=== PATIENT | male | born 1955 | race Caucasian/White ===

== ENCOUNTER 2024-09-25 12:09 | Inpatient (IN) | payer MEDICARE, OTHER, SELFPAY ==
[2024-09-25 10:06] VITALS: BP 116/60
--- NOTE | 2024-09-25 10:49 | ED.GENMED ---
History of Present Illness
General
Chief Complaint: Abnormal Lab Value
Source: patient
Exam Limitations: none
Time Seen by Provider: 09/25/24 10:19
Nursing documentation reviewed up to this point in time: agreed with
History of Present Illness
History of Present Illness:
Patient recently diagnosed with possible recurrent lymphoma, presents to ED secondary to 3-week history of night sweats, low-grade fever, fatigue, and decreased appetite, along with abdominal distention. Patient had blood work performed this
morning, as ordered by his oncologist, which revealed abnormal kidney function. With clinical concern for potential tumor lysis syndrome, patient was referred to ED for an evaluation. Denies nausea, vomiting, or diarrhea. Denies coughing. Denies
rash. Denies headache. Denies dizziness.
Past History
Past History
ED Past Medical History: Other (She has a history of Armstrong's esophagus )
ED Past Surgical History: Cholecystectomy and Other (Has had some metal removed from his )
Review of Systems
Review of Systems
Allergies reviewed?: Yes
All Other Systems: ROS reviewed and negative except as documented in HPI and ROS
Constitutional: Reports fever, fatigue and night sweats
EENT: Reports no symptoms
Respiratory: Reports no symptoms; Denies cough
Cardiac: Reports no symptoms
ABD/GI: Reports other (Abdominal distention); Denies abdominal pain, vomiting or diarrhea
: Reports no symptoms
Musculoskeletal: Reports no symptoms
Skin: Reports no symptoms
Neurological: Reports no symptoms
Phy Exam
Physical Exam
Physical Exam:
Physical Exam
General: mild distress, not acutely ill. afebrile. fatigued appearing
Head: nc/at. eomi
Neck: supple. no meningeal signs.
Heart: s1/s2 regular rate and rhythm, no murmur.
Lungs: no acute respiratory distress. clear bilaterally
Abdomen: normal bowel sounds. not tender. mild distention noted
Neuro: alert and oriented x 3. no focal neurological deficits
Skin: no rash
Psychiatric: well kept. interactive and cooperative
Extremities: no edema. no calf tenderness.
Course
Orders/Labs/Results
Orders:
Orders
09/25/24 10:20
Urinalysis Reflex To Culture Urgent
Date Specimen was Collected: 09/25/24
Time Specimen was Collected: 12:49
09/25/24 10:25
Complete Blood Count/With Diff Urgent
Comprehensive Metabolic Panel Urgent
Magnesium Urgent
Phosphorus Urgent
09/25/24 11:19
CT Abd/pel Without Iv Or Oral Urgent
Comment:
Reason For Exam: abdominal distension, ELIGIO
09/25/24 11:20
UA Reflex to Culture [Urinalysis Reflex To Culture] Stat
Date Specimen was Collected: 09/25/24
Time Specimen was Collected: 12:49
09/25/24 11:21
ONCOLOGY CONSULT Routine
Consulting Provider: Gigi Garcia
Was physician already notified: Yes
Reason for consult: recurrent lymphoma
Urine Creatinine Urgent
Date Specimen was Collected: 09/25/24
Time Specimen was Collected: 12:49
Urine Osmolality Random [Osmolality, Random Urine] Urgent
Date Specimen was Collected: 09/25/24
Time Specimen was Collected: 12:49
Urine Sodium Urgent
Date Specimen was Collected: 09/25/24
Time Specimen was Collected: 12:49
CR Chest - 2 Views Urgent
Comment:
Reason For Exam: fevers
09/25/24 11:22
NEPHROLOGY CONSULT Routine
Consulting Provider: Ruy Taveras V.
Was physician already notified: Yes
Reason for consult: ELIGIO
09/25/24 11:25
Add On- LAB Urgent
Tests Added?: Phosphorus
09/25/24 11:26
Add On- LAB Urgent
Tests Added?: DIrect bili, LDH, haptoglobin, retics, MARITZA polygel
09/25/24 11:32
Add On- LAB Urgent
Tests Added?: Uric acid
09/25/24 11:44
Pedraza Catheter [Catheter- Indwelling] As Directed
Reason for insertion: Acute Kidney Injury
Discontinue Date/Time: 09/28/24 0600
Intake/ Output As Directed
Frequency: Per unit guidelines
Comment: strict intake and output monitoring
Weight As Directed
Frequency: Daily
09/25/24 11:49
Add On- LAB Stat
Tests Added?: CPK
0.9% Sodium Chloride 1000 ml [Nss] 1,000 ml IV BOLUS
09/25/24 11:51
COVID-19 Antigen Stat
Source: Nasal Swab
Blood Culture Q30M
MELODY Source: Blood/Venous
Specimen Description:
Blood Culture Q30M
MELODY Source: Blood/Venous
Specimen Description:
Influenza A+B Rapid Molecular Stat
MELODY Source: Nasal Swab
Specimen Description:
I&O [Intake/ Output] As Directed
Frequency: Per unit guidelines
09/25/24 11:52
Admit/Transfer Patient As Directed
Co-Sign Provider:
Level of Care: Inpatient admission
Assign to:: Medical/Surgical
Physician / Group: Hospitalist
Diagnosis: ELIGIO
Reason for Hospitalization: ELIGIO
Expected length of stay greater than two midnights?: Yes
ELOS- Estimated Length of Stay in days: 5
I certify the patient meets the requirements for IP care: Yes
PRN Pain Medication Management As Directed
May give lesser potent ordered pain med per pt: Yes
preference::
Protocol:: Medication orders for pain may be administered in a
manner that supports deferring to patient preference
when the pt is:
- Requesting an ordered lesser potent pain medication.
Least to most potent pain medications are defined
as: acetaminophen < NSAID < tramadol < opioids
(morphine, oxycodone, hydromorphone).
- Requesting a lesser dose of the same medication IF
ORDERED.
- Requesting a less intrusive route of administration
if both routes are prescribed by the provider (PO <
IV).
09/25/24 11:54
Add On- LAB Urgent
Tests Added?: uric acid
Code Status As Directed
Resuscitation Status: Full Code
09/25/24 12:00
0.9% Sodium Chloride 500 ml [Nss] 500 ml IV 100 mls/hr
09/25/24 12:04
PT/INR [Prothrombin Time] Stat
PTT Stat
Abnormal Lab Results
09/25/24
10:25
WBC 4.4 L 10^3/uL
(4.8-10.8)
RBC 3.44 L 10^6/uL
(4.70-6.10)
Hgb 8.9 L g/dL
(13.0-18.0)
Hct 27.0 L %
(39.0-52.0)
MCV 78.5 L fL
(80.0-94.0)
MCH 25.9 L pg
(27.0-31.0)
RDW 15.0 H %
(11.5-14.5)
Plt Count 101 L 10^3/uL
(130-400)
Absolute Lymphs (auto) 0.3 L 10^3/uL
(1.2-3.4)
Immature Gran % 0.9 H %
(0-0.5)
Neutrophils % 82.6 H %
(42.2-75.2)
Lymphocytes % 7.8 L %
(20.5-51.1)
BUN 70 H mg/dl
(9-20)
Creatinine 3.0 H mg/dL
(0.7-1.3)
Glucose 165 H mg/dl
(70-99)
Total Bilirubin 7.0 H mg/dl
(0.2-1.3)
AST 90 H U/L
(17-59)
Alkaline Phosphatase 353 H U/L
(38-126)
Total Protein 5.0 L g/dl
(6.3-8.2)
Albumin 2.6 L g/dl
(3.5-5.0)
09/25/24 10:25
09/25/24 10:25
Vital Signs
Initial and Last Documented VS:
Initial Vital Signs
Temp Pulse Resp BP Pulse Ox
97.5 F 114 18 116/60 97
09/25/24 10:06 09/25/24 10:06 09/25/24 10:06 09/25/24 10:06 09/25/24 10:06
Last Documented Vital Signs
Temp Pulse Resp BP Pulse Ox
97.5 F 114 18 116/60 95
09/25/24 10:06 09/25/24 10:06 09/25/24 10:06 09/25/24 10:06 09/25/24 11:15
MDM/Problems Addressed
MDM/Problems Addressed:
Blood work reviewed and noted, significant for acute renal failure along with pancytopenia. Patient will be admitted for further evaluation and treatment.
Nephrology () and heme/onc () notified via [facility]
*Critical Care Note
Total Time (30-74mins, 75-104mins- exclusive of procedures): Not Applicable
ED Attending Note
-
Portions of this chart may have been created with voice recognition software.� Occasional wrong word or��sound alike� substitutions may have occurred due to the inherent limitations of voice recognition software.
Discharge Plan
Departure
Patient Disposition: Admit
Date of Disposition: 09/25/24
Time of Disposition: 11:15
Admit to: Med/Surg
Presentation/result/management discussed w/ accepting MD/DO: Hospitalist
Discharge Problem:
Acute renal failure (ARF), Dehydration, Pancytopenia
Interventions
Interventions:
*Risk Screen - Suicide Last Done: 09/25/24 10:06
*General Assessment Last Done: 09/25/24 10:06
*Neglect/Abuse Screening Last Done: 09/25/24 11:07
*ED COVID-19 Vaccine History Last Done: 09/25/24 10:06
[2024-09-25 10:58] LABS: ALT (SGPT) 35 U/L (0-50); AST (SGOT) 90 U/L (17-59); Albumin 2.6 g/dl (3.5-5.0); Alkaline Phosphatase 353 U/L (38-126); Blood Urea Nitrogen 70 mg/dl (9-20); Carbon Dioxide 22 mmol/L (22-30); Chloride 102 mmol/L (98-107); Glucose 165 mg/dl (70-99); Magnesium 1.9 mg/dl (1.6-2.3); Potassium 4.1 mmol/L (3.5-5.1); Sodium 137 mmol/L (135-145)
[2024-09-25 11:04] LABS: Hemoglobin 8.9 g/dL (13.0-18.0); Mean Corpuscular Hgb 25.9 pg (27.0-31.0); Mean Corpuscular Volume 78.5 fL (80.0-94.0); Mean Platelet Volume 9.4 fL (7.4-10.4); Platelet Count 101 10^3/uL (130-400); Red Blood Cell Count 3.44 10^6/uL (4.70-6.10); White Blood Cell Count 4.4 10^3/uL (4.8-10.8)
[2024-09-25 11:09] LABS: % Basophils 0.2 % (0-2); % Eosinophils 0.5 % (0-6); % Immature Granulocytes 0.9 % (0-0.5); % Lymphocytes 7.8 % (20.5-51.1); % Neutrophils 82.6 % (42.2-75.2); Absolute Lymphocytes 0.3 10^3/uL (1.2-3.4); Absolute Monocytes 0.4 10^3/uL (0.1-0.6); Absolute Neutrophils 3.6 10^3/uL (1.4-6.5); Nucleated Red Blood Cells % 0 % (-)
[2024-09-25] MEDS: NSS 500 IV ×2 (11:23→19:50)
--- NOTE | 2024-09-25 11:37 | W.CON.NEPH ---
Consultation
-
Date/Time Consultation Requested: 09/25/2024 11:00
Date/Time Consultation Performed: 09/25/2024 11:30 AM
Requesting Provider: Dr. Cisneros
Performing Provider: Dr. Taveras
Reason for Consultation: Acute kidney injury
Medical History
-
Chief Complaint: Acute kidney injury
History of Present Illness:
The patient is a 69-year-old male with a past medical history of lymphoma. There has been strong suspicion for recurrence of his lymphoma. The patient has a history of Armstrong's esophagitis and is maintained on Protonix and Pepcid. he presented to
the emergency room with 3-week history of B symptoms including night sweats fevers fatigue decreased appetite and also noted abdominal distention. His oncologist had ordered routine lab work which noted acute renal failure with a creatinine
elevation to 3. There was significant concern for possible tumor lysis syndrome and he was sent to the emergency room for further evaluation. Of note the patient had been taking Naprosyn 400 mg twice daily the week prior to this admission for his
fever.
Past Medical History
Lymphoma
Armstrong's esophagitis
Social History
Tobacco: Non-Smoker
Alcohol: None
Family History
No chronic kidney disease
Allergies / Home Medications
Allergy/AdvReac Type Severity Reaction Status Date / Time
No Known Allergies Allergy Verified 09/25/24 10:10
�Medication �Instructions �Recorded �Confirmed �Type
metformin 1,000 mg tablet 1,000 mg PO BID 08/20/18 10/12/22 History
pantoprazole 40 mg tablet,delayed 40 mg PO BID 08/26/18 10/12/22 History
release
allopurinol 300 mg tablet 1 tab PO DAILY 10/01/20 10/12/22 History
famotidine 40 mg tablet 40 mg PO BID 10/12/22 10/12/22 History
Review of Systems
-
History Source: Patient
All other systems: Negative unless noted
Constitutional: Fever, Fatigue and Night Sweats
Abdomen/GI: Anorexia and Other (Abdominal distended)
: Other (Some noted decreased urine output)
Physical Exam
Vital Signs
Vital Signs
Temp Pulse Resp BP Pulse Ox
97.5 F 114 18 116/60 95
09/25/24 10:06 09/25/24 10:06 09/25/24 10:06 09/25/24 10:06 09/25/24 11:15
Lab Results
09/25/24 10:25
09/25/24 10:25
WBC 4.4 10^3/uL (4.8-10.8) L 09/25/24 10:25
RBC 3.44 10^6/uL (4.70-6.10) L 09/25/24 10:25
Hgb 8.9 g/dL (13.0-18.0) L 09/25/24 10:25
Hct 27.0 % (39.0-52.0) L 09/25/24 10:25
Plt Count 101 10^3/uL (130-400) L 09/25/24 10:25
Sodium 137 mmol/L (135-145) 09/25/24 10:25
Potassium 4.1 mmol/L (3.5-5.1) 09/25/24 10:25
Chloride 102 mmol/L (98-107) 09/25/24 10:25
Carbon Dioxide 22 mmol/L (22-30) 09/25/24 10:25
BUN 70 mg/dl (9-20) H 09/25/24 10:25
Creatinine 3.0 mg/dL (0.7-1.3) H 09/25/24 10:25
eGFR 21.80 09/25/24 10:25
Glucose 165 mg/dl (70-99) H 09/25/24 10:25
Calcium 9.0 mg/dl (8.4-10.2) 09/25/24 10:25
Albumin 2.6 g/dl (3.5-5.0) L 09/25/24 10:25
Physical Exam
General: AOx3, Nontoxic , NAD
HEENT: PERRL, EOMI, Anicteric, Conjunctivae Clear, Ear/Nose Intact, Hearing Normal, Oropharynx Clear/Moist, Dentition Intact, Facial Symmetry, Neck Supple, Neck: Trachea Midline, No JVD and No Thyromegaly, no Bruits
Respiratory: Clear to auscultation bilaterally with normal lung exersion
Cardiac: S1/S2 and Regular Rate/Rhythm
Breast: Deferred by me
Abdomen: Soft, Nontender, distended, Normal Bowel Sounds and No Hepatosplenomegaly
Rectal: Deferred by Provider
Genito-urinary: No Costovertebral Tenderness
Extremities: No Clubbing, No Cyanosis and No Edema
Skin: No Rash or open lesions
Neuro: Nonfocal/Grossly Intact, CN II-XII (Intact) and Strength (Musculoskeletal exam 5 out of 5 both upper and lower extremities)
Hematologic/Lymphatic: No Cervical Lymphadenopathy, No Submandibular Lymphadenopathy and No Supraclavicular Lymphadenopathy
Psych: Mood/afflect pleasant, Insight/judgement good and Appropriate
Vascular: plus 2 pedal and radial pulses
Data Reviewed
-
CT Scan: Report Reviewed by me (CT of abdomen and pelvis to be reviewed)
Labs: Labs Reviewed by me (BMP CBC)
Old Records: Reviewed (Reviewed previous records in electronic medical record from February 2023 creatinine 0.9)
Assessment/Plan
-
Impression:
Acute renal failure (3.0)
History of prior lymphoma with suspicion for recurrence given B symptoms
Pancytopenia
Armstrong's esophagus
Hypoalbuminemia
Long-term Diabetes
Plan:
ELIGIO:
-Strong suspicion for tumor lysis syndrome
-Obtain serum uric acid level, if elevated will likely need Rasburicase
-Would check CT of abdomen and pelvis to evaluate for abdominal distention and possible obstruction
-Will administer IV fluids NSS 200cc/hr
-With hold metformin in setting of acute renal failure
-Check urine sodium urine creatinine urinalysis and urine protein to creatinine ratio
-Must be hypervigilant with phosphate, calcium, and potassium in setting of tumor lysis syndrome
[2024-09-25 11:46] LABS: Phosphorus 3.6 mg/dl (2.5-4.5)
--- NOTE | 2024-09-25 11:58 | HPS.HSE ---
Family Physician
-
Family Physician: Saqib Ware
Chief Complaint
-
malaise
History of Present Illness
69yo M with PMHx of cholecystectomy, large B-cell lymphoma in remission for 5 years, GERD, DM, Hx of prostate CA s/p resection sent by oncologist due to abnormal bloodwork. Patient started to feel generally unwell about two months ago, had some
cough, fevers, nightsweats that gradually became more pronounced and were similar to his previous symptoms during active phase of lymphoma. He also developed worsening of the abdominal distension two weeks before admission with dark urine and
intermittent vomiting with bile. Most recent vomiting episode was at night before admission. He is passing gas and had BM in the morning of the admission day.
Labs showed ELIGIO, elevated bilirubin, alk.phos and pancytopenia
Medical History
Past Medical History
Past Medical History: Reports Other
Additional Past Medical History:
see HPI
Past Surgical History: Reports Other
Additional Past Surgical History:
See HPI
Social History
Tobacco: Other (occasional cigars)
Alcohol: Occasional
Family History
Family History: Not pertinent
Allergies / Home Medications
Allergies reflects when Allergies were last updated in [facility].
Home Medications with original date entered in [facility]
Allergy/Medication List:
Allergies
Allergy/AdvReac Type Severity Reaction Status Date / Time
No Known Allergies Allergy Verified 09/25/24 10:10
Home Medications
metformin 1,000 mg tablet 1,000 mg PO BID 08/20/18
pantoprazole 40 mg tablet,delayed release 40 mg PO DAILY 08/26/18
glipizide 5 mg tablet 5 mg PO BID 09/25/24
pantoprazole 40 mg tablet,delayed release 40 mg PO QPM PRN acid reflux/heartburn 09/25/24
Review of Systems
-
A 12 point ROS was completed and negative except as noted: Yes
Constitutional: Reports See HPI
Physical Exam
Vital Signs
Vital Signs
Temp Pulse Resp BP Pulse Ox
97.5 F 114 18 116/60 95
09/25/24 10:06 09/25/24 10:06 09/25/24 10:06 09/25/24 10:06 09/25/24 11:15
Physical Exam
General: Comfortable, Conversant and Appears in Distress
HEENT: NormoCephalic, Anicteric and Moist mucous membranes
Respiratory: Clear; No Wheezes or Crackles
Cardiac: S1/S2, Regular Rhythm and Tachycardia
GI: Non Tender and Distended
Genito-urinary: No costovertebral tender
Musculoskeletal: No Clubbing, No Cyanosis and No Edema
Skin: Warm; No Rash or Jaundice
Neuro: Awake, Alert, Oriented and AO x 3
Psych: Calm
Laboratory Results
-
09/25/24 10:25
09/25/24 10:25
Laboratory Results
Total Bilirubin 7.0 mg/dl (0.2-1.3) H 09/25/24 10:25
AST 90 U/L (17-59) H 09/25/24 10:25
ALT 35 U/L (0-50) 09/25/24 10:25
Alkaline Phosphatase 353 U/L (38-126) H 09/25/24 10:25
Data Reviewed
-
Lab Data: Labs Reviewed by me
Impression/Plan
-
A/P:
#ELIGIO concern for TLS due to large B-cell lymphoma recurrence
Ca, Potassium WNL
check Phosphorus, Uric acid
Oncology for advise on rasburicase
IVF
Nephrology
Check UA, UOsm, [place], UCr
Pedraza and follow I&O
follow Cr
#Fevers
most likely CA induced
Chest XR, blood Cx, UA
check COVID-19 and Influenza PCR
empyric Abx
#Abdominal distension
hepatosplenomegally?
CT abd
#Bilirubinemia
#Elevated AST
check direct bili, LDH, haptoglobin, Croombs, CPK
CT abd
follow LFT
#Elevated alk.phos
since s/p cholecystectomy - most likely 2/2 lymphoma
#Pancytopenia
follow CBC and transfuse as needed
#DM type 1 with unspecified complications
Insulin SS, DM diet, Accuchecks
hold oral hypoglycemics
#GERD
cont PPI
DVT ppx SCDs
Full code
I have spent at least 78min reviewing chart, test results, communication with consultants, family and providing direct patient care
[2024-09-25 12:22] LABS: COVID-19 Antigen Negative (Negative)
[2024-09-25] MEDS: NSS 1000 IV (13:23)
[2024-09-25 13:32] LABS: Reticulocyte Count 0.4 % (0.4-2.8)
--- NOTE | 2024-09-25 13:34 | CM ---
Attempted to see patient but was getting procedure. Dgtr outside room reviewed status prior to admit. Patient and live in 2 level home, no steps to enter. they have first floor full bathroom. Bedroom up 13 steps. He does not use any DME. In
2019 used [facility]. No history of SNF.
PCP Jayden Richardson
[facility]: [facility].
PLAN: home
[2024-09-25 13:40] LABS: Urine Albumin 2+ (Neg - Trace); Urine Bilirubin 2+ (Negative); Urine Character Cloudy (Clear); Urine Color Amber; Urine Glucose 1+ (Negative); Urine Ketone 1+ (Negative); Urine Leukocyte 2+ (Negative); Urine Nitrite Positive (Negative); Urine Occult Blood 1+ (Negative); Urine Specific Gravity 1.025 (<1.030); Urine Urobilinogen 4+ (Neg - 1+)
[2024-09-25 13:47] LABS: Urine Urothelial Cell 0-2 /LPF (FEW)
[2024-09-25 13:49] LABS: Urine Bacteria Moderate (Negative); Urine White Cell 26-30 /HPF (0-5)
[2024-09-25 13:52] LABS: INR 1.15; PT 15.2 Sec (11.4-14.6)
[2024-09-25 13:53] LABS: APTT 37.5 Sec (23.4-35.0)
[2024-09-25 13:54] LABS: Osmolality Urine 322 mOsm/kg (300-900)
--- NOTE | 2024-09-25 13:54 | W.PN.UPDATE ---
Update Note
Progress Note Update
#Elevated direct Bili
MRCP
NPO
GI consult
Follow LFT
[facility]
[2024-09-25 14:04] LABS: Urine Sodium 36 mmol/L (30-90)
[2024-09-25 14:05] LABS: Protein/creatinine Ratio 0.1; Urine Protein 33 mg/dl
[2024-09-25 14:43] LABS: Creatine Phosphokinase < 20 U/L (55-170); Uric Acid 9.2 mg/dl (3.5-8.5)
--- NOTE | 2024-09-25 14:54 | CON.GS ---
Consultation
-
Reason for Consultation: Umbilical hernia
Medical History
-
Chief Complaint: Abdominal distention, malaise
History of Present Illness:
Patient is a 69-year-old male being admitted by the hospitalist service after referral from his oncologist due to concern for diffuse large B-cell lymphoma relapse.
CT abdomen/pelvis imaging was performed due to abdominal distention and radiologist reading for possible incarcerated/strangulated hernia prompting hospitalist request for general surgery consult.
Patient seen and examined in the emergency department. His and daughter at bedside. He denies any localizing pain in the region of his known umbilical hernia that has been present since the 1980s. Patient's states that he has been
living with his hernia because he was previously told it was inoperable. Patient denies any acute changes in his hernia with regards to size and visual appearance. He does complain of a generalized abdominal distention and tightness but again no
localizing symptoms.
In further discussions patient was recently seen in outpatient surgical evaluation with Dr. Olivares and has been scheduled for excisional biopsy right axillary lymph node on 09/30/2024.
Past Medical History
Past Medical History: Other (GERD, DM2, history of prostate cancer, history of diffuse large B-cell lymphoma)
Past Surgical History: Other (Knee arthroscopy, exploratory laparotomy/cholecystectomy due to traumatic injury from lawnmower, radical perineal prostatectomy, excision lipoma)
Social History
Tobacco: Former Smoker
Personal:
Living: With Family
Family History
Family History: Reviewed & Not Pertinent
Allergies / Home Medications
Allergy/AdvReac Type Severity Reaction Status Date / Time
No Known Allergies Allergy Verified 09/25/24 10:10
�Medication �Instructions �Recorded �Confirmed �Type
metformin 1,000 mg tablet 1,000 mg PO BID 08/20/18 09/25/24 History
pantoprazole 40 mg tablet,delayed 40 mg PO DAILY 08/26/18 09/25/24 History
release
glipizide 5 mg tablet 5 mg PO BID 09/25/24 09/25/24 History
pantoprazole 40 mg tablet,delayed 40 mg PO QPM PRN acid 09/25/24 09/25/24 History
release reflux/heartburn
Review of Systems
-
A 10 point review of systems was completed, and was negative except as per HPI.
Physical Exam
Vital Signs
Temp Pulse Resp BP Pulse Ox
97.5 F 114 18 116/60 96
09/25/24 10:06 09/25/24 10:06 09/25/24 10:06 09/25/24 10:06 09/25/24 12:17
09/24/24 09/25/24 09/26/24
06:59 06:59 06:59
Actual Weight 96.2 kg
Lab Results
09/25/24 10:25
09/25/24 10:25
WBC 4.4 10^3/uL (4.8-10.8) L 09/25/24 10:25
Hgb 8.9 g/dL (13.0-18.0) L 09/25/24 10:25
Hct 27.0 % (39.0-52.0) L 09/25/24 10:25
Plt Count 101 10^3/uL (130-400) L 09/25/24 10:25
Abs Immat Gran (auto) 0.0 10^3/uL (0-0.05) 09/25/24 10:25
Neutrophils % 82.6 % (42.2-75.2) H 09/25/24 10:25
Physical Exam
General: Well Developed, Well Nourished, No Apparent Distress and Comfortable
HEENT: Normocephalic and Moist Mucous Membranes
Respiratory: Non Labored Respirations
Cardiac: Regular Rhythm
GI: Soft, Non Tender, Distended and Other (Soft, nontender umbilical hernia. Did not attempt to reduce. No erythema, no skin thickening)
Neuro: AO x 3
Psych: Calm
Data Reviewed
-
CT Scan: Image Personally Visualized and interpreted, Report Reviewed by me, Discussed with Physician, Discussed with Patient and Discussed with Family
Assessment / Plan
-
Assessment: 69-year-old male admitted with ELIGIO, suspected diffuse large B-cell lymphoma relapse.
Longstanding umbilical hernia, partially reducible - no subjective or objective signs of strangulation
Plan: With regards to his umbilical hernia there are no clinical signs of strangulation. It is partially reducible and fat-containing. Did not attempt to fully reduce. No acute umbilical hernia intervention is needed or anticipated.
Dr. Olivares will also follow-up with patient regarding potential timing of excisional lymph node biopsy which is currently scheduled for 09/30/2024.
--- NOTE | 2024-09-25 15:34 | CON.GI ---
Addendum entered and electronically signed by Stormy Narayan DO 09/25/24 16:48:
The patient was seen and examined by me independently in collaboration with the nurse practitioner.
Past medical history/social history/medications/allergies/family history reviewed.
Lab data and imaging data reviewed.
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 Elizabeth), Prostate Ca s/p radical
prostatectomy, hx cholecystectomy who presents with B symptoms concerning for recurrence of DLBL. PET CT scan showed b/l axillary LN, mediastinal LN and b/l hilar LN with increased FDG uptake suggestive for relapse. He was seen by oncology
yesterday, Hgb 9.3, Plt 108, BUN 60/Cr. 2.47, Tbili 5.1, Alk phos 298, AST 78, ALT 34, LDH 590, overall clinical picture concerning for tumor lysis syndrome. Repeat labs upon arrival: WBC 4.4, Hgb 8.9, MCV 78.5, Plt 101, PT 15.2, INR 1.15, Na 137, K
4.1, Cl 102, CO2 22, BUN 70, Cr. 3.0, uric acid 9.2, Tbili 7, Dbili 6, AST 90, Alk phos 353, CK <20, Total protein 5, Albumin 2.6.
Physical exam significant for scleral icterus, +hepatosplenomegaly, jaundice; umbilical hernia
#Elevated Liver Enzymes
#Hepatosplenomegaly
#Lymphadenopathy
#Pancytopenia
#ELIGIO
Direct hyperbiliurbinemia with Tbili 7/bili 6, Elevated alk phos 353 and AST 90. Given overall clinical picture, could represent infiltrative disease
-significant lymphadenopathy on recent PET-CT, IR biopsy pending
-recommend hepatitis serologies, ferritin, SPEP, IgG4 subclasses
-MRI/MRCP
-direct bili not consistent with hemolysis
Original Note:
Consultation
-
Date/Time Consultation Requested: 09/25/24 1355
Date/Time Consultation Performed: 09/25/24 1500
Requesting Provider: Dr. Umanzor
Performing Provider: Dr. Narayan/ADRIANNA Horn
Reason for Consultation: elevated LFTs
Medical History
Chief Complaint / HPI
Chief Complaint: fever, fatigue, weakness, decreased appetite, abd distention
History of Present Illness:
69-year-old male with past medical history of large B-cell lymphoma diagnosed 2020 treated with R-CHOP, Armstrong's esophagus diagnosed in 1979 with progression to high-grade dysplasia treated with 4 rounds of RFA with last endoscopy in March 2024
that was negative for high-grade dysplasia, GERD and prostate cancer who presents to the emergency room with 3-week history of abdominal bloating and distention, fevers since 09/12/2024, night sweats, weakness, fatigue, nausea and vomiting, with the
inability to take in any significant oral intake. Patient had initiated outpatient workup with chest x-ray [facility]. PET scan with oncology showing bilateral axillary lymph nodes, mediastinal lymph nodes concerning for relapse and
B-cell lymphoma. Saw outpatient surgery for evaluation for lymph node biopsy. Patient had outpatient labs showing acute kidney injury, elevated LFTs as well as a pancytopenia. Patient was sent to the emergency room for further evaluation. We are
asked to evaluate for elevated LFTs. The patient has a long GI history dating back to 1979 when he was diagnosed with Armstrong's esophagus. He was followed by Dr. Ramos for this taking pantoprazole 40 mg twice daily. He had routine surveillance
for this. The patient has been followed by Dr. Krista Elizabeth for the past 4 years. This developed into high-grade dysplasia and had treatment with RFA x 4. Last 1 being in September 2023. Repeat endoscopy in March 2024 without any further
high-grade dysplasia found. He continues to follow with Dr. Ramos for his routine colonoscopy. He does have a history of polyps. His mother has a history of colon cancer. His last colonoscopy was in December 2020. He has colonoscopies every 5
years. He will be due in 10/2025. The patient quit smoking age 33. He drinks approximately 4 ounces of bourbon on the weekends and maybe 6-8 beers. He denies any prior history of liver disease. He denies any tattoos, piercings, IV drug use or
cocaine straws. He does not eat any raw shellfish. He does have a cabin in [facility] [place], [place] and he does [place]. He does not eat mushrooms from the forest. He did trephinate a bobcat in June however on he shared amongst 5 friends and no one became
ill. He denies any recent sick contacts. When the patient developed onset of fevers he was taking Tylenol 1300 mg at a time. This is usually once a day. He was also using Aleve 220 mg (2 tablets) twice a day. He did this for approximately 1
week only. He stopped taking this around 09/19/2024. The patient does have some mild tenderness in the right upper quadrant upon palpation only. CT imaging does show hepatosplenomegaly. Daily medications include metformin, pantoprazole,
allopurinol and famotidine. Otherwise the patient denies any melena, hematochezia, dysphagia or odynophagia. The patient did notice that his urine became an orange color approximately 3 weeks ago. His stool is still dark brown. He denies any
pruritus or itching. His sclera are slightly icteric.
Past Medical History
Past Medical History: Other (Large B-cell lymphoma(2019 treated with R-CHOP) Armstrong's esophagus with history of high-grade dysplasia status post RFA x 4, prostate cancer status post prostatectomy, diabetes)
Past Surgical History: Cholecystectomy and Other (Knee arthroscopy, ex lap for shrapnel from lawnmower injury, radical perineal prostatectomy (10/2018), neck lipoma excision, radiofrequency ablation for Armstrong's esophagus)
Social History
Tobacco: Former Smoker (Quit at age 33 however has occasional cigar)
Alcohol: Occasional (Drinks on the weekends, 4 ounces of bourbon or 6-8 beers)
Drug: None
Personal:
Living: With Family
Family History
Family History: Other (Mother with history of colon cancer, no other GI malignancies or inflammatory bowel disease)
Allergies / Home Medications
Allergy/AdvReac Type Severity Reaction Status Date / Time
No Known Allergies Allergy Verified 09/25/24 10:10
�Medication �Instructions �Recorded
metformin 1,000 mg tablet 1,000 mg PO BID 08/20/18
pantoprazole 40 mg tablet,delayed 40 mg PO DAILY 08/26/18
release
glipizide 5 mg tablet 5 mg PO BID 09/25/24
pantoprazole 40 mg tablet,delayed 40 mg PO QPM PRN acid 09/25/24
release reflux/heartburn
Review of Systems
-
All other systems: A 12 pt ROS was Negative except as stated above in HPI
Vital Signs
Temp Pulse Resp BP Pulse Ox
97.5 F 114 18 116/60 96
09/25/24 10:06 09/25/24 10:06 09/25/24 10:06 09/25/24 10:06 09/25/24 12:17
Physical Exam
Exam
General: No Apparent Distress
HEENT: Other (Sclera slightly icteric)
Respiratory: Clear
Cardiac: Regular Rhythm
GI: Soft, Normal Bowel Sounds, Tender (Mild right upper quadrant tenderness) and Distended (Mildly distended.)
Skin: Warm and Dry
Neuro: AO x 3
Psych: Calm
Results
WBC 4.4 10^3/uL (4.8-10.8) L 09/25/24 10:25
Hgb 8.9 g/dL (13.0-18.0) L 09/25/24 10:25
Hct 27.0 % (39.0-52.0) L 09/25/24 10:25
MCV 78.5 fL (80.0-94.0) L 09/25/24 10:25
Plt Count 101 10^3/uL (130-400) L 09/25/24 10:25
Absolute Neuts (auto) 3.6 10^3/uL (1.4-6.5) 09/25/24 10:25
PT 15.2 Sec (11.4-14.6) H 09/25/24 13:25
INR 1.15 09/25/24 13:25
APTT 37.5 Sec (23.4-35.0) H 09/25/24 13:25
Sodium 137 mmol/L (135-145) 09/25/24 10:25
Potassium 4.1 mmol/L (3.5-5.1) 09/25/24 10:25
Chloride 102 mmol/L (98-107) 09/25/24 10:25
Carbon Dioxide 22 mmol/L (22-30) 09/25/24 10:25
BUN 70 mg/dl (9-20) H 09/25/24 10:25
Creatinine 3.0 mg/dL (0.7-1.3) H 09/25/24 10:25
Calcium 9.0 mg/dl (8.4-10.2) 09/25/24 10:25
Total Bilirubin 7.0 mg/dl (0.2-1.3) H 09/25/24 10:25
AST 90 U/L (17-59) H 09/25/24 10:25
ALT 35 U/L (0-50) 09/25/24 10:25
Alkaline Phosphatase 353 U/L (38-126) H 09/25/24 10:25
Diagnostic Image Results:
PET/CT 09/22/2024:
Hypermetabolic lymphadenopathy in the chest with multiple enlarged, FDG avid bilateral axillary, mediastinal, and bilateral hilar lymph nodes.Left AXILLARY lymph nodes with an SUV max of up to 7.3. Right AXILLARY lymph nodes with an SUV max of up to
6.7. Mediastinal lymph nodes with an SUV max of up to 9.0. Left hilar lymph nodes with an SUV max of 4.6. Right hilar lymph nodes with an SUV max of 3.5.Subsegmental atelectasis in the bilateral lung bases. Small hiatal hernia.
ABDOMEN and PELVIS:
The spleen is enlarged and hypermetabolic. The spleen measures 19 cm in size with an SUV max of 8.3.
FDG avid lymph nodes in the upper abdomen and retroperitoneum. Periportal lymph nodes with an SUV max of 6.1. Retroperitoneal lymph nodes with an SUV max of 4.9.
Physiologic uptake in the GI and tracts.
Hepatic steatosis. Surgically absent gallbladder. Moderate fat-containing umbilical hernia. Colonic diverticulosis. Collapsed urinary bladder. Surgically absent prostate gland. Surgical clips in the left inguinal region
CT abdomen pelvis without IV or oral contrast 09/25/2024:
IMPRESSION: No acute pathology of the abdomen or pelvis identified.
Hepatosplenomegaly. Stable
Fat-containing umbilical hernias. One contains associated fluid/thickening. Incarceration/strangulation cannot be excluded. Stable.
Moderate fecal material throughout the colon. Stable.
Left adrenal mass. Stable from 2021 suggesting it is benign.
CXR 09/25/24:
IMPRESSION:
Mild left lower lobe atelectasis versus scarring. Stable
Prior GI Procedures:
EGD: Per patient 03/2024 Dr. Krista Elizabeth
EGD with RFA 09/2023 Dr. Krista Elizabeth
Colonoscopy: Dr. Ramos Per patient 11/2020. Due for repeat 11/2025
History of Armstrong's with multiple endoscopic procedures with Dr. Ramos since 1979
Assessment / Plan
-
69-year-old male with past medical history of large B-cell lymphoma diagnosed 2019 treated with R-CHOP, Armstrong's esophagus diagnosed in 1979 with progression to high-grade dysplasia treated with 4 rounds of RFA with last endoscopy in March 2024
that was negative for high-grade dysplasia, GERD and prostate cancer who presents to the emergency room with 3-week history of abdominal bloating and distention, fevers since 09/12/2024, night sweats, weakness, fatigue, nausea and vomiting, with the
inability to take in any significant oral intake. Patient had initiated outpatient workup with chest x-ray [facility]. PET scan with oncology showing bilateral axillary lymph nodes, mediastinal lymph nodes concerning for relapse and
B-cell lymphoma. Saw outpatient surgery for evaluation for lymph node biopsy. Patient had outpatient labs showing acute kidney injury, elevated LFTs as well as a pancytopenia. Patient was sent to the emergency room for further evaluation. We are
asked to evaluate for elevated LFTs.
Impression:
Elevated LFTs and obstructive pattern: total bilirubin 7.0, direct bilirubin 6.0, AST at 90, ALT 35, alk phos 353
Suspected recurrence of diffuse large B-cell lymphoma
ELIGIO
pancytopenia
Constipation
Armstrong's esophagus
Plan:
-Check MRI without contrast with MRCP
-Await LDH and haptoglobin
-Check viral hepatitis studies, SPEP, ferritin, celiac, EBV panel
-Trend LFT, CBC, PT, INR
-Continue Pantoprazole 40 mg BID
-Will need bowel regimen, not much stool in rectum. Marked hepatosplenomegaly on CT imaging. Start Miralax as able.
-As per IM, Renal, Heme/Onc for other plans.
-Further recommendations to be forthcoming.
-
-
Thank you for consultation and allowing me to participate in the patient's care. Please call the global consumer sector vice president GI physician during the after hours with any questions or concerns.
[2024-09-25 15:35] VITALS: BP 109/53; BP_SYST 105
--- NOTE | 2024-09-25 16:20 | W.PN.UPDATE ---
Update Note
Progress Note Update
Attempted to see patient. He is in IR. Would maintain NPO after midnight to preserve option of surgery tomorrow. Tentatively for right axillary LN excisional bx and port-a-cath placement. Will see in the am.
[2024-09-25 16:44] VITALS: BP 128/57
[2024-09-25 16:54] VITALS: BP 126/57
[2024-09-25 17:33] VITALS: BP 146/74; BMI 32.7
--- NOTE | 2024-09-25 17:42 | PTCARENOTE ---
Pt walked from stretcher to bed x1 assist. Independent at baseline. Aaox3, morrow in tact draining blood tinged urine. VSS, admission complete by this RN. Pt does not complain of pain at the moment. Abdomen is distended. Oriented to room, call costa
within reach.
--- NOTE | 2024-09-25 17:47 | PHA.VAN.IN ---
Assessment
- Assessment
Renal Function: Appears elevated from baseline (03/13/23 BASELINE SCR: 0.9)
Concomitant Antimicrobials: ZOSYN
- Previous Dosing Experience
Previous Regimen: NONE
Plan
- Plan
Initial / Loading Dose: 1500MG
Maintenance Regimen: DOSING BY RANDOM LEVEL
Monitoring: RANDOM VANCOMYCIN LEVEL 09/26/24 AM
Pharmacokinetics Vancomycin I
- -
Patient Age: 69
Patient Sex: Male
Vancomycin Day #: 1
Indication: Other
Requesting Provider: BRIANDA
Height / Weight:
Height 5 ft 7 in
Actual Weight 94.71 kg
Pertinent Past Medical History: LARGE B CELL LYMPHOMA; PROSTATE CA; DM
- Vital Signs / Lab Results
Temp Pulse Resp BP Pulse Ox
97.7 F 114 20 146/74 95
09/25/24 17:33 09/25/24 17:33 09/25/24 17:33 09/25/24 17:33 09/25/24 17:33
Lab Results - Hematology
09/25/24
10:25
WBC 4.4 L
Lab Results - Chemistry
09/25/24
10:25
BUN 70 H
Creatinine 3.0 H
Albumin 2.6 L
Lab Results - Urine
09/25/24 09/25/24
13:09 13:10
Urine Nitrite (Reflex) Positive A Cancelled
Leukocyte Esterase Rfl 2+ A Cancelled
Urine WBC (Reflex) 26-30 A
Ur Squamous Epith Cells 11-15
Urine Bacteria (Reflex) Moderate A
Microbiology Results
09/25/24 11:51 Influenza Types A & B (DEONDRE) - Final
Nasal Swab Negative for Influenza A & B, NAAT
Negative results must be combined with clinical observations
and patient history.
Nucleic Acid Amplification test (NAAT)performed on the
[employer] platform.
[2024-09-25 17:48] VITALS: BMI 32.7
[2024-09-25] MEDS: ZOSYN IV (18:10)
[2024-09-25 18:36] LABS: Blood Urea Nitrogen 72 mg/dl (9-20); Calcium 8.7 mg/dl (8.4-10.2); Carbon Dioxide 22 mmol/L (22-30); Chloride 105 mmol/L (98-107); Estimated Creatinine Clearance 23 ml/min; Glucose 96 mg/dl (70-99); Potassium 4.4 mmol/L (3.5-5.1); Sodium 137 mmol/L (135-145); eGFR 19.44
[2024-09-25 19:16] LABS: Glucose - Point of Care 87 mg/dl (70-99)
[2024-09-25 19:24] LABS: Hepatitis B Surface Antigen Negative (Negative)
[2024-09-25 19:42] LABS: Hepatitis A Antibody, Total Negative (Negative); Hepatitis B Core Ab, Total Negative (Negative); Hepatitis B Surface Antibody Negative; Hepatitis C Antibody Negative (Negative)
[2024-09-25] MEDS: NSS 15 ML IV ×2 (19:49→20:30)
[2024-09-25] MEDS: ELITEK 50 MG IV (19:50)
[2024-09-25 20:24] LABS: Glucose - Point of Care 115 mg/dl (70-99)
[2024-09-25] MEDS: ZOSYN 50 IV (20:31)
[2024-09-25] MEDS: VANCOCIN 530 MG IV (21:51)
[2024-09-25 23:13] VITALS: BP 115/60
[2024-09-26] VITALS (7 sets, daily range): BP systolic 79–129; BP diastolic 56–77; BMI 33.1
[2024-09-26 01:26] LABS: Uric Acid - Rasburicase 7.4 mg/dl (3.5-8.5)
[2024-09-26] MEDS: ZOSYN 50 IV ×3 (02:05→20:34)
[2024-09-26] MEDS: NSS IV ×2 (02:07→19:49)
[2024-09-26] MEDS: NSS 500 IV (02:07)
[2024-09-26] MEDS: MORPHINE SULFATE 1 MG IV (02:28)
[2024-09-26] MEDS: NSS 1000 IV (05:40)
[2024-09-26 06:35] LABS: Uric Acid - Rasburicase 6.5 mg/dl (3.5-8.5)
[2024-09-26 06:38] LABS: INR 1.18; PT 15.5 Sec (11.4-14.6)
[2024-09-26 06:56] LABS: ALT (SGPT) 31 U/L (0-50); AST (SGOT) 75 U/L (17-59); Albumin 2.3 g/dl (3.5-5.0); Alkaline Phosphatase 270 U/L (38-126); Blood Urea Nitrogen 77 mg/dl (9-20); Calcium 8.7 mg/dl (8.4-10.2); Carbon Dioxide 22 mmol/L (22-30); Chloride 107 mmol/L (98-107); Direct Bilirubin 6.8 mg/dl (0.0-0.4); Estimated Creatinine Clearance 20 ml/min; Glucose 106 mg/dl (70-99); Magnesium 1.9 mg/dl (1.6-2.3); Potassium 4.8 mmol/L (3.5-5.1); Sodium 138 mmol/L (135-145); Total Bilirubin 7.6 mg/dl (0.2-1.3); Total Protein 4.7 g/dl (6.3-8.2); Uric Acid 6.5 mg/dl (3.5-8.5); eGFR 16.42
--- NOTE | 2024-09-26 08:07 | W.PN.ONC2 ---
Today's Communication / Plan
-
.
Impression
Impression
Suspected recurrent DLBCL, initially tx with RCHOP 2020. s/p IR Left LN core bx 09/25
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
EILGIO
pancytopenia
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
elevated Tbili/Dbili
urine culture negative to date
Plan
Plan
excisional LN bx
mediport placement
f/u hemolysis panel, though low suspicion with normal retic
allopurinol, renal dosing
CBC, CMP, LDH, urate, phos daily
f/u nephrology consult
Subjective/Objective
Subjective
no new complaints
Vital Signs:
Vital Signs
Temp Pulse Resp BP Pulse Ox
98.3 F 112 17 127/63 95
09/26/24 07:35 09/26/24 07:35 09/26/24 07:35 09/26/24 07:35 09/26/24 07:35
Lab Results:
Laboratory Data
WBC 4.4 10^3/uL (4.8-10.8) L 09/25/24 10:25
Hgb 8.9 g/dL (13.0-18.0) L 09/25/24 10:25
Plt Count 101 10^3/uL (130-400) L 09/25/24 10:25
PT 15.5 Sec (11.4-14.6) H 09/26/24 06:12
INR 1.18 09/26/24 06:12
APTT 37.5 Sec (23.4-35.0) H 09/25/24 13:25
eGFR 16.42 09/26/24 06:12
Orders
Orders
Orders From Last 24 Hours
09/25/24 13:49
Consult Interventional Radiology [[facility] CONSULT] Routine
09/25/24 14:49
SURGICAL CONSULT Routine
09/25/24 16:25
[facility] Pathology Routine
09/26/24 08:06
CBC/With Diff [Complete Blood Count/With Diff] Routine
CMP [Comprehensive Metabolic Panel] Routine
LDH Routine
Phos [Phosphorus] Routine
Uric Acid - Rasburicase Urgent
09/27/24 06:00
CBC/With Diff [Complete Blood Count/With Diff] IN AM
CMP [Comprehensive Metabolic Panel] IN AM
LDH IN AM
Phos [Phosphorus] IN AM
Uric Acid IN AM
09/28/24 06:00
CBC/With Diff [Complete Blood Count/With Diff] IN AM
CMP [Comprehensive Metabolic Panel] IN AM
LDH IN AM
Phos [Phosphorus] IN AM
Uric Acid IN AM
09/29/24 06:00
CBC/With Diff [Complete Blood Count/With Diff] IN AM
CMP [Comprehensive Metabolic Panel] IN AM
LDH IN AM
Phos [Phosphorus] IN AM
Uric Acid IN AM
09/30/24 06:00
CBC/With Diff [Complete Blood Count/With Diff] IN AM
CMP [Comprehensive Metabolic Panel] IN AM
LDH IN AM
Phos [Phosphorus] IN AM
Uric Acid IN AM
10/01/24 06:00
CBC/With Diff [Complete Blood Count/With Diff] IN AM
CMP [Comprehensive Metabolic Panel] IN AM
LDH IN AM
Phos [Phosphorus] IN AM
Uric Acid IN AM
[2024-09-26] MEDS: PROTONIX 40 MG PO (08:29)
[2024-09-26 08:39] LABS: Hematocrit 23.5 % (39.0-52.0); Mean Corpuscular Hgb 26.1 pg (27.0-31.0); Mean Corpuscular Volume 76.5 fL (80.0-94.0); Platelet Count 107 10^3/uL (130-400); Red Blood Cell Count 3.07 10^6/uL (4.70-6.10); Red Cell Dist. Width 15.4 % (11.5-14.5); White Blood Cell Count 4.2 10^3/uL (4.8-10.8)
[2024-09-26 08:50] LABS: Phosphorus 4.4 mg/dl (2.5-4.5)
--- NOTE | 2024-09-26 09:07 | PHA.VAN.FU ---
Vancomycin Assessment / Plan
- Assessment
Renal Function: SCR Decreasing (3.3->3.8)
WBC's are: Stable (4.2)
In the past 24 hrs, patient has been: Afebrile
Concomitant Antimicrobials: Piperacillin/Tazobactam
- Assessment - Therapeutic Drug Monitoring
Random Level: Vanco R lvl 15.0 ~8hrs after loading dose 1500mg given 09/25/242150
- Dosing Plan
Dosing by Level: Re-dose today
Dosing Comments: 500mg x1 to complete loading dose
- Monitoring Plan
Random Level: Vanco R lvl 09/27/24 06
- Follow Up
Pharmacy will continue to follow.
Vancomycin Follow UP
- -
Patient Age: 69
Patient Sex: Male
Vancomycin Day #: 2
Indication: Other
Requesting Provider: BRIANDA
Height / Weight:
Height 5 ft 7 in
Actual Weight 95.793 kg
Pertinent Past Medical History: LARGE B CELL LYMPHOMA; PROSTATE CA; DM
- Vital Signs / Lab Results
Temp Pulse Resp BP Pulse Ox
98.3 F 112 17 127/63 95
09/26/24 07:35 09/26/24 07:35 09/26/24 07:35 09/26/24 07:35 09/26/24 07:35
Lab Results - Hematology
09/25/24 09/26/24
10:25 06:14
WBC 4.4 L 4.2 L
Lab Results - Chemistry
09/25/24 09/25/24 09/26/24
10:25 18:06 06:12
BUN 70 H 72 H 77 H
Creatinine 3.0 H 3.3 H 3.8 H
Estimated Creat Clear 23 20
Albumin 2.6 L 2.3 L
09/26/24
08:06
BUN Cancelled
Creatinine Cancelled
Estimated Creat Clear Cancelled
Albumin Cancelled
Lab Results - Urine
09/25/24 09/25/24
13:09 13:10
Urine Nitrite (Reflex) Positive A Cancelled
Leukocyte Esterase Rfl 2+ A Cancelled
Ur Squamous Epith Cells 11-15
Microbiology Results
09/25/24 13:09 Urine Culture - Final
Urine NO GROWTH
09/25/24 11:51 Influenza Types A & B (DEONDRE) - Final
Nasal Swab Negative for Influenza A & B, NAAT
Negative results must be combined with clinical observations
and patient history.
Nucleic Acid Amplification test (NAAT)performed on the
[employer] platform.
Therapeutic Drug Monitoring
Random Vancomycin 15.0 ug/ml 09/26/24 06:12
[2024-09-26 09:30] LABS: Glycohemoglobin (HgbA1c) 7.4 % (4.0-5.6)
[2024-09-26 09:38] LABS: % Basophils 0.2 % (0-2); % Eosinophils 0.2 % (0-6); % Immature Granulocytes 0.7 % (0-0.5); % Lymphocytes 11.8 % (20.5-51.1); % Monocytes 6.9 % (1.7-9.3); % Neutrophils 80.2 % (42.2-75.2); Absolute Lymphocytes 0.5 10^3/uL (1.2-3.4); Absolute Monocytes 0.3 10^3/uL (0.1-0.6); Absolute Neutrophils 3.4 10^3/uL (1.4-6.5); Nucleated Red Blood Cells % 0 % (-)
--- NOTE | 2024-09-26 09:43 | W.PN.HOSP.TC ---
Today's Communication/Plan
-
see PN
Assessment / Plan
Assessment / Plan
69yo M with PMHx of cholecystectomy, large B-cell lymphoma in remission for 5 years, GERD, DM, Hx of prostate CA s/p resection sent by oncologist due to abnormal bloodwork. managed for possible TLS on the recurrence of lymphoma. Uric acid improved
on Rasburicase, s/p lyumph node biopsy by [facility] on 09/25/24, pending chemo port placement by [facility]. With direct bilirubinemia - pending MRCP
A/P:
#ELIGIO concern for TLS due to large B-cell lymphoma recurrence
Ca, Potassium WNL
check Phosphorus, Uric acid
Oncology for advise on rasburicase
IVF
Nephrology
Check UA, UOsm, [place], UCr
Pedraza and follow I&O
follow Cr
#Fevers with possible UTI cannot exclude cholangitis
most likely CA induced
Bcx NTD
Ucx pending
check COVID-19 and Influenza PCR
Zosyn
#Abdominal distension
hepatosplenomegally
#Bilirubinemia, direct
#Elevated AST
Abd MRI
GI consult
#Elevated alk.phos
since s/p cholecystectomy - most likely 2/2 lymphoma
#Pancytopenia
follow CBC and transfuse as needed
#DM type 2 with unspecified complications
Insulin SS, DM diet, Accuchecks
hold oral hypoglycemics
#GERD
cont PPI
#L adrenal mass stable since 2021
#Chronic non-incarcerated asymptomatic umbilical hernia
[facility] evaluated - cont monitr
#Constipation
laxatives
DVT ppx SCDs
Full code
I have spent at least 58min reviewing chart, test results, communication with consultants, family and providing direct patient care
Anticipated Discharge: > 48 hours
Subjective/Interval History
-
Date of Service: September 26, 2024
Objective Data
-
Labs:
Laboratory Results
09/26/24 09/26/24 09/26/24
06:12 06:14 08:06
WBC 4.2 L
Hgb 8.0 L
Hct 23.5 L
Plt Count 107 L
PT 15.5 H
INR 1.18
Sodium 138 Cancelled
Potassium 4.8 Cancelled
Chloride 107 Cancelled
Carbon Dioxide 22 Cancelled
BUN 77 H Cancelled
Creatinine 3.8 H Cancelled
Glucose 106 H Cancelled
Calcium 8.7 Cancelled
Total Bilirubin 7.6 H Cancelled
AST 75 H Cancelled
ALT 31 Cancelled
Alkaline Phosphatase 270 H Cancelled
Vital Signs:
Vital Signs
Temp Pulse Resp BP Pulse Ox
98.3 F 112 17 127/63 95
09/26/24 07:35 09/26/24 07:35 09/26/24 07:35 09/26/24 07:35 09/26/24 07:35
I&O
09/25/24 09/26/24 09/27/24
06:59 06:59 06:59
Output Total 200 / 200
Balance -200 / -200
Review of Systems
-
History Source: Patient
All other systems: Reviewed and negative
Physical Exam
-
General: No Apparent Distress
HEENT: Normocephalic
Respiratory: Clear to Auscultation
Cardiac: Regular Rhythm
GI: Soft, Nontender and Distended
Genito-urinary: No Costovertebral Tender
Musculoskeletal: No Clubbing, No Cyanosis and No Edema
Neuro: Awake
Psych: Calm
[2024-09-26] MEDS: ZYLOPRIM 100 MG PO (09:52)
--- NOTE | 2024-09-26 10:16 | W.PN.GI.CBS2 ---
Today's Communication / Plan
-
MRI/MRCP today
Assessment / Plan
-
Alex Lopez is a 69-year-old gentleman with past medical history of previously treated diffuse large B-cell lymphoma in 2019, Armstrong's esophagus with high-grade dysplasia s/p tx with RFA (follows with Dr. Elizabeth), Prostate Ca s/p radical
prostatectomy, hx cholecystectomy who presents with B symptoms concerning for recurrence of DLBL. PET CT scan showed b/l axillary LN, mediastinal LN and b/l hilar LN with increased FDG uptake suggestive for relapse. He was seen by oncology on 09/25,
Hgb 9.3, Plt 108, BUN 60/Cr. 2.47, Tbili 5.1, Alk phos 298, AST 78, ALT 34, LDH 590, overall clinical picture concerning for tumor lysis syndrome. Repeat labs upon arrival: WBC 4.4, Hgb 8.9, MCV 78.5, Plt 101, PT 15.2, INR 1.15, Na 137, K 4.1, Cl
102, CO2 22, BUN 70, Cr. 3.0, uric acid 9.2, Tbili 7, Dbili 6, AST 90, Alk phos 353, CK <20, Total protein 5, Albumin 2.6.
#Elevated Liver Enzymes
#Hepatosplenomegaly
#Lymphadenopathy
#Pancytopenia
#ELIGIO
Direct hyperbiliurbinemia with Tbili 7/bili 6, Elevated alk phos 353 and AST 90. Given overall clinical picture, could represent infiltrative disease
-significant lymphadenopathy on recent PET-CT
-s/p IR LN core biopsy 09/25, results pending
-recommend hepatitis serologies, ferritin, SPEP, IgG4 subclasses
-MRI/MRCP today
-direct bili not consistent with hemolysis
Subjective
Subjective
Date of Service: September 26, 2024
Patient seen in follow-up, no overnight events. He is currently being managed empirically for tumor lysis syndrome with rasburicase, urice acid has improved. He underwent lymph node biopsy yesterday, results pending. He also has plans to have port
placed by gen surgery. MRI/MRCP pending due to direct hyperbilirubinemia
Objective
Data Reviewed
Laboratory Data:
Laboratory Results
09/26/24 06:14
09/26/24 08:06
Laboratory Results
PT 15.5 Sec (11.4-14.6) H 09/26/24 06:12
INR 1.18 09/26/24 06:12
APTT 37.5 Sec (23.4-35.0) H 09/25/24 13:25
Phosphorus Cancelled 09/26/24 08:06
Magnesium 1.9 mg/dl (1.6-2.3) 09/26/24 06:12
Total Bilirubin Cancelled 09/26/24 08:06
AST Cancelled 09/26/24 08:06
ALT Cancelled 09/26/24 08:06
Alkaline Phosphatase Cancelled 09/26/24 08:06
Vital Signs and I&O:
Vital Signs
Temp Pulse Resp BP Pulse Ox
98.3 F 112 17 127/63 95
09/26/24 07:35 09/26/24 07:35 09/26/24 07:35 09/26/24 07:35 09/26/24 07:35
I&O
09/25/24 09/26/24 09/27/24
06:59 06:59 06:59
Output Total 200 / 200
Balance -200 / -200
Physical Exam
Physical Exam
HEENT: Anicteric (scleral icterus)
GI: Soft, Distended, Hepatomegaly and Splenomegaly
+jaundice
[2024-09-26 11:22] LABS: Glucose - Point of Care 119 mg/dl (70-99)
[2024-09-26] MEDS: VANCOCIN HCL 500 MG 100 IV (11:25)
--- NOTE | 2024-09-26 11:51 | W.PN.UPDATE ---
Update Note
Progress Note Update
Pt seen and evaluated at bedside. Feeling better, denies urinary symptoms. UCx negative, BCx NGTD, afebrile since admit. Plt 107K. Discussed excisional LN biopsy right axilla, possibly left as well as right side port-a-cath placement. Advised there
is holley risk if he has bacteremia not yet discovered this could compromise a port. He prefers not to wait and wants to move expeditiously to initiate treatment. Added on to today's schedule for LN bx and port placement.
--- NOTE | 2024-09-26 14:04 | W.PN.NEPH.PH ---
Today's Communication / Plan
-
IV fluids
Assessment/Plan
-
Impression:
Acute renal failure (3.0)
History of prior lymphoma with suspicion for recurrence given B symptoms
Pancytopenia
Armstrong's esophagus
Hypoalbuminemia
Long-term Diabetes
Plan:
ELIGIO:
CT of abdomen no obstructive renal component
-Will administer IV fluids NSS 200cc/hr
-With hold metformin in setting of acute renal failure
-Check urine sodium urine creatinine urinalysis and urine protein to creatinine ratio
-Must be hypervigilant with phosphate, calcium, and potassium in setting of tumor lysis syndrome
Creatinine continues to increase.
Status post rasburicase.
Discussed with the family at bedside in detail.
He is oliguric.
Continue IV fluid
No acute need for renal replacement therapy but certainly with worsening renal function there is that possibility as the patient is aware
-
-
Date of Service: September 26, 2024
CC / HPI / ROS
-
Chief Complaint:
Acute kidney
History of Present Illness:
recurrent DLBCL, initially tx with RCHOP 2020. s/p IR Left LN core bx 09/25
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
Review of Systems:.
No chest pain or shortness of breath
Labs
-
Labs:
WBC 4.2 10^3/uL (4.8-10.8) L 09/26/24 06:14
RBC 3.07 10^6/uL (4.70-6.10) L 09/26/24 06:14
Hgb 8.0 g/dL (13.0-18.0) L 09/26/24 06:14
Hct 23.5 % (39.0-52.0) L 09/26/24 06:14
Plt Count 107 10^3/uL (130-400) L 09/26/24 06:14
Sodium Cancelled 09/26/24 08:06
Potassium Cancelled 09/26/24 08:06
Chloride Cancelled 09/26/24 08:06
Carbon Dioxide Cancelled 09/26/24 08:06
BUN Cancelled 09/26/24 08:06
Creatinine Cancelled 09/26/24 08:06
eGFR Cancelled 09/26/24 08:06
Glucose Cancelled 09/26/24 08:06
Calcium Cancelled 09/26/24 08:06
Phosphorus Cancelled 09/26/24 08:06
Albumin Cancelled 09/26/24 08:06
Physical Exam
-
Vital Signs:
Vital Signs
Temp Pulse Resp BP Pulse Ox
98.3 F 112 17 127/63 95
09/26/24 07:35 09/26/24 07:35 09/26/24 07:35 09/26/24 07:35 09/26/24 07:35
Respiratory:: Bilateral: Coarse
Lung Excursion:: Normal
Abdomen:: Distended
Bowel Sounds:: Normal
Extremity Edema:: +2: Bilateral:
Pedraza Catheter: Yes
[2024-09-26 14:31] LABS: Glucose - Point of Care 120 mg/dl (70-99)
[2024-09-26 18:53] LABS: B.E. - POC -7.3 mmol/L; Glucose - POC 130 mg/dl (70-99); HCO3 - POC 22 mmol/L (21-28); Hematocrit - POC 30 % PCV (42-52); Hemodilution- POC Yes; Hemoglobin Calculated - POC 10.2; Ionized Calcium - POC 1.17 mmol/L (1.15-1.33); Lactate - POC 4.28 mmol/L (0.36-0.75); O2 Saturation %Calculated-POC 79.9 % (94-98); PCO2 - POC 66 mmHg (35-48); PO2 - POC 59 mmHg (83-108); Potassium - POC 5.7 mmol/L (3.5-5.1); Sodium - POC 142 mmol/L (136-145); Specimen Type - POC Arterial; pH - POC 7.13 (7.35-7.45)
[2024-09-26 19:06] LABS: B.E. - POC -6.7 mmol/L; Glucose - POC 134 mg/dl (70-99); HCO3 - POC 23 mmol/L (21-28); Hematocrit - POC 28 % PCV (42-52); Hemodilution- POC Yes; Hemoglobin Calculated - POC 9.5; Ionized Calcium - POC 1.11 mmol/L (1.15-1.33); Lactate - POC 3.99 mmol/L (0.36-0.75); O2 Saturation %Calculated-POC 93.2 % (94-98); PCO2 - POC 67 mmHg (35-48); PO2 - POC 90 mmHg (83-108); Potassium - POC 5.4 mmol/L (3.5-5.1); Sodium - POC 140 mmol/L (136-145); Specimen Type - POC Arterial; pH - POC 7.14 (7.35-7.45)
[2024-09-26 19:49] LABS: B.E. -9.1 mmol/L; HCO3 17.6 mmol/L (21-28); O2 Saturation % 99.7 % (94-98); PCO2 41 mmHg (35-48); PO2 175 mmHg (83-108); pH 7.24 (7.35-7.45)
[2024-09-26] MEDS: ZOSYN IV (19:49)
[2024-09-26] MEDS: SUBLIMAZE 50 MCG IV (19:51)
--- NOTE | 2024-09-26 19:59 | W.IMMPOSTOP ---
Surgical Immed Post Op Note
-
Primary Surgeon: Elise
Assisting: Micah LOVETT
Pre-op Diagnosis: NHL
Post-op Diagnosis: Same
Procedure Performed: Right internal jugular port-a-cath placement, right axillary lymph node dissection
Anesthesia Type: LMA
Specimen / Cultures: Right axillary lymph nodes
Estimated Blood Loss: 25cc
Complications: None immediate
Operative Findings: Several nodes harvested, catheter tip in low position
--- NOTE | 2024-09-26 20:02 | OR.RPT ---
Operative Report
Operative Report
Primary Surgeon: Elise
Assisting: Micah LOVETT
Pre-op Diagnosis: NHL
Post-op Diagnosis: Same
Procedure Performed: Right internal jugular port-a-cath placement, right axillary lymph node dissection
Anesthesia Type: LMA
Specimen / Cultures: Right axillary lymph nodes
Estimated Blood Loss: 25cc
Complications: None immediate
Operative Findings: Several nodes harvested, catheter tip in low position
Date of Surgery: 09/26/24
Indications: This 69M developed recurrent Non-hodgkin's lymphoma and tumor lysis syndrome. He was admitted to the hospital with acute kidney injury and elevated liver function studies. He had bilateral axillary lymphadenopathy that was PET avid on
recent scan. Plan was for port-a-cath placement and right axillary lymph node biopsy.
Description of procedure: The patient was placed on the operating table in the supine position. LMA anesthesia was induced. A time-out was completed verifying correct patient, procedure, site, positioning, and special equipment prior to beginning
this procedure. The right axilla was prepped and draped in the usual sterile fashion. An incision was made with a #15 blade and carried down to the subcutaneous layer with electrocautery. Several nodes were identified and removed. Hemostasis was
obtained with electrocautery. The wound was irrigated with sterile saline and closed in layers with 3-0 vicryl and 4-0 monocryl sutures. Topical skin glue was applied.
The drapes were removed and the patient was then prepped and draped for right internal jugular port-a-cath placement. Ultrasound guidance was used to identify the internal jugular vein and a finder needle was inserted into the vein under ultrasound
guidance with good return fo venous blood. A wire was advanced into the vein and the needle was withdrawn. Fluoroscopy was used to identify the aortocaval junction. A romero was made in the skin at the wire entrance site and the dilator was placed
over the wire while maintaining control of the wire. A pocket was made over the right chest by incising the skin with a #15 blade and bluntly dissecting the subcutaneous space. The catheter was measured under fluoroscopy to the approximate location
of the aortocaval junction and the catheter was trimmed to size. The catheter was was attached to the port and flushed with heparinized saline. The catheter was tunnelled under the skin and brought out through the romero adjacent to the wire and then
advanced into the dilator sheath as the sheath was broken away. Ultimately the catheter sat nicely in the subcutaneous space. A small skin bleeder at the romero site was controlled with a 3-0 vicryl suture. Fluoroscopy was used to confirm proper
position of the catheter. The port was then secured to the fascia with 3-0 prolene suture at 3 points, tucking it into the pocket. The pocket was closed with 3-0 vicryl and 4-0 monocryl suture in layers and topical skin glue was applied. The
catheter was then flushed again with heparinized saline.
Post-procedure the patient was not maintaining his airway and was intubated and brought to the ICU.
[2024-09-26 20:03] LABS: Hematocrit 24.4 % (39.0-52.0); Mean Corp Hgb Conc. 32.8 g/dL (33.0-37.0); Mean Corpuscular Hgb 26.1 pg (27.0-31.0); Mean Corpuscular Volume 79.7 fL (80.0-94.0); Red Blood Cell Count 3.06 10^6/uL (4.70-6.10); Red Cell Dist. Width 15.7 % (11.5-14.5); White Blood Cell Count 5.4 10^3/uL (4.8-10.8)
[2024-09-26 20:06] LABS: INR 1.33; PT 16.8 Sec (11.4-14.6)
[2024-09-26 20:07] LABS: APTT 37.5 Sec (23.4-35.0)
[2024-09-26 20:08] LABS: Ammonia 14 umol/L (9-30)
[2024-09-26 20:15] LABS: ALT (SGPT) 31 U/L (0-50); AST (SGOT) 88 U/L (17-59); Albumin 2.4 g/dl (3.5-5.0); Alkaline Phosphatase 256 U/L (38-126); Blood Urea Nitrogen 84 mg/dl (9-20); Calcium 8.3 mg/dl (8.4-10.2); Carbon Dioxide 18 mmol/L (22-30); Chloride 105 mmol/L (98-107); Direct Bilirubin 7.9 mg/dl (0.0-0.4); Estimated Creatinine Clearance 16 ml/min; Glucose 134 mg/dl (70-99); Magnesium 2.1 mg/dl (1.6-2.3); Phosphorus 8.3 mg/dl (2.5-4.5); Potassium 5.7 mmol/L (3.5-5.1); Sodium 138 mmol/L (135-145); Total Bilirubin 8.5 mg/dl (0.2-1.3); Total Protein 5.1 g/dl (6.3-8.2)
[2024-09-26 20:24] LABS: Mean Platelet Volume 10 fL (7.4-10.4); Platelet Count 91 10^3/uL (130-400)
[2024-09-26] MEDS: PRECEDEX 100 IV (20:30)
[2024-09-26] MEDS: LASIX 80 MG IV (20:34)
[2024-09-26] MEDS: DEXTROSE 50% SYRINGE 25 GRAMS IV (20:44)
[2024-09-26] MEDS: NOVOLIN R 10 UNITS IV (20:44)
[2024-09-26 20:45] LABS: Glucose - Point of Care 156 mg/dl (70-99)
[2024-09-26 20:51] LABS: Reticulocyte Count 0.5 % (0.4-2.8)
--- NOTE | 2024-09-26 20:53 | W.PN.UPDATE ---
Update Note
Progress Note Update
09/26/24
1929- Received patient to the ICU post operative intubated. Patient was intubated post operatively 15-20 minutes after LMA was removed and was not protecting his airway in addition to hypercapnic state with metabolic acidosis. Initially patient
saturation 80s%, FIO2 was increased to 100% and peep was increased to 6. PIP [address] Olivares, surgeon, at bedside requested full set of labs CBC, BMP, mag, phos, PT/PTT/INR, LFTs, ABG; CT chest r/o tamponade/effusion, EKG, and
consultation of toy trains and accessories salesperson Dr. Milian. Patient became hypotensive albumin was given and levophed gtt was initiated. Possibly hypotensive from hypovolemia vs propofol sedation. Sedation IV initiated with Precedex gtt and prn fentanyl boluses. IVF
fluids held until review of labs/creatinine ELIGIO status and discussion with valve grinder.
Case reviewed with Dr. Milian, toy trains and accessories salesperson, recommendations received: obtain labs including lactic, uric acid, and EKG. Labs noted hyperkalemia K 5.7, hyperphosphatemia 8.3. Differential including Tumor Lysis Syndrome vs Acute Renal Failure
compounded with reduced anesthesia clearance given for the procedure. Creatinine now worse 4.8. Dr. Wyatt, valve grinder, updated on most recent lab values and recommendations received: given 80mg IV lasix, no IVFs, temporize K for goal less
than 6.0 and give insulin IV per hyperkalemia protocol, ultimately patient will require dialysis due to decreased urine output and worsening creatinine with acute renal failure. Family at the bedside and updated, all questions answered.
Ctscan of the chest reviewed by Dr. Milian and Dr. Olivares, port catheter inferior and will be taken back to the OR for adjustment. Dr. Olivares at bedside to speak with family ( Nelida and daughter) obtained consent for OR and patient transported
back to the OR.
[2024-09-26] MEDS: FLEXBUMIN 100 IV (20:54)
[2024-09-26 21:02] LABS: LDH 790 U/L (120-246)
--- NOTE | 2024-09-26 21:17 | W.PN.UPDATE ---
Update Note
Progress Note Update
Pt anuric and hypotensive post-op. EKG unchanged. Severe electrolyte abnormalities noted. Respiratory acidosis noted. Stat CT chest obtained to rule out PE, cardiac tamponade, effusions. No evidence of these but catheter tip noted to be in proximal
right atrium. Plan is to RTOR to reposition the catheter. This is unlikely to be causing his current acute issues but nevertheless it needs to be repositioned for future chemotherapy and it is prudent to do this now while he remains intubated to
avoid additional anesthesia going forward. Suspect renal insufficiency resulting from tumor lysis syndrome is the most significant contributing factor to his current presentation. He will likely need hemodialysis for this. D/w CT surgery. D/w
communication equipment mechanic. D/w and daughter at bedside.
[2024-09-26 21:29] LABS: HCO3 16.2 mmol/L (21-28); O2 Saturation % 99.7 % (94-98); PCO2 36 mmHg (35-48); PO2 231 mmHg (83-108); pH 7.26 (7.35-7.45)
--- NOTE | 2024-09-26 22:38 | PTCARENOTE ---
Pt arrived to ICU room 3370 as a direct-back from the OR at 191. Pt intubated, #7.0 ETT 22cm at lip, initial vent settings AC 18/500/100/5, PEEP increased shortly thereafter to 6. Pt with left radial arterial line, connected to monitor and zeroed
and pt found to be hypotensive with systolic BP in the 60s. Levophed started, see med titration flowsheet/EMAR for details. Labs obtained/sent. STAT CT chest ordered and pt taken down around 1999, premedicated with bolus dose of Fentanyl beforehand
(see EMAR). After arriving back to room, pt started on Precedex drip. Pt's daughter and in room and were updated by both ICU HOSPICE AIDE Sylvia Palacios and Dr. Olivares. K+ came back elevated, insulin/D50 administered as well as 80mg IV Lasix, see EMAR.
Based on CT results pt needed to return to OR for repositioning of port. Transported to OR at approx 2130.
Pt has been able to open eyes spontaneously, nod/shake head appropriately to yes/no questions and follow simple commands. ST on monitor, 110s. Pedraza in place, urine output has been poor.
--- NOTE | 2024-09-26 22:47 | OR.RPT ---
Operative Report
Operative Report
Primary Surgeon: Elise
Pre-op Diagnosis: Malpositioned central venous catheter
Post-op Diagnosis: Same
Procedure Performed: Reposition central venous catheter.
Anesthesia Type: GETA
Specimen / Cultures: None
Estimated Blood Loss: 2cc
Complications: None immediate
Operative Findings: Neck and port incisions opened. Catheter withdrawn and fluoroscopy confirms catheter tip at cavo-atrial junction. Catheter trimmed and port replaced, flushed with heparinized saline.
Date of Surgery: 09/26/24
Indications: This 69M developed recurrent Non-hodgkin's lymphoma and tumor lysis syndrome. He was admitted to the hospital with acute kidney injury and elevated liver function studies. He had bilateral axillary lymphadenopathy that was PET avid on
recent scan. Port-a-cath was placed and catheter tip noted to be in proximal right atrium. Plan was for catheter repositioning in the operating room.
Description of procedure: The patient was placed on the operating table in the supine position. He was intubated prior to arrival. A time-out was completed verifying correct patient, procedure, site, positioning, and special equipment prior to
beginning this procedure. The patient was then prepped and draped for right internal jugular port-a-cath repositioning. The neck incision as opened and the catheter was identified. It was withdrawn several cm. Fluoroscopy was used to confirm proper
position of the tip. The pocket was opened and the port was freed from its stay sutures. The port was pulled caudad to take slack out of the catheter line. Fluoroscopy was used to confirm proper position once again. The old port was then removed and
a new port was secured onto the catheter. The port was then secured to the fascia with 3-0 prolene suture at 3 points, tucking it into the pocket. The pocket was closed with 3-0 vicryl and 4-0 monocryl suture in layers and topical skin glue was
applied. The catheter was then flushed again with heparinized saline.
Post-procedure the patient was not maintaining his airway and was intubated and brought to the ICU.
--- NOTE | 2024-09-26 23:04 | PTCARENOTE ---
Addendum entered by Deidra Jaime RN 09/26/24 23:09:
Unable to do restraint documentation at 2200 due to pt being in OR
Original Note:
Vital signs from 2130 to 2300 limited due to pt in OR and was not on the ICU monitor at that time.
[2024-09-26 23:25] LABS: Glucose - Point of Care 195 mg/dl (70-99)
[2024-09-26] MEDS: LEVOPHED 250 IV (23:32)
[2024-09-27] MEDS: PITRESSIN 100 IV ×3 (00:17→19:11)
[2024-09-27 00:28] LABS: B.E. -7.9 mmol/L; HCO3 17.6 mmol/L (21-28); O2 Saturation % 99.8 % (94-98); PCO2 35 mmHg (35-48); PO2 166 mmHg (83-108); pH 7.31 (7.35-7.45)
--- NOTE | 2024-09-27 00:39 | PTCARENOTE ---
"Pt returned from OR at 2315. Received back on Levophed at 12mcg/min (where he was when he left), and Precedex at 0.3mcg/kg/min (increased from previous rate of 0.2). Levophed titrated up in an attempt to keep MAP >65, up to 22mcg/min, discussed with "Papi"Sylvia RODAS and Vasopressin added (Phenylephrine also ordered on standby). CHG cloth bath done and linens/gown/monitor electrode patches changed. No changes in physical assessment. FiO2 turned down from 100% to 70%. "
[2024-09-27 00:47] LABS: Blood Urea Nitrogen 92 mg/dl (9-20); Carbon Dioxide 17 mmol/L (22-30); Chloride 105 mmol/L (98-107); Estimated Creatinine Clearance 16 ml/min; Glucose 217 mg/dl (70-99); Potassium 5.9 mmol/L (3.5-5.1); Sodium 138 mmol/L (135-145)
[2024-09-27] MEDS: SODIUM BICARBONATE 50 MEQ IV (01:17)
[2024-09-27] MEDS: LEVOPHED 250 IV ×4 (02:09→15:13)
[2024-09-27] MEDS: NOVOLIN R 5 UNITS IV (02:12)
[2024-09-27 02:14] LABS: Glucose - Point of Care 251 mg/dl (70-99)
[2024-09-27] MEDS: NOVOLIN R INSULIN INFUSION 100 IV ×2 (02:14→23:23)
--- NOTE | 2024-09-27 02:21 | VATNOTE ---
PICC ORDER NOTED AND DEFERRED AT THIS TIME AFTER CONSULT WITH SALAS RODAS.ANTICIPATING NEED FOR TRIALYSIS CATHETER IN AM AND OPTION TO USE NEWLY INSERTED R SUBQ PRT AFTER PT SEEN BY SURGERY IN AM. ADDITIONAL IV ACCESS ESTABLISHED
DOCUMENTED.VAT TO FOLLOW.
[2024-09-27] MEDS: SUBLIMAZE 50 MCG IV ×4 (03:04→12:50)
[2024-09-27] MEDS: ZOSYN 50 IV ×5 (03:05→23:25)
[2024-09-27 03:18] LABS: Glucose - Point of Care 229 mg/dl (70-99)
[2024-09-27 03:46] VITALS: BMI 33.8
[2024-09-27 04:13] LABS: Ionized Calcium 0.99 mMOL/L (1.15-1.33)
[2024-09-27 04:19] LABS: Hematocrit 22.2 % (39.0-52.0); Hemoglobin 7.1 g/dL (13.0-18.0); Mean Corpuscular Hgb 25.4 pg (27.0-31.0); Mean Corpuscular Volume 79.3 fL (80.0-94.0); Mean Platelet Volume 9.6 fL (7.4-10.4); Platelet Count 102 10^3/uL (130-400); Red Cell Dist. Width 15.5 % (11.5-14.5); White Blood Cell Count 5.5 10^3/uL (4.8-10.8)
[2024-09-27 04:41] LABS: Glucose - Point of Care 203 mg/dl (70-99)
[2024-09-27 04:52] LABS: Vancomycin Random 14.4 ug/ml
[2024-09-27 04:55] LABS: ALT (SGPT) 27 U/L (0-50); AST (SGOT) 84 U/L (17-59); Albumin 2.4 g/dl (3.5-5.0); Alkaline Phosphatase 201 U/L (38-126); Blood Urea Nitrogen 94 mg/dl (9-20); Calcium 7.9 mg/dl (8.4-10.2); Carbon Dioxide 22 mmol/L (22-30); Chloride 104 mmol/L (98-107); Direct Bilirubin 7.9 mg/dl (0.0-0.4); Estimated Creatinine Clearance 16 ml/min; Glucose 211 mg/dl (70-99); LDH 843 U/L (120-246); Magnesium 2.2 mg/dl (1.6-2.3); Phosphorus 6.1 mg/dl (2.5-4.5); Potassium 5.2 mmol/L (3.5-5.1); Sodium 139 mmol/L (135-145); Total Bilirubin 8.6 mg/dl (0.2-1.3); Total Protein 4.7 g/dl (6.3-8.2); Uric Acid 6.7 mg/dl (3.5-8.5); eGFR 11.81
[2024-09-27 05:02] LABS: Troponin I 0.097 ng/ml
[2024-09-27 05:38] LABS: Glucose - Point of Care 170 mg/dl (70-99)
--- NOTE | 2024-09-27 05:43 | PTCARENOTE ---
Assessment unchanged. Pt remains on Levophed, Vasopressin, and Precedex infusions. Insulin added per Critical Care Glycemic Protocol. See med titration flowsheets for full details on med dosages. FiO2 weaned to 60%, SpO2 100%. SR 90s on monitor. Pt
is diaphoretic and cool/clammy at this time, which he has been throughout the shift. Still awakens to voice/light tactile stimuli and nods/shakes head appropriately and follows simple commands. OG tube placed at 65cm, currently to JAZMIN, CXR done
this AM.
[2024-09-27 06:35] LABS: Glucose - Point of Care 159 mg/dl (70-99)
[2024-09-27 07:39] LABS: Glucose - Point of Care 138 mg/dl (70-99)
[2024-09-27] MEDS: NOVOLOG FLEXPEN SC ×3 (07:39→17:29)
[2024-09-27] MEDS: NSS (PRESERVATIVE FREE) 10 ML IV ×2 (07:39→19:46)
[2024-09-27] MEDS: PROTONIX IV 40 MG IV ×2 (07:39→19:46)
--- NOTE | 2024-09-27 07:43 | CON.INTV ---
Consultation
Consultation Request
Date/Time Consultation Requested: 09/26/2024
Date/Time Consultation Performed: 09/27/2024
Requesting Provider: Bubba Olivares
Performing Provider: Martin Kim
Reason for Consultation: Shock
Medical History
-
Chief Complaint: Hypotension
History of Present Illness:
Patient is a 69-year-old gentleman with past medical history of cholecystectomy, large B-cell lymphoma in remission for about 5 years, diabetes, s/p surgery for prostate cancer in remission, who was sent by oncologist office for abnormal workup and
was admitted on 09/25. Patient family reports that over the last few months, he had started to develop night sweats which was concerning for return of his prior lymphoma. He also developed worsening abdominal distention couple of weeks ago along
with dark urine and intermittent vomiting. He was subsequently seen by oncology service and was sent to the emergency room for further evaluation. Lab work initially showed elevated bilirubin, acute kidney injury as well as pancytopenia.
09/26, patient had right axillary lymph node dissection as well as port placement for future chemotherapy. Post surgery he had to be reintubated due to respiratory failure and was subsequently transferred to ICU. Patient since have developed
worsening oliguric renal failure, shock requiring pressor support. Nuts And Bolts Assembler consultation was requested for further management.
Additional Past Medical History:
see HPI
Past Surgical History: Reports Other
Additional Past Surgical History:
See HPI
Social History
Tobacco: Other (occasional cigars)
Alcohol: Occasional
Family History
Family History: Not pertinent
Allergies / Home Medications
Allergies / Home Medications
Allergies
Allergy/AdvReac Type Severity Reaction Status Date / Time
No Known Allergies Allergy Verified 09/25/24 10:10
Home Medications
�Medication �Instructions �Recorded �Confirmed �Last Taken �Type
metformin 1,000 mg tablet 1,000 mg PO BID Diabetes 08/20/18 09/25/24 09/24/24 History
pantoprazole 40 mg tablet,delayed 40 mg PO DAILY GERD 08/26/18 09/25/24 09/24/24 History
release
glipizide 5 mg tablet 5 mg PO BID Diabetes 09/25/24 09/25/24 09/24/24 History
pantoprazole 40 mg tablet,delayed 40 mg PO QPM PRN acid 09/25/24 09/25/24 Unknown History
release reflux/heartburn
Review of Systems
Vitals / Labs / Diagnostic Testing
Vital Signs
Temp Pulse Resp BP Pulse Ox
98.2 F 90 22 129/69 100
09/27/24 03:20 09/27/24 06:00 09/27/24 06:00 09/26/24 22:58 09/27/24 06:00
Lab Data
09/27/24 04:05
09/27/24 04:05
Laboratory Results
09/26/24 09/26/24 09/26/24
19:39 19:40 21:22
PT 16.8 H
INR 1.33
APTT 37.5 H
pH 7.24 L 7.26 L
pCO2 41 36
pO2 175 H 231 H
HCO3 17.6 L 16.2 L
O2 Delivery Level
09/27/24
00:12
PT
INR
APTT
pH 7.31 L
pCO2 35
pO2 166 H
HCO3 17.6 L
O2 Delivery Level
Microbiology
09/25/24 11:51 Blood/Venous Blood Culture - Preliminary
No Growth in 24 hours- Final report to follow
09/25/24 11:51 Blood/Venous Blood Culture - Preliminary
No Growth in 24 hours- Final report to follow
09/25/24 13:09 Urine Urine Culture - Final
NO GROWTH
09/25/24 11:51 Nasal Swab Influenza Types A & B (DEONDRE) - Final
Negative for Influenza A & B, NAAT
Negative results must be combined with clinical observations
and patient history.
Nucleic Acid Amplification test (NAAT)performed on the
[employer] NOW platform.
Diagnostic Testing:
Physical Exam
-
HEENT: Normocephalic
Cardiovascular: Regular Rhythm
Respiratory: Clear and Non-Labored Respirations
GI: Soft and Non Distended
Neurology: Other (Sedated)
Skin: Warm
Assessment
-
#1. Shock, septic vs related to tumor lysis syndrome
-Currently on Levophed at 14 and vasopressin at 0.03. Lactate 2.8 at 11:53 am
-Follow-up on blood cultures
-Continue broad-spectrum antibiotic vancomycin and Zosyn
#2. Bibasilar pneumonia. Family reports that patient has been coughing for last couple of weeks and had an x-ray as an outpatient which was negative.
-Follow-up on blood cultures
-Send tracheal aspirate
-Continue broad-spectrum antibiotics
-Continue mechanical ventilation, 500/18/60%/6
-Check MRSA screen, Legionella and strep pneumo antigen
-Chest x-ray in a.m.
#3. ELIGIO with hyperkalemia. Suspect this is sequelae of tumor lysis syndrome. S/p rasburicase. Currently on 2 pressors and an uric.
-Nephrology service on case
-Trialysis catheter placed
-Start CRRT, consent obtained for dialysis access
#4. DM with hyperglycemia and hyperkalemia.
-Insulin infusion
#5. 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 Patient has acute kidney injury, uric acid, shock and respiratory failure.
-S/p rasburicase
-Currently mechanically ventilated, on 2 pressors for shock
-Initiating CRRT for renal failure
-Pulse dose IV steroids, Dexamethasone 40 mg IV, started per oncology. IV Cytoxan being considered.
#6. Intra and extrahepatic bile duct dilation, felt to be related to extrinsic compression from periportal lymphadenopathy.
-GI service on case
-Continue to trend LFTs, bilirubin
DVT prophylaxis. Heparin s.c.
GI Prophylaxis. IV protonix
Prognosis is poor. Patient is in multiorgan failure in the setting of severe tumor lysis syndrome.
Critical Care time 70 mins -- The patient is admitted for acute critical illness for the treatment of vital organ failure and/or prevention of further life-threatening conditions. Total care includes time spent in review of history, physical exam,
medications, hemodynamic/ventilator parameters, laboratory data, imaging and discussion with house staff, pharmacy, respiratory therapy, bindery operator, and nursing.
[2024-09-27] MEDS: PRECEDEX 100 IV ×2 (08:17→23:22)
[2024-09-27 08:46] LABS: Glucose - Point of Care 145 mg/dl (70-99)
[2024-09-27] MEDS: HEPARIN 5000 UNITS SC ×2 (08:46→19:47)
[2024-09-27] MEDS: ZYLOPRIM 100 MG PO (09:14)
--- NOTE | 2024-09-27 09:22 | PTCARENOTE ---
Port accessed by IV team. IV tubing changed, pressors now through central line.
Pedraza exchanged for urometer for CRRT.
Unable to get sputum specimen d/t no secretions via ETT.
--- NOTE | 2024-09-27 10:41 | W.PN.HOSP.TC ---
Today's Communication/Plan
-
cont abx
[facility]
Oncology for possible steroids - discussing concern for autoimmune hemolysis too
CRRT to be initiated
Assessment / Plan
Assessment / Plan
69yo M with PMHx of cholecystectomy, large B-cell lymphoma in remission for 5 years, GERD, DM, Hx of prostate CA s/p resection sent by oncologist due to abnormal bloodwork. managed for possible TLS on the recurrence of lymphoma. Uric acid improved
on Rasburicase, s/p lyumph node biopsy by [facility] on 09/25/24, pending chemo port placement by [facility]. With direct bilirubinemia MRCP done that showed compression of the bile duct by lymphadenopathy. Had also Right internal jugular port-a-cath placement,
right axillary lymph node dissection on 09/26/24 and could not maintain his airways after procedure, so remained intubated. Concern for new pneumonia
A/P:
#bilateral lower lobe pneumonia with acute hypoxic respiratory failure and septic shock
#Fevers with possible UTI cannot exclude cholangitis
Vent, sedation and pressor mgmt as per accounting administrative assistant
Bcx NTD
Ucx no growth
COVID-19 and Influenza PCR neg
Sputum Cx
Legionella and S.pneumonia urinary Ag
VAnco/Zosyn
#ELIGIO concern for TLS due to large B-cell lymphoma recurrence
#Hyperkalemia 2/2 ELIGIO
Nephrology for CRRT
follow Ca, Potassium, Phosphorus, Uric acid
Oncology follows
s/p rasburicase
Allopurinol
Pedraza and follow I&O
follow Cr
#Pancytopenia with elevated LDH
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
follow CBC and transfuse as needed
Follow fibrinogen, haptoglobin, Croombs, DDimer, INR, hematology
#non-ischemic myocardial injury
2/2 shock and hypoxia
follow trop
#Abdominal distension
hepatosplenomegaly
#Bilirubinemia, direct
#Elevated AST
Abd MRI: lymphadenopathy compressing bile duct
GI consult
#Elevated alk.phos
since s/p cholecystectomy - most likely 2/2 lymphoma
#DM type 2 with unspecified complications
Insulin SS, DM diet, Accuchecks
hold oral hypoglycemics
#GERD
cont PPI
#L adrenal mass stable since 2021
#Chronic non-incarcerated asymptomatic umbilical hernia
[facility] evaluated - cont monitr
#Constipation
laxatives
DVT ppx SCDs
Full code
I have spent at least 58min reviewing chart, test results, communication with consultants, family and providing direct patient care
Anticipated Discharge: > 48 hours
Subjective/Interval History
-
Date of Service: September 27, 2024
Objective Data
-
Labs:
Laboratory Results
09/27/24 09/27/24 09/27/24
00:12 00:12 04:05
WBC 5.5
Hgb 7.1 L
Hct 22.2 L
Plt Count 102 L
HCO3 17.6 L
Sodium 138 139
Potassium 5.9 H Cancelled 5.2 H
Chloride 105 104
Carbon Dioxide 17 L 22
BUN 92 H 94 H
Creatinine 4.8 H* 5.0 H*
Glucose 217 H 211 H
Calcium 8.0 L 7.9 L
Total Bilirubin 8.6 H
AST 84 H
ALT 27
Alkaline Phosphatase 201 H
09/27/24
13:00
WBC
Hgb
Hct
Plt Count
HCO3 Pending
Sodium
Potassium
Chloride
Carbon Dioxide
BUN
Creatinine
Glucose
Calcium
Total Bilirubin
AST
ALT
Alkaline Phosphatase
Vital Signs:
Vital Signs
Temp Pulse Resp BP Pulse Ox
98.3 F 91 20 129/69 100
09/27/24 08:16 09/27/24 09:30 09/27/24 09:30 09/26/24 22:58 09/27/24 09:30
I&O
09/26/24 09/27/24 09/28/24
06:59 06:59 06:59
Intake Total 1042.8 / 1116.2 300.6 / 300.6
Output Total 200 / 200 370 / 370 52 / 52
Balance -200 / -200 672.8 / 746.2 248.6 / 248.6
Review of Systems
-
Unable to obtain full review of systems at this time due to: Patient Intubation
Physical Exam
-
General: Intubated
Respiratory: Clear to Auscultation
Cardiac: Regular Rhythm
GI: Soft and Nondistended
Genito-urinary: Pedraza
Neuro: Sedated
Psych: Calm
[2024-09-27 10:43] LABS: Glucose - Point of Care 111 mg/dl (70-99)
[2024-09-27] MEDS: RFP-400 HD Soln (K+ 2 mEq/L) 15000 ML CRRT-IRR (11:01)
--- NOTE | 2024-09-27 11:38 | W.PN.GI.CBS2 ---
Today's Communication / Plan
-
Will discuss MRI/MRCP with Dr. Mir
Assessment / Plan
-
Alex Lopez is a 69-year-old gentleman with past medical history of previously treated diffuse large B-cell lymphoma in 2019, Armstrong's esophagus with high-grade dysplasia s/p tx with RFA (follows with Dr. Elizabeth), Prostate Ca s/p radical
prostatectomy, hx cholecystectomy who presents with B symptoms concerning for recurrence of DLBL. PET CT scan showed b/l axillary LN, mediastinal LN and b/l hilar LN with increased FDG uptake suggestive for relapse. On admission, labs concerning for
tumor lysis syndrome. He underwent port-a-cath placement and R. axillary LN dissection on 09/26, not maintaining his airway post-procedurally and was subsequently intubated and transferred to the ICU. With worsening oliguric renal failure, CRRT
initiated 09/27. He has persistently elevated LFTs, for which GI is following.
Tbili 8.6/ 7.9, AST 84, ALT 27, Alk phos 201
#Elevated Liver Enzymes
#Biliary ductal dilation
#Hepatosplenomegaly
#Lymphadenopathy 2/2 recurrence of DLBL
#Tumor Lysis Syndrome
#Pancytopenia w/ elevated LDH, concern for autoimmune hemolysis
#Oliguric renal failure
MRI/MRCP performed yesterday shows mild intrahepatic and extrahepatic bile duct dilation possibly caused due to extrinsic compression from periportal lymphadenopathy. Of note, CBD does not appear to be narrowed at the level of his lymphadenopathy,
which would be expected.
Plan:
-f/u hepatitis serologies, SPEP, EBV, IgG4-- low suspicion for autoimmune or infectious etiology
-will discuss MRI findings with Dr. Mir to see if there is a target amenable to stenting allowing for decompression, allowing for preferred treatment regimens to be administered if bili improves
-plan discussed with and daughter who expressed understanding, all questions answered. Will continue to follow
Subjective
Subjective
Date of Service: September 27, 2024
Patient seen in follow-up, and daughter at bedside, currently intubated and sedated in the ICU. Following R. IJ port-a-cath placement and R. axillary LN dissection on 09/26, patient was unable to maintain his airway and was subsequently intubated
and transferred to the ICU. He is planning to have a dialysis catheter placed today to begin CRRT.
Objective
Data Reviewed
Laboratory Data:
Laboratory Results
09/27/24 04:05
09/27/24 04:05
Laboratory Results
PT 16.8 Sec (11.4-14.6) H 09/26/24 19:39
INR 1.33 09/26/24 19:39
APTT 37.5 Sec (23.4-35.0) H 09/26/24 19:39
Phosphorus 6.1 mg/dl (2.5-4.5) H 09/27/24 04:05
Magnesium 2.2 mg/dl (1.6-2.3) 09/27/24 04:05
Total Bilirubin 8.6 mg/dl (0.2-1.3) H 09/27/24 04:05
AST 84 U/L (17-59) H 09/27/24 04:05
ALT 27 U/L (0-50) 09/27/24 04:05
Alkaline Phosphatase 201 U/L (38-126) H 09/27/24 04:05
Vital Signs and I&O:
Vital Signs
Temp Pulse Resp BP Pulse Ox
98.3 F 91 20 129/69 100
09/27/24 08:16 09/27/24 09:30 09/27/24 09:30 09/26/24 22:58 09/27/24 09:30
I&O
09/26/24 09/27/24 09/28/24
06:59 06:59 06:59
Intake Total 1042.8 / 1117.4 326.3 / 326.3
Output Total 200 / 200 370 / 370 53 / 53
Balance -200 / -200 672.8 / 747.4 273.3 / 273.3
Physical Exam
Physical Exam
HEENT: Anicteric (scleral icterus)
GI: Soft, Distended, Hepatomegaly and Splenomegaly
+jaundice
+intubated, sedated
--- NOTE | 2024-09-27 11:48 | W.PN.UPDATE ---
Update Note
Progress Note Update
Discussed with [employer] in details: with concern for hemolysis and findings of lymphadenopathy extrinsically compressing bile duct - will start steroids. Advised Decadron 40mg daily for now. PPI BID for GI ppx
[2024-09-27 11:53] LABS: % Basophils 0.2 % (0-2); % Immature Granulocytes 0.7 % (0-0.5); % Lymphocytes 12.8 % (20.5-51.1); % Monocytes 7.3 % (1.7-9.3); Absolute Lymphocytes 0.7 10^3/uL (1.2-3.4); Absolute Monocytes 0.4 10^3/uL (0.1-0.6); Absolute Neutrophils 4.3 10^3/uL (1.4-6.5); Nucleated Red Blood Cells % 0 % (-)
--- NOTE | 2024-09-27 11:53 | PHA.VAN.FU ---
Vancomycin Assessment / Plan
- Assessment
Hemodialysis Schedule: Other (CRRT started 09/27/24 ( 1.5 L/hr))
WBC's are: Stable
In the past 24 hrs, patient has been: Afebrile
Concomitant Antimicrobials: pip/tazo
- Assessment - Therapeutic Drug Monitoring
Random Level: 14.4 form 09/27 404
- Dosing Plan
Continue: dose by random level
Dosing by Level: Re-dose today (1000 mg x 1 dose)
- Monitoring Plan
Random Level: repeat random level AM 09/28 06
- Follow Up
Pharmacy will continue to follow.
Vancomycin Follow UP
- -
Patient Age: 69
Patient Sex: Male
Vancomycin Day #: 3
Indication: Other
Requesting Provider: BRIANDA
Height / Weight:
Height 5 ft 7 in
Actual Weight 97.7 kg
Pertinent Past Medical History: LARGE B CELL LYMPHOMA; PROSTATE CA; DM; CRRT started 09/27/24
- Vital Signs / Lab Results
Temp Pulse Resp BP Pulse Ox
99.1 F 91 20 129/69 100
09/27/24 11:00 09/27/24 09:30 09/27/24 09:30 09/26/24 22:58 09/27/24 09:30
Lab Results - Hematology
09/25/24 09/26/24 09/26/24
10: 06:14 19:39
WBC 4.4 L 4.2 L 5.4
09/27/24
04:05
WBC 5.5
Lab Results - Chemistry
09/25/24 09/25/24 09/26/24
10: 18:06 06:12
BUN 70 H 72 H 77 H
Creatinine 3.0 H 3.3 H 3.8 H
Estimated Creat Clear 23 20
Albumin 2.6 L 2.3 L
09/26/24 09/26/24 09/27/24
08:06 19:39 00:12
BUN Cancelled 84 H 92 H
Creatinine Cancelled 4.8 H* 4.8 H*
Estimated Creat Clear Cancelled 16 16
Albumin Cancelled 2.4 L
09/27/24
04:05
BUN 94 H
Creatinine 5.0 H*
Estimated Creat Clear 16
Albumin 2.4 L
09/26/24
19:39
Lactic Acid 4.0 H*
Microbiology Results
09/27/24 09:19 Legionella Urinary Antigen - Final
Urine Negative for Legionella pneumophila Serogroup 1 antigen.
A negative result does not rule out the possiblity of
Legionella infection due to other serogroups or species of
Legionella. Clinical correlation is recommended.
Streptococcus pneumoniae Antigen (M - Final
Negative for Streptococcus pneumoniae antigen.
A negative result does not exclude infection with
Streptococcus pneumoniae. Clinical correlation is
recommended.
09/25/24 11:51 Blood Culture - Preliminary
Blood/Venous No Growth in 24 hours- Final report to follow
09/25/24 11:51 Blood Culture - Preliminary
Blood/Venous No Growth in 24 hours- Final report to follow
09/25/24 13:09 Urine Culture - Final
Urine NO GROWTH
09/25/24 11:51 Influenza Types A & B (DEONDRE) - Final
Nasal Swab Negative for Influenza A & B, NAAT
Negative results must be combined with clinical observations
and patient history.
Nucleic Acid Amplification test (NAAT)performed on the
[employer] platform.
Therapeutic Drug Monitoring
Random Vancomycin 14.4 ug/ml 09/27/24 04:05
[2024-09-27] MEDS: DECADRON 60 MG IV (12:23)
[2024-09-27 12:24] LABS: Glucose - Point of Care 93 mg/dl (70-99)
[2024-09-27 12:28] LABS: B.E. -6.3 mmol/L; HCO3 18.9 mmol/L (21-28); O2 Saturation % 99.5 % (94-98); PCO2 35 mmHg (35-48); PO2 130 mmHg (83-108); pH 7.34 (7.35-7.45)
[2024-09-27 12:41] LABS: Fibrinogen 607 MG/DL (199-459); INR 1.33; Lactic Acid 2.8 mmol/L (0.7-2.0); PT 16.8 Sec (11.4-14.6)
[2024-09-27] MEDS: VANCOCIN 200 IV (12:54)
--- NOTE | 2024-09-27 13:01 | W.PN.ONC ---
Today's Communication / Plan
-
Excisional LN bx
Initiate pulse steroids in hopes of reducing pace of malignancy
Consider IV Cytoxan although this may accelerate tumor lysis syndrome
Hemolysis panel pending
Allopurinol, renal dosing
Repeat Elitek as per parameters
CBC, CMP, LDH, urate, phos daily
Discussed the dismal prognosis with the family
Impression
Impression
Suspected suspected recurrent aggressive hematologic malignancy
Suspected TLS full-blown uric acid 6
ELIGIO
pancytopenia
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
Obstructive hepatopathy
Critically ill
Subjective/Objective
Subjective/Objective
Patient intubated. Family indicates occasionally responsive.
Vital Signs:
Vital Signs
Temp Pulse Resp BP Pulse Ox
99.1 F 89 19 129/69 99
09/27/24 11:00 09/27/24 12:00 09/27/24 12:00 09/26/24 22:58 09/27/24 12:00
PE:
Icteric
Distended
Tachycardic
Intubated
Lab Results:
Laboratory Data
WBC 5.5 10^3/uL (4.8-10.8) 09/27/24 04:05
Hgb 7.1 g/dL (13.0-18.0) L 09/27/24 04:05
Plt Count 102 10^3/uL (130-400) L 09/27/24 04:05
PT 16.8 Sec (11.4-14.6) H 09/27/24 11:53
INR 1.33 09/27/24 11:53
APTT 37.5 Sec (23.4-35.0) H 09/26/24 19:39
eGFR 11.81 09/27/24 04:05
--- NOTE | 2024-09-27 13:03 | W.PN.NEPH.PH ---
Today's Communication / Plan
-
[facility]
Assessment/Plan
-
Impression:
Acute renal failure (3.0)
History of prior lymphoma with suspicion for recurrence given B symptoms
Pancytopenia
Armstrong's esophagus
Hypoalbuminemia
Long-term Diabetes
Plan:
ELIGIO:
CT of abdomen no obstructive renal component
-Will administer IV fluids NSS 200cc/hr
-With hold metformin in setting of acute renal failure
-Check urine sodium urine creatinine urinalysis and urine protein to creatinine ratio
-Must be hypervigilant with phosphate, calcium, and potassium in setting of tumor lysis syndrome
Creatinine continues to increase.
Status post rasburicase.
Clinical status still worsened overnight. He is now intubated post Port-A-Cath and lymph node biopsy.
He is anuric on 2 pressors
Acute dialysis required via CRRT. femoral dialysis catheter placed by critical care.
Total Time Spent with Patient (in minutes): 35
-
-
Date of Service: September 27, 2024
CC / HPI / ROS
-
Chief Complaint:
Acute kidney
History of Present Illness:
recurrent DLBCL, initially tx with RCHOP 2020. s/p IR Left LN core bx 09/25
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
Acute dialysis 09/27
Review of Systems:.
Intubated
Labs
-
Labs:
Sodium 139 mmol/L (135-145) 09/27/24 04:05
Potassium 5.2 mmol/L (3.5-5.1) H 09/27/24 04:05
Chloride 104 mmol/L (98-107) 09/27/24 04:05
Carbon Dioxide 22 mmol/L (22-30) 09/27/24 04:05
BUN 94 mg/dl (9-20) H 09/27/24 04:05
Creatinine 5.0 mg/dL (0.7-1.3) H* 09/27/24 04:05
eGFR 11.81 09/27/24 04:05
Glucose 211 mg/dl (70-99) H 09/27/24 04:05
Calcium 7.9 mg/dl (8.4-10.2) L 09/27/24 04:05
Phosphorus 6.1 mg/dl (2.5-4.5) H 09/27/24 04:05
Albumin 2.4 g/dl (3.5-5.0) L 09/27/24 04:05
Physical Exam
-
Vital Signs:
Vital Signs
Temp Pulse Resp BP Pulse Ox
99.1 F 89 19 129/69 99
09/27/24 11:00 09/27/24 12:00 09/27/24 12:00 09/26/24 22:58 09/27/24 12:00
--- NOTE | 2024-09-27 13:05 | W.PN.NEPH.HD ---
Assessment
-
Patient seen on CRRT tolerating so far ultrafiltration -100/h
Progress Note - Hemodialysis
-
Date of Service: September 27, 2024
--- NOTE | 2024-09-27 13:14 | PTCARENOTE ---
CRRT started at 1200. Remains on Levophed, Vasopressin, and Precedex gtts. Insulin gtt per glycemic protocol.
Sinus rhythm. Trace general edema.
Vent settings A/C 18/500/40%/6 Scatter rhonchi noted.
OGT to low intermittent suction with yellow-green output. + bowel sounds x4. Abdomen soft and nontender. No BM.
Decreased urine output. see I&Os. Jaz urine.
All other assessments unchanged.
[2024-09-27 13:17] LABS: D-Dimer 10.18 ug/mlFEU (0.00-0.50)
[2024-09-27 13:33] LABS: Glucose - Point of Care 94 mg/dl (70-99)
--- NOTE | 2024-09-27 15:12 | OR.RPT ---
Operative Report
Operative Report
Right Femoral Trialysis catheter placement: (13F, 3 lumens)
Indication: ELIGIO, dialysis access needed
Consent obtained from: Patient's at bedside. t
Time-out was performed and patient was placed in supine. Ultrasound was used to assess patency of Right Femoral Vein. Under sterile conditions area was cleaned with chlorhexidine and then a full body drape was placed. 3 mL of local anesthesia
with lidocaine was injected. Under real-time ultrasound guidance, long axis view, the needle was inserted and vein was punctured, once blood was aspirated, syringe was removed and guidewire was advanced which did not meet any resistance.
Subsequently needle was withdrawn and guidewire was left in place. Ultrasound was used again to confirm presence of guidewire inside the vein lumen. A small romero was placed at the skin and a dilator was advanced to about 50% of its length. Serial
dilation was performed with 3 dilators. Dilator was removed and Trialysis catheter was advanced over guidewire and subsequently guidewire was removed. All 3 ports were capped and they were easy to flush and were withdrawing blood without any
resistance. Central line was sutured to the skin and dressing was applied.
(Patient has right sided port placed hence right IJ was not accessed. Left IJ line was attempted but appears that there is a central stenosis as guidewire Meeting resistance hence procedure performed on right femoral vein instead.)
Complications: None
Blood loss: Minimal
Time spent: 35 min
[2024-09-27 15:17] LABS: Glucose - Point of Care 167 mg/dl (70-99)
--- NOTE | 2024-09-27 15:50 | W.PN.SURGUPD ---
Surgical Update
Surgical Update
Patient seen and examined in ICU with Dr Florez:
POD #1 Right internal jugular port-a-cath placement, right axillary lymph node dissection for biopsy/path
RTOR for repositioning of port with f/u XR demonstrating port in good position with catheter tip projecting over the cavoatrial junction. Port accessed and functioning.
Right axillary incision well approximated with intact dermabond to incision site. Some SQ emphysema on xr and exam consistent with recent procedure.
Surgery to follow peripherally, please call with ?'s/concerns
--- NOTE | 2024-09-27 16:00 | PTCARENOTE ---
Pt alert and able to make needs known by writing. Weaning Levophed as able. All other assessments unchanged.
[2024-09-27 16:14] LABS: Glucose - Point of Care 171 mg/dl (70-99)
[2024-09-27 16:51] LABS: IgG Subclass 4 40 mg/dL (1-123)
[2024-09-27 17:33] LABS: Glucose - Point of Care 194 mg/dl (70-99)
[2024-09-27 17:35] LABS: EBV-EA (D) Ab IgG 51.3 U/mL (0.0-10.9); EBV-NA IgG >600.0 U/mL (0.0-21.9); EBV-VCA IgM Antibodies <10.0 U/mL (0.0-43.9)
[2024-09-27 18:02] LABS: B.E. -6.2 mmol/L; HCO3 18.6 mmol/L (21-28); O2 Saturation % 99.4 % (94-98); PCO2 33 mmHg (35-48); PO2 136 mmHg (83-108); pH 7.36 (7.35-7.45)
[2024-09-27 18:06] LABS: Ionized Calcium 0.97 mMOL/L (1.15-1.33)
[2024-09-27 18:13] LABS: Glucose - Point of Care 194 mg/dl (70-99)
[2024-09-27 18:18] LABS: Lactic Acid 1.6 mmol/L (0.7-2.0)
[2024-09-27 18:19] LABS: Blood Urea Nitrogen 84 mg/dl (9-20); Calcium 7.6 mg/dl (8.4-10.2); Carbon Dioxide 19 mmol/L (22-30); Chloride 105 mmol/L (98-107); Estimated Creatinine Clearance 17 ml/min; Glucose 211 mg/dl (70-99); Magnesium 2.2 mg/dl (1.6-2.3); Phosphorus 5.2 mg/dl (2.5-4.5); Potassium 5.9 mmol/L (3.5-5.1); Sodium 136 mmol/L (135-145); eGFR 13.05
[2024-09-27 18:22] LABS: Hematocrit 21.4 % (39.0-52.0); Hemoglobin 7.2 g/dL (13.0-18.0); Mean Corp Hgb Conc. 33.6 g/dL (33.0-37.0); Mean Corpuscular Hgb 25.9 pg (27.0-31.0); Mean Platelet Volume 10.1 fL (7.4-10.4); Platelet Count 118 10^3/uL (130-400); Red Blood Cell Count 2.78 10^6/uL (4.70-6.10); Red Cell Dist. Width 15.8 % (11.5-14.5); White Blood Cell Count 5.2 10^3/uL (4.8-10.8)
[2024-09-27 18:49] LABS: % Basophils 0.2 % (0-2); % Immature Granulocytes 0.6 % (0-0.5); % Lymphocytes 14.7 % (20.5-51.1); % Monocytes 2.9 % (1.7-9.3); % Neutrophils 81.6 % (42.2-75.2); Absolute Lymphocytes 0.8 10^3/uL (1.2-3.4); Absolute Monocytes 0.2 10^3/uL (0.1-0.6); Absolute Neutrophils 4.3 10^3/uL (1.4-6.5); Nucleated Red Blood Cells % 0 % (-)
[2024-09-27 19:19] LABS: Glucose - Point of Care 191 mg/dl (70-99)
--- NOTE | 2024-09-27 19:27 | PTCARENOTE ---
K 5.9 Dr Ruiz made aware. CRRT change to K+ 0
[2024-09-27] MEDS: CALCIUM GLUCONATE 130 MG IV (19:48)
[2024-09-27 20:28] LABS: Glucose - Point of Care 202 mg/dl (70-99)
[2024-09-27] MEDS: RFP-402 HD Soln (K+ 0 mEq/L) 15000 ML CRRT-IRR (20:36)
--- NOTE | 2024-09-27 20:46 | PTCARENOTE ---
Received pt intubated and sedated on precedex gtt. Pt. easily arousable, LEVY, follows commands, able to write on paper at times. He wrote 'my thoughts are crazy' - explained to pt he is on sedation and many medications, encouragement provided. NSR
on tele, HR 70s. L radial A line transduced and zeroed. On vaso and levo to maintain MAP>65 - see worklist for titrations. Afebrile. Weak DPs. #7 ETT 23 in center. Spo2 100% on A/C 18/500/+6/40%. Round abd. Hypoactive bowel sounds. OG tube to LIWS
with green output. Pedraza draining komal urine - oliguric, ~6ml/hr. CVVHD ongoing with UF ordered negative 100ml/hr. Tolerating well. HD cath in R fem. R neck, R axillary and R ant. CW with surgical incisions - all approximated with surgi glue
intact. R SQ port, L hand INT and L foot INT present. Levo, vaso, insulin gtt (glycemic protocol), precedex infusing.
1800 labs reviewed with mehreen PAIZ who communicated K of 5.9 to cad designer who ordered to change therapy fluid to 0K+ bath. Fluids brought up from SPD and hung. Calcium repleted also.
[2024-09-27 22:15] LABS: Glucose - Point of Care 176 mg/dl (70-99)
[2024-09-27 22:15] LABS: Glucose - Point of Care 190 mg/dl (70-99)
[2024-09-27 23:16] LABS: Glucose - Point of Care 166 mg/dl (70-99)
--- NOTE | 2024-09-28 | PTCARENOTE ---
Pt reassessed. No changes. Tolerating CRRT. Attempting to wean levo. Urine output remains 5-10ml/hr. Repeat labs drawn.
[2024-09-28 00:11] LABS: Ionized Calcium 1.11 mMOL/L (1.15-1.33)
[2024-09-28 00:19] LABS: Glucose - Point of Care 169 mg/dl (70-99)
[2024-09-28 00:21] LABS: Endomysial IgA Antibody Titer <1:10 (<1:10)
[2024-09-28 00:32] LABS: Blood Urea Nitrogen 84 mg/dl (9-20); Calcium 8.5 mg/dl (8.4-10.2); Carbon Dioxide 23 mmol/L (22-30); Chloride 104 mmol/L (98-107); Estimated Creatinine Clearance 18 ml/min; Glucose 182 mg/dl (70-99); Magnesium 2.4 mg/dl (1.6-2.3); Phosphorus 5.7 mg/dl (2.5-4.5); Potassium 4.9 mmol/L (3.5-5.1); Sodium 136 mmol/L (135-145); eGFR 14.56
[2024-09-28 01:01] LABS: Hematocrit 20.6 % (39.0-52.0); Mean Corpuscular Hgb 25.9 pg (27.0-31.0); Mean Corpuscular Volume 76.3 fL (80.0-94.0); Mean Platelet Volume 10.5 fL (7.4-10.4); Platelet Count 132 10^3/uL (130-400); Red Cell Dist. Width 15.8 % (11.5-14.5); White Blood Cell Count 5.4 10^3/uL (4.8-10.8)
[2024-09-28 01:17] LABS: Glucose - Point of Care 170 mg/dl (70-99)
[2024-09-28 01:19] LABS: tTG IgA Antibody <1.02 FLU (0.00-4.99)
[2024-09-28] MEDS: LEVOPHED 250 IV (01:37)
[2024-09-28] MEDS: CALCIUM GLUCONATE 130 MG IV ×2 (01:59→12:56)
[2024-09-28 03:01] LABS: Haptoglobin 313 mg/dL (30-200)
[2024-09-28 03:13] LABS: Glucose - Point of Care 182 mg/dl (70-99)
[2024-09-28 04:21] LABS: Glucose - Point of Care 152 mg/dl (70-99)
--- NOTE | 2024-09-28 05:14 | PTCARENOTE ---
Vasopressin turned off. Remains on levo. MAP maintaining >65. Tolerating CRRT well, running without complication.
Bathed with CHG. Pt. interactive and assisting with turning, writing on paper to communicate his questions. Encouragement/education provided.
Repeat labs due at 0600.
[2024-09-28 06:00] VITALS: BMI 33.4
[2024-09-28] MEDS: RFP-402 HD Soln (K+ 0 mEq/L) 10000 ML CRRT-IRR (06:00)
[2024-09-28 06:01] LABS: Glucose - Point of Care 168 mg/dl (70-99)
[2024-09-28] MEDS: ZOSYN 50 IV ×4 (06:14→23:19)
[2024-09-28] MEDS: PRECEDEX 100 IV (06:14)
[2024-09-28 06:18] LABS: B.E. -2.7 mmol/L; HCO3 21.4 mmol/L (21-28); Ionized Calcium 1.25 mMOL/L (1.15-1.33); O2 Saturation % 99.3 % (94-98); PCO2 33 mmHg (35-48); PO2 101 mmHg (83-108); pH 7.42 (7.35-7.45)
[2024-09-28 06:26] LABS: O2 Therapy 40%
[2024-09-28 06:31] LABS: Carbon Dioxide 22 mmol/L (22-30); Estimated Creatinine Clearance 19 ml/min; Total Protein 4.8 g/dl (6.3-8.2); eGFR 15.44
[2024-09-28 06:44] LABS: Vancomycin Random 15.1 ug/ml
[2024-09-28 06:48] LABS: ALT (SGPT) 26 U/L (0-50); AST (SGOT) 86 U/L (17-59); Albumin 2.4 g/dl (3.5-5.0); Alkaline Phosphatase 199 U/L (38-126); Blood Urea Nitrogen 83 mg/dl (9-20); Calcium 9.1 mg/dl (8.4-10.2); Chloride 103 mmol/L (98-107); Glucose 180 mg/dl (70-99); Magnesium 2.3 mg/dl (1.6-2.3); Phosphorus 6.4 mg/dl (2.5-4.5); Potassium 4.6 mmol/L (3.5-5.1); Sodium 136 mmol/L (135-145); Total Bilirubin 6.6 mg/dl (0.2-1.3); Uric Acid 6.4 mg/dl (3.5-8.5)
[2024-09-28 06:50] LABS: Hematocrit 20.8 % (39.0-52.0); Mean Corp Hgb Conc. 33.7 g/dL (33.0-37.0); Mean Corpuscular Volume 77.3 fL (80.0-94.0); Mean Platelet Volume 10.5 fL (7.4-10.4); Platelet Count 131 10^3/uL (130-400); Red Blood Cell Count 2.69 10^6/uL (4.70-6.10); Red Cell Dist. Width 15.8 % (11.5-14.5); White Blood Cell Count 6.4 10^3/uL (4.8-10.8)
[2024-09-28 06:56] LABS: LDH 1194 U/L (120-246)
[2024-09-28] MEDS: NOVOLOG FLEXPEN SC ×3 (07:18→17:13)
[2024-09-28 07:19] LABS: Glucose - Point of Care 176 mg/dl (70-99)
[2024-09-28] MEDS: NSS (PRESERVATIVE FREE) 10 ML IV ×2 (08:03→19:41)
[2024-09-28] MEDS: HEPARIN 5000 UNITS SC ×2 (08:03→19:41)
[2024-09-28] MEDS: MIRALAX 17 GRAMS TUBE (08:03)
[2024-09-28] MEDS: PROTONIX IV 40 MG IV ×2 (08:03→19:41)
[2024-09-28] MEDS: ZYLOPRIM 100 MG PO (08:04)
[2024-09-28] MEDS: SENOKOT-S 1 TABLET TUBE (08:04)
[2024-09-28 08:06] VITALS: BP_SYST 107
[2024-09-28 08:15] VITALS: BP_SYST 108
[2024-09-28 08:17] LABS: Glucose - Point of Care 158 mg/dl (70-99)
--- NOTE | 2024-09-28 08:32 | PTCARENOTE ---
On Precedex off. Restraints d/c'd. Tolerating SBT. Weaning Levophed. Remains on Insulin gtt. PRNs for constipation given. CRRT continues.
[2024-09-28 09:18] LABS: Glucose - Point of Care 171 mg/dl (70-99)
[2024-09-28 09:26] LABS: % Immature Granulocytes 0.8 % (0-0.5); % Monocytes 2.8 % (1.7-9.3); % Neutrophils 83.4 % (42.2-75.2); Absolute Immature Granulocytes 0.1 10^3/uL (0-0.05); Absolute Lymphocytes 0.8 10^3/uL (1.2-3.4); Absolute Monocytes 0.2 10^3/uL (0.1-0.6); Absolute Neutrophils 5.4 10^3/uL (1.4-6.5); Nucleated Red Blood Cells % 0 % (-)
[2024-09-28 09:31] LABS: O2 Saturation % 99.3 % (94-98); PCO2 30 mmHg (35-48); PO2 122 mmHg (83-108); pH 7.41 (7.35-7.45)
--- NOTE | 2024-09-28 11:12 | W.PN.GI.CBS2 ---
Today's Communication / Plan
-
GI will sign off, please call back if clinical status improves and want to pursue ERCP
Assessment / Plan
-
Alex Lopez is a 69-year-old gentleman with past medical history of previously treated diffuse large B-cell lymphoma in 2019, Armstrong's esophagus with high-grade dysplasia s/p tx with RFA (follows with Dr. Elizabeth), Prostate Ca s/p radical
prostatectomy, hx cholecystectomy who presents with B symptoms concerning for recurrence of DLBL. PET CT scan showed b/l axillary LN, mediastinal LN and b/l hilar LN with increased FDG uptake suggestive for relapse. On admission, labs concerning for
tumor lysis syndrome. He underwent port-a-cath placement and R. axillary LN dissection on 09/26, not maintaining his airway post-procedurally and was subsequently intubated and transferred to the ICU. With worsening oliguric renal failure, CRRT
initiated 09/27. He has persistently elevated LFTs, for which GI is following.
Tbili 8.6/ 7.9, AST 84, ALT 27, Alk phos 201
#Elevated Liver Enzymes
#Biliary ductal dilation
#Hepatosplenomegaly
#Lymphadenopathy 2/2 recurrence of DLBL
#Tumor Lysis Syndrome
#Pancytopenia w/ elevated LDH, concern for autoimmune hemolysis
#Oliguric renal failure
MRI/MRCP performed 09/26 shows mild intrahepatic and extrahepatic bile duct dilation possibly caused due to extrinsic compression from periportal lymphadenopathy. Of note, CBD does not appear to be narrowed at the level of his lymphadenopathy, which
would be expected.
IgG4 WNL
EBV IgM neg, EBV IgG positive
Hepatitis panel negative
Plan:
-Discussed overall plan with Dr. Garcia-- patient is critically ill and at this time, proceeding with ERCP for stenting would not be in his best interest. That said, if patient clinically improves, and it is felt that the ERCP for decompression in
hopes of decreasing his bili to receive chemotherapy would be in his best interest, please reach back out to GI. GI will sign off for now, please call with questions/change in clinical status.
Subjective
Subjective
Date of Service: September 28, 2024
Patient remamins critically ill, intubated on levophed. He started CRRT yesterday.
Objective
Data Reviewed
Laboratory Data:
Laboratory Results
PT 16.8 Sec (11.4-14.6) H 09/27/24 11:53
INR 1.33 09/27/24 11:53
APTT 37.5 Sec (23.4-35.0) H 09/26/24 19:39
Phosphorus 6.4 mg/dl (2.5-4.5) H 09/28/24 06:08
Magnesium 2.3 mg/dl (1.6-2.3) 09/28/24 06:08
Total Bilirubin 6.6 mg/dl (0.2-1.3) H 09/28/24 06:08
AST 86 U/L (17-59) H 09/28/24 06:08
ALT 26 U/L (0-50) 09/28/24 06:08
Alkaline Phosphatase 199 U/L (38-126) H 09/28/24 06:08
Vital Signs and I&O:
Vital Signs
Temp Pulse Resp BP Pulse Ox
98.2 F 73 25 129/69 95
09/28/24 11:06 09/28/24 11:00 09/28/24 11:00 09/26/24 22:58 09/28/24 11:00
I&O
09/27/24 09/28/24 09/29/24
06:59 06:59 06:59
Intake Total 1042.8 / 1117.4 2110.1 / 2205.9 258.7 / 258.7
Output Total 370 / 370 3686 / 3805 569 / 569
Balance 672.8 / 747.4 -1575.9 / -1599.1 -310.3 / -310.3
Physical Exam
Physical Exam
HEENT: Anicteric (scleral icterus)
GI: Soft, Distended, Hepatomegaly and Splenomegaly
+jaundice
+intubated, sedated
[2024-09-28 11:16] LABS: Glucose - Point of Care 166 mg/dl (70-99)
[2024-09-28 11:41] LABS: Hematocrit 20.2 % (39.0-52.0); Hemoglobin 6.8 g/dL (13.0-18.0); Mean Corp Hgb Conc. 33.7 g/dL (33.0-37.0); Mean Corpuscular Hgb 25.5 pg (27.0-31.0); Mean Corpuscular Volume 75.7 fL (80.0-94.0); Platelet Count 133 10^3/uL (130-400); Red Blood Cell Count 2.67 10^6/uL (4.70-6.10); Red Cell Dist. Width 15.8 % (11.5-14.5); White Blood Cell Count 7.5 10^3/uL (4.8-10.8)
[2024-09-28 11:45] LABS: Ionized Calcium 1.16 mMOL/L (1.15-1.33)
--- NOTE | 2024-09-28 11:46 | W.PN.NEPH.PH ---
Today's Communication / Plan
-
Continue CRRT
Assessment/Plan
-
Impression:
Acute renal failure (3.0)
History of prior lymphoma with suspicion for recurrence given B symptoms
Pancytopenia
Armstrong's esophagus
Hypoalbuminemia
Long-term Diabetes
Plan:
ELIGIO:
CT of abdomen no obstructive renal component
-Will administer IV fluids NSS 200cc/hr
-With hold metformin in setting of acute renal failure
-Check urine sodium urine creatinine urinalysis and urine protein to creatinine ratio
-Must be hypervigilant with phosphate, calcium, and potassium in setting of tumor lysis syndrome
Status post rasburicase.
Clinical status still worsened overnight. He is now intubated post Port-A-Cath and lymph node biopsy.
He is anuric on 2 pressors
Acute dialysis required via CRRT./5 femoral dialysis catheter placed by critical care.
Acidosis has improved. Pressor requirements decreased on only Levophed.
Will continue CRRT through today and will determine modality tomorrow he should be okay for conventional on Sunday.
Discussed with family at length about renal prognosis which is uncertain at this time
Total Time Spent with Patient (in minutes): 35
-
-
Date of Service: September 28, 2024
CC / HPI / ROS
-
Chief Complaint:
Acute kidney
History of Present Illness:
recurrent DLBCL, initially tx with RCHOP 2020. s/p IR Left LN core bx 09/25
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
Acute dialysis 09/27
Review of Systems:.
Intubated
Labs
-
Labs:
WBC 7.5 10^3/uL (4.8-10.8) 09/28/24 11:27
RBC 2.67 10^6/uL (4.70-6.10) L 09/28/24 11:27
Hgb 6.8 g/dL (13.0-18.0) L* 09/28/24 11:27
Hct 20.2 % (39.0-52.0) L* 09/28/24 11:27
Plt Count 133 10^3/uL (130-400) 09/28/24 11:27
eGFR 15.44 09/28/24 06:08
Albumin 2.4 g/dl (3.5-5.0) L 09/28/24 06:08
Physical Exam
-
Vital Signs:
Vital Signs
Temp Pulse Resp BP Pulse Ox
98.2 F 73 25 129/69 95
09/28/24 11:06 09/28/24 11:00 09/28/24 11:00 09/26/24 22:58 09/28/24 11:00
--- NOTE | 2024-09-28 11:48 | W.PN.NEPH.HD ---
Assessment
-
The patient was seen on CRRT. Tolerating treatment increase ultrafiltration to 200 cc/h as tolerated
Progress Note - Hemodialysis
-
Date of Service: September 28, 2024
--- NOTE | 2024-09-28 11:49 | W.PN.ONC ---
Today's Communication / Plan
-
Excisional LN bx completed
Extubated
Total bilirubin improved at 6.6
Transfuse 1 unit of packed red blood cells for hemoglobin 6.8 g/dL
Mediport placement completed
Rasburicase 3 mg for uric acid > 8
On hemodialysis
Appears to be slightly better with steroids
Anticipate Cytoxan with follow-up same-day dialysis possibly Sunday or Sunday
Allopurinol, renal dosing
CBC, CMP, LDH, urate, phos daily
Impression
Impression
Await preliminary pathology
ELIGIO
pancytopenia
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
Obstructive hepatopathy secondary malignant lymphadenopathy
Critically ill
Subjective/Objective
Subjective/Objective
Patient extubated. Looking better today.
Vital Signs:
Vital Signs
Temp Pulse Resp BP Pulse Ox
98.2 F 73 25 129/69 95
09/28/24 11:06 09/28/24 11:00 09/28/24 11:00 09/26/24 22:58 09/28/24 11:00
PE:
Scleral icterus
Decreased in the bases
Intermittently tachycardic
Lab Results:
Laboratory Data
WBC 7.5 10^3/uL (4.8-10.8) 09/28/24 11:27
Hgb 6.8 g/dL (13.0-18.0) L* 09/28/24 11:27
Plt Count 133 10^3/uL (130-400) 09/28/24 11:27
PT 16.8 Sec (11.4-14.6) H 09/27/24 11:53
INR 1.33 09/27/24 11:53
APTT 37.5 Sec (23.4-35.0) H 09/26/24 19:39
eGFR 15.44 09/28/24 06:08
--- NOTE | 2024-09-28 11:51 | PHA.VAN.FU ---
Vancomycin Assessment / Plan
- Assessment
Hemodialysis Schedule: Other (CRRT started 09/27/24 ( 1.5 L/hr))
WBC's are: Stable
In the past 24 hrs, patient has been: Afebrile
Concomitant Antimicrobials: pip/tazo
- Assessment - Therapeutic Drug Monitoring
Random Level: 15.1 - after 1000 mg dose yesterday - on CRRT
- Dosing Plan
Continue: dosing by random level
Dosing by Level: Re-dose today (750 mg x 1 dose)
- Monitoring Plan
Random Level: repeat random level AM 09/29/24
- Follow Up
Pharmacy will continue to follow.
Vancomycin Follow UP
- -
Patient Age: 69
Patient Sex: Male
Vancomycin Day #: 4
Indication: Other
Requesting Provider: BRIANDA
Height / Weight:
Height 5 ft 7 in
Actual Weight 96.7 kg
Pertinent Past Medical History: LARGE B CELL LYMPHOMA; PROSTATE CA; DM; CRRT started 09/27/24
- Vital Signs / Lab Results
Temp Pulse Resp BP Pulse Ox
98.2 F 73 25 129/69 95
09/28/24 11:06 09/28/24 11:00 09/28/24 11:00 09/26/24 22:58 09/28/24 11:00
Lab Results - Hematology
09/26/24 09/26/24 09/27/24
06:14 19:39 04:05
WBC 4.2 L 5.4 5.5
09/27/24 09/27/24 09/28/24
17:50 23:59 06:08
WBC 5.2 5.4 6.4
09/28/24
11:27
WBC 7.5
Lab Results - Chemistry
09/25/24 09/26/24 09/26/24
18:06 06:12 08:06
BUN 72 H 77 H Cancelled
Creatinine 3.3 H 3.8 H Cancelled
Estimated Creat Clear 23 20 Cancelled
Albumin 2.3 L Cancelled
09/26/24 09/27/24 09/27/24
19:39 00:12 04:05
BUN 84 H 92 H 94 H
Creatinine 4.8 H* 4.8 H* 5.0 H*
Estimated Creat Clear 16 16 16
Albumin 2.4 L 2.4 L
09/27/24 09/27/24 09/28/24
17:50 23:59 06:08
BUN 84 H 84 H 83 H
Creatinine 4.6 H* 4.2 H* 4.0 H
Estimated Creat Clear 17 18 19
Albumin 2.4 L
09/26/24 09/27/24 09/27/24
19:39 11:53 17:50
Lactic Acid 4.0 H* 2.8 H 1.6
Microbiology Results
09/25/24 11:51 Blood Culture - Preliminary
Blood/Venous No Growth in 48 hours- Final report to follow
09/25/24 11:51 Blood Culture - Preliminary
Blood/Venous No Growth in 48 hours- Final report to follow
09/27/24 09:19 Legionella Urinary Antigen - Final
Urine Negative for Legionella pneumophila Serogroup 1 antigen.
A negative result does not rule out the possiblity of
Legionella infection due to other serogroups or species of
Legionella. Clinical correlation is recommended.
Streptococcus pneumoniae Antigen (M - Final
Negative for Streptococcus pneumoniae antigen.
A negative result does not exclude infection with
Streptococcus pneumoniae. Clinical correlation is
recommended.
09/25/24 13:09 Urine Culture - Final
Urine NO GROWTH
Therapeutic Drug Monitoring
Random Vancomycin 15.1 ug/ml 09/28/24 06:08
[2024-09-28] MEDS: DECADRON 60 MG IV (11:57)
--- NOTE | 2024-09-28 12:11 | W.PN.HOSP.TC ---
Today's Communication/Plan
-
COnt Abx
PRBC 1 unit
cont steroids, PPI
Assessment / Plan
Assessment / Plan
69yo M with PMHx of cholecystectomy, large B-cell lymphoma in remission for 5 years, GERD, DM, Hx of prostate CA s/p resection sent by oncologist due to abnormal bloodwork. managed for possible TLS on the recurrence of lymphoma. Uric acid improved
on Rasburicase, s/p lyumph node biopsy by IRAD on 09/25/24, pending chemo port placement by [facility]. With direct bilirubinemia MRCP done that showed compression of the bile duct by lymphadenopathy. Had also Right internal jugular port-a-cath placement,
right axillary lymph node dissection on 09/26/24 and could not maintain his airways after procedure, so remained intubated. Concern for new pneumonia. Started pulse steroids on 09/27/24
A/P:
#bilateral lower lobe pneumonia with acute hypoxic respiratory failure and septic shock
#Fevers with possible UTI
XR on admission with scarring but no signs of consolidation or pneumonia, on Zosyn since admission, suspect aspiration event vs rapidly developed VAP after surgical intervention
Vent, sedation and pressor mgmt as per pantry worker
Bcx NTD
Ucx no growth
COVID-19 and Influenza PCR neg
Sputum Cx neg for pathogen
Legionella and S.pneumonia urinary Ag neg
VAnco/Zosyn
#ELIGIO concern for TLS due to large B-cell lymphoma recurrence
#Hyperkalemia 2/2 ELIGIO
Nephrology for CRRT
follow Ca, Potassium, Phosphorus, Uric acid
Oncology follows: started pulse steroids on 09/27/24
s/p rasburicase
Allopurinol
Pedraza and follow I&O
follow Cr
#Pancytopenia with elevated LDH
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
follow CBC and transfuse as needed - 1 unit PRBC on 09/28/24
fibrinogen, haptoglobin, elevated -acute phase reactant
Croombs neg
DDimer elevated - acute phase reactant, US LE neg for DVT
Hematology follows
#non-ischemic myocardial injury
2/2 shock and hypoxia
follow trop
#Abdominal distension
hepatosplenomegaly
#Bilirubinemia, direct
#Elevated AST
Abd MRI: lymphadenopathy compressing bile duct
GI consult
#Elevated alk.phos
since s/p cholecystectomy - most likely 2/2 lymphoma
#DM type 2 with unspecified complications
Insulin drip while in ICU
Insulin SS, DM diet, Accuchecks
hold oral hypoglycemics
#GERD
cont PPI
#L adrenal mass stable since 2021
#Chronic non-incarcerated asymptomatic umbilical hernia
[facility] evaluated - cont monitor
#Constipation
laxatives
DVT ppx SCDs
Full code
I have spent at least 58min reviewing chart, test results, communication with consultants, family and providing direct patient care
Anticipated Discharge: > 48 hours
Subjective/Interval History
-
Date of Service: September 28, 2024
Objective Data
-
Labs:
Laboratory Results
09/27/24 09/28/24 09/28/24
23:59 06:00 06:08
WBC 5.4 6.4
Hgb 7.0 L 7.0 L
Hct 20.6 L* 20.8 L*
Plt Count 132 131
HCO3 Cancelled 21.4
Sodium 136 136
Potassium 4.9 4.6
Chloride 104 103
Carbon Dioxide 23 22
BUN 84 H 83 H
Creatinine 4.2 H* 4.0 H
Glucose 182 H 180 H
Calcium 8.5 9.1
Total Bilirubin 6.6 H
AST 86 H
ALT 26
Alkaline Phosphatase 199 H
09/28/24 09/28/24
09:15 11:27
WBC 7.5
Hgb 6.8 L*
Hct 20.2 L*
Plt Count 133
HCO3 19.0 L
Sodium Pending
Potassium Pending
Chloride Pending
Carbon Dioxide Pending
BUN Pending
Creatinine Pending
Glucose Pending
Calcium Pending
Total Bilirubin
AST
ALT
Alkaline Phosphatase
Vital Signs:
Vital Signs
Temp Pulse Resp BP Pulse Ox
98.2 F 73 25 129/69 95
09/28/24 11:06 09/28/24 11:00 09/28/24 11:00 09/26/24 22:58 09/28/24 11:00
I&O
09/27/24 09/28/24 09/29/24
06:59 06:59 06:59
Intake Total 1042.8 / 1117.4 2110.1 / 2205.9 258.7 / 258.7
Output Total 370 / 370 3686 / 3805 569 / 569
Balance 672.8 / 747.4 -1575.9 / -1599.1 -310.3 / -310.3
Review of Systems
-
Unable to obtain full review of systems at this time due to: Patient Intubation
Physical Exam
-
General: Intubated
Respiratory: Clear to Auscultation
Cardiac: Regular Rhythm
GI: Soft, Nontender and Nondistended
Musculoskeletal: No Clubbing, No Cyanosis and No Edema
Neuro: Awake and Alert
Psych: Calm
[2024-09-28] MEDS: VANCOCIN 150 IV (12:22)
[2024-09-28 12:32] LABS: Blood Urea Nitrogen 81 mg/dl (9-20); Carbon Dioxide 23 mmol/L (22-30); Chloride 105 mmol/L (98-107); Estimated Creatinine Clearance 21 ml/min; Glucose 155 mg/dl (70-99); Magnesium 2.3 mg/dl (1.6-2.3); Phosphorus 6.4 mg/dl (2.5-4.5); Potassium 4.2 mmol/L (3.5-5.1); Sodium 136 mmol/L (135-145); eGFR 17.52
[2024-09-28] MEDS: RFP-402 HD Soln (K+ 0 mEq/L) 5000 ML CRRT-IRR (12:52)
[2024-09-28 13:10] LABS: Troponin I 0.027 ng/ml
--- NOTE | 2024-09-28 13:13 | W.PN.INTV ---
Today's Communication / Plan
Recommendations
- Pressure support trial, did well, extubated to nasal cannula
-Wean pressors as tolerated
- Follow-up chest x-ray in a.m.
Assessment
-
Patient is a 69-year-old gentleman with past medical history of cholecystectomy, large B-cell lymphoma in remission for about 5 years, diabetes, s/p surgery for prostate cancer in remission, who was sent by oncologist office for abnormal workup and
was admitted on 09/25. Patient family reports that over the last few months, he had started to develop night sweats which was concerning for return of his prior lymphoma. He also developed worsening abdominal distention couple of weeks ago along
with dark urine and intermittent vomiting. He was subsequently seen by oncology service and was sent to the emergency room for further evaluation. Lab work initially showed elevated bilirubin, acute kidney injury as well as pancytopenia.
09/26, patient had right axillary lymph node dissection as well as port placement for future chemotherapy. Post surgery he had to be reintubated due to respiratory failure and was subsequently transferred to ICU. Patient since have developed
worsening oliguric renal failure, shock requiring pressor support. Industrial Technician consultation was requested for further management. Patient had a trialysis catheter placed and was started on CRRT in view of anuria, worsening renal function and
hypotension requiring 2 pressors.
#1. Shock, septic (related to Pneumonia) vs related to tumor lysis syndrome
-Patient now off vasopressin and Levophed down to 3 only, anticipate he will come off pressors by end of day
-Follow-up on blood cultures, so far no growth
-Continue broad-spectrum antibiotic vancomycin and Zosyn
#2. Acute respiratory failure with bibasilar pneumonia. Family reports that patient had been coughing for last couple of weeks and had an x-ray as an outpatient which was negative.
-Follow-up on blood cultures
-Await tracheal aspirate cultures,
-Continue broad-spectrum antibiotics
-Extubated 09/28 to nasal cannula
-Check MRSA screen, Legionella and strep pneumo antigen
-CXR shows improving infiltrates, f/u imaging in AM.
#3. ELIGIO with hyperkalemia. Suspect this is sequelae of tumor lysis syndrome. S/p rasburicase.
-Nephrology service on case
-Trialysis catheter placed 09/27
-Continue CRRT, -2.5 Ltr over last 24 hrs.
#4. DM with hyperglycemia and hyperkalemia.
-Insulin infusion
#5. 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 Patient has acute kidney injury, uric acid, shock and respiratory failure.
-S/p rasburicase
-Extubated, 09/28
-Continuing CRRT for renal failure
-Pulse dose IV steroids, Dexamethasone 40 mg IV. IV Cytoxan being considered.
#6. Intra and extrahepatic bile duct dilation, felt to be related to extrinsic compression from periportal lymphadenopathy.
-GI service on case
-Continue to trend LFTs, bilirubin
DVT prophylaxis. Heparin s.c.
GI Prophylaxis. IV protonix
Critical Care time 45 mins -- The patient is admitted for acute critical illness for the treatment of vital organ failure and/or prevention of further life-threatening conditions. Total care includes time spent in review of history, physical exam,
medications, hemodynamic/ventilator parameters, laboratory data, imaging and discussion with house staff, pharmacy, respiratory therapy, regional sales engineer, and nursing.
Subjective Dataa
Subjective Data
Date of Service:
Date of Service: September 28, 2024
Subjective:
Patient was more awake and alert during mechanical ventilation this morning. He was tried on pressure support. Then he was examined again after extubation, comfortable without any respiratory distress.
Review of Systems
Genitourinary: Other (All 14 systems reviewed and negative except as stated above in the history of present illness.)
Objective Data
Data Reviewed
Vital Signs / I&O / Oxygen:
Vital Signs
Temp Pulse Resp BP Pulse Ox
98.2 F 73 25 129/69 95
09/28/24 11:06 09/28/24 11:00 09/28/24 11:00 09/26/24 22:58 09/28/24 11:00
Intake and Output
09/27/24 09/28/24 09/29/24
06:59 06:59 06:59
Intake Total 1042.8 / 1117.4 2110.1 / 2205.9 518.4 / 518.4
Output Total 370 / 370 3686 / 3805 1173 / 1173
Balance 672.8 / 747.4 -1575.9 / -1599.1 -654.6 / -654.6
SaO2 [A/C] 100
SaO2 95
Nasal Cannula flow liters per 4
minute
Physical Exam
General: Comfortable
HEENT: Normocephalic
Cardiovascular: S1-S2 and Regular Rhythm
Respiratory: Clear and Non-Labored Respirations
GI: Soft and Non Distended
Neurology: Awake, Alert and Oriented
Labs/Micro/Reports
Lab Data
09/28/24 11:27
09/28/24 11:27
Laboratory Results
09/27/24 09/28/24 09/28/24
17:50 06:00 06:08
pH 7.36 Cancelled 7.42
pCO2 33 L Cancelled 33 L
pO2 136 H Cancelled 101
HCO3 18.6 L Cancelled 21.4
O2 Delivery Level Cancelled 40%
09/28/24
09:15
pH 7.41
pCO2 30 L
pO2 122 H
HCO3 19.0 L
O2 Delivery Level Not Reportable
Microbiology
09/27/24 17:50 Tracheal Aspirate Gram Stain - Preliminary
09/25/24 11:51 Blood/Venous Blood Culture - Preliminary
No Growth in 72 hours- Final report to follow
09/25/24 11:51 Blood/Venous Blood Culture - Preliminary
No Growth in 72 hours- Final report to follow
09/27/24 09:19 Urine Legionella Urinary Antigen - Final
Negative for Legionella pneumophila Serogroup 1 antigen.
A negative result does not rule out the possiblity of
Legionella infection due to other serogroups or species of
Legionella. Clinical correlation is recommended.
09/27/24 09:19 Urine Streptococcus pneumoniae Antigen (M - Final
Negative for Streptococcus pneumoniae antigen.
A negative result does not exclude infection with
Streptococcus pneumoniae. Clinical correlation is
recommended.
09/25/24 13:09 Urine Urine Culture - Final
NO GROWTH
09/25/24 11:51 Nasal Swab Influenza Types A & B (DEONDRE) - Final
Negative for Influenza A & B, NAAT
Negative results must be combined with clinical observations
and patient history.
Nucleic Acid Amplification test (NAAT)performed on the
[employer] platform.
[2024-09-28] MEDS: RFP-402 HD Soln (K+ 0 mEq/L) 15000 ML CRRT-IRR (13:35)
[2024-09-28 13:50] LABS: Glucose - Point of Care 180 mg/dl (70-99)
[2024-09-28 15:23] VITALS: BP 125/51
--- NOTE | 2024-09-28 15:42 | PTCARENOTE ---
Extubated at 1000. SpO2 92-95% on 4L NC.
Tolerating CRRT with UF -200. Oliguric.
Weaning Levophed.
Receiving one unit PRBC per order.
Continue Insulin gtt per glycemic protocol. Denies pain.
No BM this shift. OG tube d/c'd when extubated.
All other assessments unchanged.
[2024-09-28 15:47] VITALS: BP 138/55
[2024-09-28 16:06] LABS: Glucose - Point of Care 144 mg/dl (70-99)
--- NOTE | 2024-09-28 16:58 | PTCARENOTE ---
CRRT red alarming low 'arterial flow'. Lines flipped.
[2024-09-28 18:24] LABS: Ionized Calcium 1.25 mMOL/L (1.15-1.33)
[2024-09-28 18:29] VITALS: BP 142/52
[2024-09-28 18:32] LABS: Hematocrit 20.8 % (39.0-52.0); Mean Corp Hgb Conc. 33.7 g/dL (33.0-37.0); Mean Corpuscular Volume 77.3 fL (80.0-94.0); Mean Platelet Volume 10.8 fL (7.4-10.4); Platelet Count 122 10^3/uL (130-400); Red Blood Cell Count 2.69 10^6/uL (4.70-6.10); White Blood Cell Count 7.2 10^3/uL (4.8-10.8)
[2024-09-28 18:49] LABS: Glucose - Point of Care 175 mg/dl (70-99)
[2024-09-28 18:50] LABS: Blood Urea Nitrogen 84 mg/dl (9-20); Calcium 9.2 mg/dl (8.4-10.2); Carbon Dioxide 23 mmol/L (22-30); Chloride 103 mmol/L (98-107); Estimated Creatinine Clearance 21 ml/min; Glucose 148 mg/dl (70-99); Magnesium 2.3 mg/dl (1.6-2.3); Potassium 3.9 mmol/L (3.5-5.1); Sodium 135 mmol/L (135-145); eGFR 17.52
--- NOTE | 2024-09-28 20:14 | PTCARENOTE ---
Received pt resting in bed, AAOx3, in good spirits. LEVY. NSR on tele, HR 80s-90s. BP stable off pressors. L radial A line transduced and zeroed. Trace anasarca. +1 edema to hands. On 4L NC. Lungs CTA. Spo2 94%. Round abd. + bowel sounds. Poor
appetite, had some jello for dinner. Pedraza cath draining komal urine - oliguric. See I&O. Remains on CVVHD, UF negative 200ml/hr. R fem HD cath. On 0K+ therapy fluid. Repeat labs K = 3.9. Dr. Ruiz notified. Orders to switch therapy fluid to
2K+ when current bags empty. Current 0K+ bags have a few hrs left. R fem pigtail cath with insulin infusing for glycemic protocol. R SQ port hep locked. L FA and L Foot INTs patent and capped. Turning q2. Call costa in reach
at beside. Updated on POC.
[2024-09-28 20:41] LABS: Glucose - Point of Care 198 mg/dl (70-99)
[2024-09-28] MEDS: NOVOLIN R INSULIN INFUSION 100 IV (21:04)
[2024-09-28 21:22] LABS: Glucose - Point of Care 188 mg/dl (70-99)
[2024-09-28] MEDS: RFP-400 HD Soln (K+ 2 mEq/L) 15000 ML CRRT-IRR (21:52)
--- NOTE | 2024-09-28 22:00 | PTCARENOTE ---
Therapy fluid switched to 2K+
[2024-09-28 22:22] LABS: Glucose - Point of Care 157 mg/dl (70-99)
--- NOTE | 2024-09-28 23:31 | PTCARENOTE ---
Unable to obtain axillary or oral temp. Rectal probe inserted - temp 95.7. CRRT warmer already at highest temp setting. Warm blankets applied - if no rise in temp, will place lauren hugger.
R fem HD cath oozing blood under dressing - dsg pulled down and large clot noted at insertion site. Clot left intact, new biopatch and dressing applied.
Pt. resting without complaints.
[2024-09-29] VITALS (12 sets, daily range): BP systolic 95–141; BP diastolic 45–78; BMI 32.3
[2024-09-29 00:18] LABS: IgA 89 mg/dl (70-400)
[2024-09-29 00:23] LABS: Glucose - Point of Care 118 mg/dl (70-99)
[2024-09-29 00:27] LABS: Ionized Calcium 1.18 mMOL/L (1.15-1.33)
[2024-09-29 00:49] LABS: Hemoglobin 6.8 g/dL (13.0-18.0); Mean Corpuscular Hgb 26.2 pg (27.0-31.0); Mean Corpuscular Volume 76.9 fL (80.0-94.0); Mean Platelet Volume 10.8 fL (7.4-10.4); Platelet Count 111 10^3/uL (130-400); Red Cell Dist. Width 15.7 % (11.5-14.5); White Blood Cell Count 6.7 10^3/uL (4.8-10.8)
[2024-09-29 00:52] LABS: Blood Urea Nitrogen 79 mg/dl (9-20); Carbon Dioxide 24 mmol/L (22-30); Chloride 102 mmol/L (98-107); Estimated Creatinine Clearance 22 ml/min; Glucose 122 mg/dl (70-99); Magnesium 2.3 mg/dl (1.6-2.3); Phosphorus 6.5 mg/dl (2.5-4.5); Sodium 137 mmol/L (135-145); eGFR 18.12
[2024-09-29] MEDS: CALCIUM GLUCONATE 130 MG IV ×2 (02:04→07:56)
[2024-09-29 02:18] LABS: Glucose - Point of Care 124 mg/dl (70-99)
--- NOTE | 2024-09-29 02:26 | PTCARENOTE ---
Labs repeated at 0000. Hgb 6.8. Type + screen repeated. 1 unit PRBCs ordered. Awaiting from blood bank.
iCal 1.18 - PRN calcium gluc infusing.
[2024-09-29 04:19] LABS: Glucose - Point of Care 117 mg/dl (70-99)
[2024-09-29] MEDS: ZOSYN 50 IV ×2 (05:52→11:38)
[2024-09-29 06:05] LABS: Glucose - Point of Care 116 mg/dl (70-99)
[2024-09-29] MEDS: RFP-400 HD Soln (K+ 2 mEq/L) 15000 ML CRRT-IRR (06:14)
--- NOTE | 2024-09-29 06:21 | PTCARENOTE ---
PRBC transfusion ended at 0600. Tolerated well. Repeat labs will be delayed due to this.
Pt. bathed with CHG, face shaven. Pt. without complaints throughout night.
--- NOTE | 2024-09-29 07:10 | W.PN.INTV ---
Today's Communication / Plan
Recommendations
Doing well, off pressors
CRRT x 1 more day, transition to HD per renal
Need to change catheter to tunneled per team
Encouraged PT, OOB when able, PO intake
IV steroids per Onc, consider transition to PO course
Insulin gtt transition to SQ regiment as well
When able to transition to HD, we will transfer to floors
Assessment
-
Patient is a 69-year-old gentleman with past medical history of cholecystectomy, large B-cell lymphoma in remission for about 5 years, diabetes, s/p surgery for prostate cancer in remission, who was sent by oncologist office for abnormal workup and
was admitted on 09/25. Patient family reports that over the last few months, he had started to develop night sweats which was concerning for return of his prior lymphoma. He also developed worsening abdominal distention couple of weeks ago along
with dark urine and intermittent vomiting. Lab work initially showed elevated bilirubin, acute kidney injury as well as pancytopenia. 09/26, patient had right axillary lymph node dissection as well as port placement for future chemotherapy. Post
surgery he had to be reintubated due to respiratory failure and was subsequently transferred to ICU. Patient since have developed worsening oliguric renal failure, shock requiring pressor support. Client Technical Professional consultation was requested for further
management. Patient had a trialysis catheter placed and was started on CRRT in view of anuria, worsening renal function and hypotension requiring 2 pressors.
Shock, septic (related to Pneumonia) vs related to tumor lysis syndrome
Acute respiratory failure with bibasilar pneumonia
ELIGIO with hyperkalemia, now on CRRT, initiated 09/27/24
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
Anemia/thrombocytopenia
Hyperphosphatemia
Elevated total bilirubin
Intra and extrahepatic bile duct dilation, felt to be related to extrinsic compression from periportal lymphadenopathy.
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
Hypercholesteremia
GERD without esophagitis
Cancer of prostate s/p radical perineal prostatectomy- 10/2018- stage T3- mayuri 3+3
B-cell lymphoma, unspecified B-cell lymphoma type, unspecified body region
History of diabetes mellitus
Obesity, BMI 32
knee arthroscopy
s/p ex lap for shrapnel- from lawn snow remover injury
s/p neck lipoma excision
throat ablation 2023
Plan
Off sedation, minimal pain
Tylenol PRN for now
RASS - 0
Patient now off vasopressors, completely
Hemodynamically stable
Monitor on telemetry
Extubated 09/28 to nasal cannula
Stable on NC
No history of respiratory disease
Family reports that patient had been coughing for last couple of weeks and had an x-ray as an outpatient which was negative
Diet advancement
Aspiration precautions
PPI if needed, presumed from outpatient
GI service on case
Continue to trend LFTs, bilirubin
Follow-up on blood cultures, so far no growth
Continue broad-spectrum antibiotic vancomycin and Zosyn
Check MRSA screen, negative--stop Vanc
Legionella and strep pneumo antigen neg
CXR shows improving infiltrates, f/u imaging in AM, sputum culture negative
Can complete Unasyn x 5 days
Suspect this is sequelae of tumor lysis syndrome. S/p rasburicase.
Pulse dose IV steroids, Dexamethasone 40 mg IV. IV Cytoxan being considered.
Oncology following
Transition IV steroids to PO per team
CRRT ongoing, likely to need HD
Change IV to tunneled HD cath per team, IR consulted
Nephrology service on case
Trialysis catheter placed 09/27
Continue CRRT, -2.5 Ltr over last 24 hrs.
Insulin infusion, transition to SQ regiment
DM PARCEL POST CLERK following
DVT prophylaxis. Heparin s.c.
GI Prophylaxis. IV protonix
Diagnostic Data
Chest X-Ray: 09/29/24-Slightly improved bibasilar opacification suggesting resolving subsegmental atelectasis and/or pneumonia.
09/28/24- 1. Large bilateral lower lobe airspace consolidations which appear to have mildly decreased in size and density since 09/26/2024 suggesting mild improvement in SEVERE BILATERAL LOWER LOBE PNEUMONIA.
2. New centrilobular nodular opacities in the left upper lobe. Diagnostic possibilities are (1) pneumonia or (2) alveolar pulmonary edema.
3. Moderately decreased bilateral lung volumes.
4. Endotracheal tube, nasogastric tube, and right IJ Mediport remaining in place.
CT Scan: CHEST 09/26/24- 1. Small bilateral pleural effusions with associated bilateral lower lobe probable pneumonia, new from 09/22/2024.
2. New subcutaneous gas along the right anterior chest wall, likely related to interval Mediport placement.
3. Scattered diffuse enlarged mediastinal and axillary lymphadenopathy, similar to prior PET/CT.
Echo:
PFT's:
Reports and relevant images were personally reviewed.
Critical Care time 45 mins -- The patient is admitted for acute critical illness for the treatment of vital organ failure and/or prevention of further life-threatening conditions. Total care includes time spent in review of history, physical exam,
medications, hemodynamic/ventilator parameters, laboratory data, imaging and discussion with house staff, pharmacy, respiratory therapy, russet repairer, and nursing.
Subjective Dataa
Subjective Data
Date of Service:
Date of Service: September 29, 2024
Chief Complaint: Client Technical Professional Follow Up
Subjective:
No events ON, remains off pressors
at bedside
Remains on CRRT, no new complaints
Denies pain
Objective Data
Data Reviewed
Vital Signs / I&O / Oxygen:
Vital Signs
Temp Pulse Resp BP Pulse Ox
97.3 F 88 23 133/58 94
09/29/24 05:58 09/29/24 06:30 09/29/24 06:30 09/29/24 05:58 09/29/24 06:30
Intake and Output
09/28/24 09/29/24 09/30/24
06:59 06:59 06:59
Intake Total 2110.1 / 2205.9 1448.0 / 1522.7 74.7 / 74.7
Output Total 3686 / 3805 4668 / 4678
Balance -1575.9 / -1599.1 -3220.0 / -3155.3 64.7 / 64.7
SaO2 [A/C] 100
SaO2 94
Nasal Cannula flow liters per 5
minute
Physical Exam
General: Comfortable, Good Appetite and Other (NAD)
HEENT: Normocephalic and Sinus Tenderness
Cardiovascular: S1-S2 and Regular Rhythm
Respiratory: Clear and Non-Labored Respirations
GI: Soft, Non Distended and Non Tender
Neurology: Awake, Alert, Oriented and No Motor Deficits
Skin: Warm, Dry and Good Color
Labs/Micro/Reports
Laboratory Results
09/28/24
09:15
pH 7.41
pCO2 30 L
pO2 122 H
HCO3 19.0 L
O2 Delivery Level Not Reportable
Microbiology
09/27/24 09:19 Nose MRSA Screen - Final
No Methicillin Resistant Staphylococcus aureus isolated.
09/27/24 17:50 Tracheal Aspirate Gram Stain - Preliminary
09/25/24 11:51 Blood/Venous Blood Culture - Preliminary
No Growth in 72 hours- Final report to follow
09/25/24 11:51 Blood/Venous Blood Culture - Preliminary
No Growth in 72 hours- Final report to follow
09/27/24 09:19 Urine Legionella Urinary Antigen - Final
Negative for Legionella pneumophila Serogroup 1 antigen.
A negative result does not rule out the possiblity of
Legionella infection due to other serogroups or species of
Legionella. Clinical correlation is recommended.
09/27/24 09:19 Urine Streptococcus pneumoniae Antigen (M - Final
Negative for Streptococcus pneumoniae antigen.
A negative result does not exclude infection with
Streptococcus pneumoniae. Clinical correlation is
recommended.
09/25/24 13:09 Urine Urine Culture - Final
NO GROWTH
[2024-09-29 07:17] LABS: % Immature Granulocytes 0.9 % (0-0.5); % Lymphocytes 5.4 % (20.5-51.1); % Monocytes 3.5 % (1.7-9.3); % Neutrophils 90.2 % (42.2-75.2); Absolute Immature Granulocytes 0.1 10^3/uL (0-0.05); Absolute Lymphocytes 0.4 10^3/uL (1.2-3.4); Absolute Monocytes 0.2 10^3/uL (0.1-0.6); Absolute Neutrophils 6.2 10^3/uL (1.4-6.5); Hematocrit 21.8 % (39.0-52.0); Hemoglobin 7.8 g/dL (13.0-18.0); Mean Corp Hgb Conc. 35.8 g/dL (33.0-37.0); Mean Corpuscular Hgb 27.8 pg (27.0-31.0); Mean Corpuscular Volume 77.6 fL (80.0-94.0); Mean Platelet Volume 10.6 fL (7.4-10.4); Nucleated Red Blood Cells % 0 % (-); Platelet Count 100 10^3/uL (130-400); Red Blood Cell Count 2.81 10^6/uL (4.70-6.10); Red Cell Dist. Width 16.7 % (11.5-14.5); White Blood Cell Count 6.9 10^3/uL (4.8-10.8)
--- NOTE | 2024-09-29 07:23 | PTCARENOTE ---
pt received from previous rn- aox4, nsr on monitor, 4LNC, pt with no complaints at this time. CRRT running via right fem trialysis site, see flowsheets, 2K bath with UF-200. labs sent per order. left radial bert zeroed and functioning. at
bedside- both educated about plan of care and verbalized understanding to education. insulin gtt continues as per order via right chest subq port- site c/d/i. pt able to LEVY. all safety precautions in place, call costa within reach.
[2024-09-29 07:26] LABS: INR 1.16; PT 15.2 Sec (11.4-14.6)
[2024-09-29 07:33] LABS: Vancomycin Random 14.9 ug/ml
[2024-09-29] MEDS: PROTONIX IV 40 MG IV ×2 (07:55→19:53)
[2024-09-29] MEDS: NSS (PRESERVATIVE FREE) 10 ML IV ×2 (07:55→19:53)
[2024-09-29] MEDS: ZYLOPRIM 100 MG PO (07:56)
[2024-09-29] MEDS: SENOKOT-S 1 TABLET TUBE (07:56)
[2024-09-29] MEDS: HEPARIN 5000 UNITS SC ×2 (07:56→17:50)
[2024-09-29 08:05] LABS: Glucose - Point of Care 119 mg/dl (70-99)
[2024-09-29] MEDS: NOVOLOG FLEXPEN 4 UNITS SC (08:08)
[2024-09-29 08:17] LABS: ALT (SGPT) 54 U/L (0-50); AST (SGOT) 125 U/L (17-59); Albumin 2.4 g/dl (3.5-5.0); Alkaline Phosphatase 322 U/L (38-126); Blood Urea Nitrogen 73 mg/dl (9-20); Calcium 9.3 mg/dl (8.4-10.2); Carbon Dioxide 25 mmol/L (22-30); Chloride 103 mmol/L (98-107); Estimated Creatinine Clearance 24 ml/min; Glucose 117 mg/dl (70-99); LDH 618 U/L (120-246); Magnesium 2.2 mg/dl (1.6-2.3); Phosphorus 6.5 mg/dl (2.5-4.5); Potassium 4.1 mmol/L (3.5-5.1); Sodium 136 mmol/L (135-145); Total Bilirubin 6.9 mg/dl (0.2-1.3); Total Protein 4.7 g/dl (6.3-8.2); Uric Acid 5.6 mg/dl (3.5-8.5); eGFR 20.18
--- NOTE | 2024-09-29 08:36 | PN.DE.MGMTRT ---
Insulin Management
- -
09/29/2024: Diabetes Management Consult
69 year old male admitted on 09/25 from oncologist office for abnormal workup that showed elevated bilirubin, acute kidney injury as well as pancytopenia.
PMH: cholecystectomy, large B-cell lymphoma in remission for about 5 years, diabetes, s/p surgery for prostate cancer in remission, who was sent by and was admitted on 09/25. Patient family reports that over the last few months, he had started to
develop night sweats which was concerning for return of his prior lymphoma. He also developed worsening abdominal distention couple of weeks ago along with dark urine and intermittent vomiting.
He is s/p lymph node biopsy by IRAD on 09/25/24, and MRCP done that showed compression of the bile duct by lymphadenopathy. Had also had RIJ port-a-cath placement, right axillary lymph node dissection on 09/26/24 and could not maintain his airways after
procedure, so he remained intubated-->concern for new pneumonia, started pulse steroids on 09/27/24 contributing to Hyperglycemia--> initiated Glycemic protocol.
Pt awake, alert, oriented, sitting up in bed, offers no complaints, family at bedside, all questions answered.
Was taking Glipizide 5mg BID and Metformin 1000 mg BID EDITOR. States he has a working glucose monitor with enough supplies at home. A1C 7.4%, Cr 3.2, eGFR 20.18
Pt remains on IV Steroids-Decadron 40mg daily, on Glycemic protocol, glucose range 116 to 124, requiring 2.3 to 2.6 units of insulin/hr.
Will plan to transition off insulin infusion today. Give Lantus 15 units NOW, turn drip off at 1:00 pm
Start AC NovoLog 4 units and Lantus 15 units daily in AM while on steroids. Start Moderate corrective with meals.
Will cont to follow and adjust insulin dose as steroids get tapered off.
Diabetes History
- -
Type of Diabetes: 1
Pre-Admission Diabetes Regimen
09/28/24 09/28/24 09/29/24
11:27 18:16 00:11
Creatinine 3.6 H 3.6 H 3.5 H
09/29/24
07:04
Creatinine 3.2 H
Lab Results
Hemoglobin A1c 7.4 % (4.0-5.6) H 09/25/24 10:25
Insulin Pump Settings
IP Diabetes Regimen
09/28/24 09/28/24 09/28/24
09:06 11:04 11:27
Glucose 155 H
POC Glucose 171 H 166 H
09/28/24 09/28/24 09/28/24
13:39 15:54 18:16
Glucose 148 H
POC Glucose 180 H 144 H
09/28/24 09/28/24 09/28/24
18:37 20:30 21:10
Glucose
POC Glucose 175 H 198 H 188 H
09/28/24 09/29/24 09/29/24
22:10 00:11 02:07
Glucose 122 H
POC Glucose 157 H 118 H 124 H
09/29/24 09/29/24 09/29/24
04:07 05:54 07:04
Glucose 117 H
POC Glucose 117 H 116 H
09/29/24
07:53
Glucose
POC Glucose 119 H
Amount consumed: 100%
Patient Education
--- NOTE | 2024-09-29 09:20 | W.PN.NEPH.PH ---
Today's Communication / Plan
-
CRRT
Assessment/Plan
-
Impression:
Acute renal failure (3.0)
History of prior lymphoma with suspicion for recurrence given B symptoms
Pancytopenia
Armstrong's esophagus
Hypoalbuminemia
Long-term Diabetes
Plan:
continue CRRT today
plan for conversion to IHD tomorrow
continue volume removal
follow BMP
asked IR to place tunnelled HD CVC
I do not anticipate renal recovery yet
chemo per oncology
d/w and patient
critical care time 32 minutes
-
-
Date of Service: September 29, 2024
CC / HPI / ROS
-
Chief Complaint:
Acute kidney injury
History of Present Illness:
recurrent DLBCL, initially tx with [facility] 2020. s/p IR Left LN core bx 4/
Suspected TLS s/p rasburicase 4/
CRRT in progress
off pressors
remains on 4L NC
oliguric at best
Review of Systems:.
no CP/SOB
Labs
-
Labs:
eGFR 20.18 09/29/24 07:04
Albumin 2.4 g/dl (3.5-5.0) L 09/29/24 07:04
Physical Exam
-
Vital Signs:
Vital Signs
Temp Pulse Resp BP Pulse Ox
96.8 F L 99 21 133/58 94
09/29/24 07:25 09/29/24 08:30 09/29/24 08:30 09/29/24 05:58 09/29/24 08:30
Cardiovascular:: Regular rate and rhythm
Respiratory:: Bilateral: Coarse
Lung Excursion:: Normal
Abdomen:: Nontender and Soft
Bowel Sounds:: Normal
Extremity Edema:: +3: Bilateral:
--- NOTE | 2024-09-29 09:33 | W.PN.UPDATE ---
Update Note
Progress Note Update
Pt seen on CRRT. running smoothly. UF -200/hr without issues.
following q6h labs
continue CRRT to the morning unless cartridge clots.
[2024-09-29 10:27] LABS: Glucose - Point of Care 144 mg/dl (70-99)
[2024-09-29 10:34] LABS: NT-proBNP 6060 pg/ml
[2024-09-29] MEDS: LANTUS 0.15 UNITS SC (11:04)
[2024-09-29] MEDS: DECADRON 60 MG IV (11:04)
[2024-09-29] MEDS: NOVOLOG FLEXPEN SC ×3 (11:38→18:00)
[2024-09-29] MEDS: NOVOLOG FLEXPEN-MODERATE RESISTANCE SC (12:15)
--- NOTE | 2024-09-29 12:16 | PTCARENOTE ---
pt continues on CRRT, labs sent per order. Plan of care discussed with Dr. Pelaez and Dr. Corona. assessment unchanged. right fem trialysis dressing changed. pt refusing lunch.
[2024-09-29 12:25] LABS: Glucose - Point of Care 124 mg/dl (70-99)
[2024-09-29 12:27] LABS: Ionized Calcium 1.36 mMOL/L (1.15-1.33)
[2024-09-29 12:35] LABS: Hematocrit 23.8 % (39.0-52.0); Hemoglobin 8.3 g/dL (13.0-18.0); Mean Corp Hgb Conc. 34.9 g/dL (33.0-37.0); Mean Corpuscular Hgb 26.9 pg (27.0-31.0); Mean Corpuscular Volume 77.3 fL (80.0-94.0); Mean Platelet Volume 10.5 fL (7.4-10.4); Platelet Count 107 10^3/uL (130-400); Red Blood Cell Count 3.08 10^6/uL (4.70-6.10); Red Cell Dist. Width 16.3 % (11.5-14.5)
[2024-09-29 13:18] LABS: Blood Urea Nitrogen 74 mg/dl (9-20); Calcium 10.1 mg/dl (8.4-10.2); Carbon Dioxide 25 mmol/L (22-30); Chloride 102 mmol/L (98-107); Estimated Creatinine Clearance 26 ml/min; Glucose 127 mg/dl (70-99); Magnesium 2.2 mg/dl (1.6-2.3); Potassium 4.2 mmol/L (3.5-5.1); Sodium 136 mmol/L (135-145); eGFR 22.71
--- NOTE | 2024-09-29 13:18 | W.PN.HOSP.TC ---
Today's Communication/Plan
-
tunnelled HD cath
finish IV abx course
Assessment / Plan
Assessment / Plan
69yo M with PMHx of cholecystectomy, large B-cell lymphoma in remission for 5 years, GERD, DM, Hx of prostate CA s/p resection sent by oncologist due to abnormal bloodwork. managed for possible TLS on the recurrence of lymphoma. Uric acid improved
on Rasburicase, s/p lyumph node biopsy by [facility] on 09/25/24, pending chemo port placement by [employer]. With direct bilirubinemia MRCP done that showed compression of the bile duct by lymphadenopathy. Had also Right internal jugular port-a-cath placement,
right axillary lymph node dissection on 09/26/24 and could not maintain his airways after procedure, so remained intubated. Concern for new pneumonia. Started pulse steroids on 09/27/24
Assessment:
Shock, septic (related to Pneumonia) vs related to tumor lysis syndrome
- wean pressors to off
Acute VDRF with bibasilar pneumonia
- extubated 09/28 to NC
- continue IV Unasyn - total 5 day course
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
- follow Ca, Potassium, Phosphorus, Uric acid
- Heme/Onc following
- s/p Rasburicase. Continue pulse dose steroids
- continue Allopurinol
ELIGIO with hyperkalemia, now on CRRT, initiated 09/27/24
- Nephrology following
- on CRRT - plans for iHD tomorrow. IR to place tunnelled line today
- continue Pedraza for critical I/Os
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
acute anemia/thrombocytopenia
- possible hemolysis
- s/p 1 unit PRBC
- VTE workup negative
- Heme/Onc following
non-ischemic myocardial injury
- peaked at .097
Hyperphosphatemia
Elevated total bilirubin
Elevated Alk-phos
hepatosplenomegaly
Intra and extrahepatic bile duct dilation, felt to be related to extrinsic compression from periportal lymphadenopathy.
- Abd MRI: lymphadenopathy compressing bile duct
- GI evaluated
- may need ERCP when less critically ill
Hypercholesteremia
GERD without esophagitis
Cancer of prostate s/p radical perineal prostatectomy- 10/2018- stage T3- mayuri 3+3
History of diabetes mellitus
Obesity, BMI 32
- holding Metformin and Glipizine
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
- continue Lantus + SSI
- Accu-checks
GERD
- PPI
L adrenal mass stable since 2021
Chronic non-incarcerated asymptomatic umbilical hernia
- GenSx evaluated - cont monitor
Constipation
- laxatives
DVT ppx: SCDs
Code: Full
Total Critical Care Time 45 minutes. I was immediately available to the patient and staff. I personally examined, reviewed labs, diagnostic images/reports, interpretations, treatment plans, discussed patient care with other providers and family
or caregivers (if patient is unable to make decisions), entered orders as appropriate and documented the medical record.
Anticipated Discharge: > 48 hours
Subjective/Interval History
-
Date of Service: September 29, 2024
on CRRT with plans for HD starting tomorrow
extubated 09/28 to NC - maintaining
denies complaints
Objective Data
-
Labs:
Laboratory Results
09/29/24 09/29/24 09/29/24
07:04 12:14 18:00
WBC 6.9 7.0 Pending
Hgb 7.8 L 8.3 L Pending
Hct 21.8 L 23.8 L Pending
Plt Count 100 L 107 L Pending
PT 15.2 H
INR 1.16
Sodium 136 136 Pending
Potassium 4.1 4.2 Pending
Chloride 103 102 Pending
Carbon Dioxide 25 25 Pending
BUN 73 H 74 H Pending
Creatinine 3.2 H 2.9 H Pending
Glucose 117 H 127 H Pending
Calcium 9.3 10.1 Pending
Total Bilirubin 6.9 H
AST 125 H
ALT 54 H
Alkaline Phosphatase 322 H
Vital Signs:
Vital Signs
Temp Pulse Resp BP Pulse Ox
97.3 F 83 21 133/58 94
09/29/24 11:08 09/29/24 12:00 09/29/24 12:00 09/29/24 05:58 09/29/24 12:00
I&O
09/28/24 09/29/24 09/30/24
06:59 06:59 06:59
Intake Total 2110.1 / 2205.9 1448.0 / 1522.7 433.1 / 433.1
Output Total 3686 / 3805 4668 / 4966 1842 / 1842
Balance -1575.9 / -1599.1 -3220.0 / -3443.3 -1408.9 / -1408.9
Physical Exam
-
General: No Apparent Distress
HEENT: Normocephalic
Respiratory: Clear to Auscultation; Negative Wheezes
Cardiac: Regular Rhythm and S1/S2
GI: Soft and Nontender
Genito-urinary: No Costovertebral Tender
Neuro: AO x 3
Hematologic / Lymphatic: No Lymphadenopathy
Psych: Calm
Data Reviewed
-
Critical Care Time (in minutes): 45
Labs: Labs Reviewed by me
--- NOTE | 2024-09-29 14:47 | PTCARENOTE ---
per Dr. Latanya villela to stop CRRT.
--- NOTE | 2024-09-29 15:37 | W.PN.ONC ---
Today's Communication / Plan
-
I discussed the diagnosis with the patient. The combination of renal failure and markedly elevated bilirubin makes administering most drugs challenging. We might consider a somewhat low dose of Cytoxan such as 750 mg straight dose. Alternatively,
Rituxan could be used in this situation, but could set off a severe tumor lysis syndrome. However, he is on dialysis already. But, in addition to uric acid and phosphorus, widespread micro particulate matter from tumor lysis could permanently
damage his kidneys. We will make a final decision tomorrow.
Impression
Impression
Recurrent large cell lymphoma, on the basis of my review of flow cytometry and discussing morphology with the pathologist; report not finalized
ELIGIO
pancytopenia
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
Hyperbilirubinemia of unclear etiology, MRI does not suggest obstruction; concern for diffuse infiltration of liver by lymphoma
Critically ill
Plan
Plan
excisional LN bx
mediport placement
f/u hemolysis panel, though low suspicion with normal retic
allopurinol, renal dosing
CBC, CMP, LDH, urate, phos daily
f/u nephrology consult
Subjective/Objective
Subjective/Objective
He remains very weak. He denies any breathing difficulties but is on oxygen. He is conversant and oriented. Examination is otherwise unchanged.
Vital Signs:
Vital Signs
Temp Pulse Resp BP Pulse Ox
97.8 F 95 20 141/69 96
09/29/24 15:30 09/29/24 15:30 09/29/24 15:30 09/29/24 15:30 09/29/24 15:30
Lab Results:
Laboratory Data
WBC 7.0 10^3/uL (4.8-10.8) 09/29/24 12:14
Hgb 8.3 g/dL (13.0-18.0) L 09/29/24 12:14
Plt Count 107 10^3/uL (130-400) L 09/29/24 12:14
PT 15.2 Sec (11.4-14.6) H 09/29/24 07:04
INR 1.16 09/29/24 07:04
APTT 37.5 Sec (23.4-35.0) H 09/26/24 19:39
eGFR 22.71 09/29/24 12:14
--- NOTE | 2024-09-29 15:44 | PTCARENOTE ---
crrt stopped at [address] Pelaez. pt taken to IR for new HD cath, at bedside and updated.
[2024-09-29] MEDS: UNASYN IV (17:50)
[2024-09-29] MEDS: NOVOLOG FLEXPEN-MODERATE RESISTANCE 1 UNITS SC (17:54)
--- NOTE | 2024-09-29 17:58 | PTCARENOTE ---
pt back from IR- right fem dressing c/d/i, pt and family educated about strict flat bed rest for 2 hours- verbalized understanding. left chest wall dialysis cath with blood marked on dressing from IR, no new blood noted. assessment unchanged
further.
[2024-09-29 18:04] LABS: Glucose - Point of Care 179 mg/dl (70-99)
--- NOTE | 2024-09-29 20:16 | PTCARENOTE ---
Assumed care of pt at 1900. Pt is A/O x4, pleasant and cooperative with care, slightly drowsy but easily arousable/opens eyes spontaneously. No c/o pain. Pt lying flat at start of shift s/p removal of R femoral HD cath, dressing C/D/I, HOB elevated
to high fowlers at 1999 so pt could eat dinner. SR 90s on monitor, SpO2 92% on 2LNC. See nursing shift assessment flowsheet for full physical assessment details. Call costa and personal items within reach. at bedside.
[2024-09-29 21:50] LABS: Glucose - Point of Care 301 mg/dl (70-99)
[2024-09-29] MEDS: NOVOLOG FLEXPEN 10 UNITS SC (21:58)
[2024-09-30] VITALS (13 sets, daily range): BP systolic 85–179; BP diastolic 66–91; BMI 31.7
[2024-09-30 01:19] LABS: Glucose - Point of Care 243 mg/dl (70-99)
[2024-09-30 01:22] LABS: 24 Hour Urine Total Volume Random mL; Creatinine, Urine per Volume 90 mg/dL; Phosphorus, Urine 11 mg/dL; Phosphorus/Creatinine Ratio 122 mg/g; Urine Collection Length Random hr
[2024-09-30] MEDS: NOVOLOG FLEXPEN 4 UNITS SC ×2 (01:27→07:31)
[2024-09-30] MEDS: HEPARIN 5000 UNITS SC ×2 (01:27→07:32)
--- NOTE | 2024-09-30 01:30 | PTCARENOTE ---
Midnight assessment unchanged. Pt's HS blood sugar was 301 (had just eaten dinner at 1999), [employer] ICU INSTRUMENTATION FITTER notified, pt covered with 10 units Novolog at around 2200. Rechecked sugar at around 0100 = 243, covered with an additional 4 units per
[employer] RETURNED GOODS SORTER. Pt has been resting with eyes closed, music playing, SR 80s on monitor, remains on 4LNC with SpO2 96%.
--- NOTE | 2024-09-30 04:13 | PTCARENOTE ---
Assessment unchanged. AM labs drawn/sent. SR 80s on monitor. Pt has not slept much this shift, states he only 'faded in and out'.
[2024-09-30 04:34] LABS: Hematocrit 22.4 % (39.0-52.0); Hemoglobin 7.7 g/dL (13.0-18.0); Mean Corp Hgb Conc. 34.4 g/dL (33.0-37.0); Mean Corpuscular Hgb 26.8 pg (27.0-31.0); Mean Platelet Volume 10.3 fL (7.4-10.4); Platelet Count 96 10^3/uL (130-400); Red Blood Cell Count 2.87 10^6/uL (4.70-6.10); Red Cell Dist. Width 16.3 % (11.5-14.5); White Blood Cell Count 5.6 10^3/uL (4.8-10.8)
[2024-09-30 05:07] LABS: ALT (SGPT) 89 U/L (0-50); AST (SGOT) 129 U/L (17-59); Albumin 2.4 g/dl (3.5-5.0); Alkaline Phosphatase 443 U/L (38-126); Blood Urea Nitrogen 100 mg/dl (9-20); Calcium 9.1 mg/dl (8.4-10.2); Carbon Dioxide 22 mmol/L (22-30); Chloride 104 mmol/L (98-107); Estimated Creatinine Clearance 19 ml/min; Glucose 181 mg/dl (70-99); LDH 445 U/L (120-246); Magnesium 2.3 mg/dl (1.6-2.3); Potassium 4.8 mmol/L (3.5-5.1); Sodium 137 mmol/L (135-145); Total Bilirubin 5.6 mg/dl (0.2-1.3); Total Protein 4.8 g/dl (6.3-8.2); Uric Acid 6.5 mg/dl (3.5-8.5); eGFR 15.44
[2024-09-30 05:09] LABS: % Immature Granulocytes 0.7 % (0-0.5); % Lymphocytes 6.6 % (20.5-51.1); % Monocytes 5.2 % (1.7-9.3); % Neutrophils 87.5 % (42.2-75.2); Absolute Lymphocytes 0.4 10^3/uL (1.2-3.4); Absolute Monocytes 0.3 10^3/uL (0.1-0.6); Absolute Neutrophils 4.9 10^3/uL (1.4-6.5); Nucleated Red Blood Cells % 0 % (-)
--- NOTE | 2024-09-30 07:19 | W.PN.INTV ---
Today's Communication / Plan
Recommendations
Doing well today, maintained off pressors
Trial HD today, renal following
To likely start chemo per Onc, wean IV steroids to PO
Encouraged OOB, PT/OT
Transfer to tele post HD, we will sign off upon transfer
Assessment
-
Patient is a 69-year-old gentleman with past medical history of cholecystectomy, large B-cell lymphoma in remission for about 5 years, diabetes, s/p surgery for prostate cancer in remission, who was sent by oncologist office for abnormal workup and
was admitted on 09/25. Patient family reports that over the last few months, he had started to develop night sweats which was concerning for return of his prior lymphoma. He also developed worsening abdominal distention couple of weeks ago along
with dark urine and intermittent vomiting. Lab work initially showed elevated bilirubin, acute kidney injury as well as pancytopenia. 09/26, patient had right axillary lymph node dissection as well as port placement for future chemotherapy. Post
surgery he had to be reintubated due to respiratory failure and was subsequently transferred to ICU. Patient since have developed worsening oliguric renal failure, shock requiring pressor support. Soldering Machine Feeder consultation was requested for further
management. Patient had a trialysis catheter placed and was started on CRRT in view of anuria, worsening renal function and hypotension requiring 2 pressors.
Shock, septic (related to Pneumonia) vs related to tumor lysis syndrome
Acute respiratory failure with bibasilar pneumonia
ELIGIO with hyperkalemia, now on CRRT, initiated 09/27/24
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
Anemia/thrombocytopenia
Hyperphosphatemia
Elevated total bilirubin
Intra and extrahepatic bile duct dilation, felt to be related to extrinsic compression from periportal lymphadenopathy.
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
Hypercholesteremia
GERD without esophagitis
Cancer of prostate s/p radical perineal prostatectomy- 10/2018- stage T3- mayuri 3+3
B-cell lymphoma, unspecified B-cell lymphoma type, unspecified body region
History of diabetes mellitus
Obesity, BMI 32
knee arthroscopy
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
s/p neck lipoma excision
throat ablation 2023
Plan
Off sedation, minimal pain
Tylenol PRN for now
Anxiety noted, consult psych for PO meds
Trial 1 dose of xanax--will not continue
RASS - 0
Patient now off vasopressors, completely
Hemodynamically stable
Monitor on telemetry
Extubated 09/28 to nasal cannula
Stable on NC
No history of respiratory disease
Family reports that patient had been coughing for last couple of weeks and had an x-ray as an outpatient which was negative
Diet advancement
Aspiration precautions
PPI if needed, presumed from outpatient
GI service on case
Continue to trend LFTs, bilirubin
Follow-up on blood cultures, so far no growth
Continue broad-spectrum antibiotic vancomycin and Zosyn
Check MRSA screen, negative--stop Vanc
Legionella and strep pneumo antigen neg
CXR shows improving infiltrates, f/u imaging in AM, sputum culture negative
Can complete Unasyn x 5 days
Suspect this is sequelae of tumor lysis syndrome. S/p rasburicase.
Pulse dose IV steroids, Dexamethasone 40 mg IV. IV Cytoxan being considered.
Oncology following
Transition IV steroids to PO per team
CRRT ongoing, likely to need HD
Change IV to tunneled HD cath per team, IR consulted
Nephrology service on case
Trialysis catheter placed 09/27
HD planning today
Insulin infusion, transition to SQ regiment
DM DE ICER INSTALLER following
DVT prophylaxis. Heparin s.c.
GI Prophylaxis. IV protonix
Diagnostic Data
Chest X-Ray: 09/29/24-Slightly improved bibasilar opacification suggesting resolving subsegmental atelectasis and/or pneumonia.
09/28/24- 1. Large bilateral lower lobe airspace consolidations which appear to have mildly decreased in size and density since 09/26/2024 suggesting mild improvement in SEVERE BILATERAL LOWER LOBE PNEUMONIA.
2. New centrilobular nodular opacities in the left upper lobe. Diagnostic possibilities are (1) pneumonia or (2) alveolar pulmonary edema.
3. Moderately decreased bilateral lung volumes.
4. Endotracheal tube, nasogastric tube, and right IJ Mediport remaining in place.
CT Scan: CHEST 09/26/24- 1. Small bilateral pleural effusions with associated bilateral lower lobe probable pneumonia, new from 09/22/2024.
2. New subcutaneous gas along the right anterior chest wall, likely related to interval Mediport placement.
3. Scattered diffuse enlarged mediastinal and axillary lymphadenopathy, similar to prior PET/CT.
Echo:
PFT's:
Reports and relevant images were personally reviewed.
Critical Care time 35 mins -- The patient is admitted for acute critical illness for the treatment of vital organ failure and/or prevention of further life-threatening conditions. Total care includes time spent in review of history, physical exam,
medications, hemodynamic/ventilator parameters, laboratory data, imaging and discussion with house staff, pharmacy, respiratory therapy, repair armature winder helper, and nursing.
Subjective Dataa
Subjective Data
Date of Service:
Date of Service: September 30, 2024
Chief Complaint: Soldering Machine Feeder Follow Up
Subjective:
No acute events ON, remains stable on 4L, off pressors
Objective Data
Data Reviewed
Vital Signs / I&O / Oxygen:
Vital Signs
Temp Pulse Resp BP Pulse Ox
97.8 F 82 29 137/70 95
09/30/24 03:38 09/30/24 06:00 09/30/24 06:00 09/29/24 17:38 09/30/24 06:00
Intake and Output
09/29/24 09/30/24 10/01/24
06:59 06:59 06:59
Intake Total 1448.0 / 1522.7 823.1 / 823.1
Output Total 4668 / 4966 2455 / 2455
Balance -3220.0 / -3443.3 -1631.9 / -1631.9
SaO2 [A/C] 100
SaO2 95
Nasal Cannula flow liters per 4
minute
Physical Exam
General: Comfortable, Good Appetite and Other (NAD)
HEENT: Normocephalic and Sinus Tenderness
Cardiovascular: S1-S2 and Regular Rhythm
Respiratory: Clear and Non-Labored Respirations
GI: Soft, Non Distended and Non Tender
Neurology: Awake, Alert, Oriented and No Motor Deficits
Skin: Warm, Dry and Good Color
Labs/Micro/Reports
Lab Data
09/30/24 04:04
09/30/24 04:04
Laboratory Results
09/29/24
07:04
PT 15.2 H
INR 1.16
Microbiology
09/25/24 11:51 Blood/Venous Blood Culture - Preliminary
No Growth in 4 days- Final report to follow
09/25/24 11:51 Blood/Venous Blood Culture - Preliminary
No Growth in 4 days- Final report to follow
09/27/24 17:50 Tracheal Aspirate Respiratory Culture - Preliminary
Usual Respiratory Belle
09/27/24 17:50 Tracheal Aspirate Gram Stain - Preliminary
09/27/24 09:19 Nose MRSA Screen - Final
No Methicillin Resistant Staphylococcus aureus isolated.
09/27/24 09:19 Urine Legionella Urinary Antigen - Final
Negative for Legionella pneumophila Serogroup 1 antigen.
A negative result does not rule out the possiblity of
Legionella infection due to other serogroups or species of
Legionella. Clinical correlation is recommended.
09/27/24 09:19 Urine Streptococcus pneumoniae Antigen (M - Final
Negative for Streptococcus pneumoniae antigen.
A negative result does not exclude infection with
Streptococcus pneumoniae. Clinical correlation is
recommended.
[2024-09-30] MEDS: NOVOLOG FLEXPEN-MODERATE RESISTANCE 1 UNITS SC ×3 (07:31→17:34)
[2024-09-30 07:32] LABS: Glucose - Point of Care 185 mg/dl (70-99)
[2024-09-30] MEDS: MIRALAX 17 GRAMS TUBE (07:32)
[2024-09-30] MEDS: SENOKOT-S 1 TABLET PO (07:32)
[2024-09-30] MEDS: NSS (PRESERVATIVE FREE) 10 ML IV (07:32)
[2024-09-30] MEDS: ZYLOPRIM 100 MG PO (07:32)
[2024-09-30] MEDS: PROTONIX IV 40 MG IV (07:32)
[2024-09-30] MEDS: LANTUS 0.15 UNITS SC (07:43)
--- NOTE | 2024-09-30 07:54 | PTCARENOTE ---
pt received from previous rn- aox3, on 4LNC, nsr on monitor, bp elevated on bert pt reported to be anxious, Dr. Corona aware. pt assisted oob to chair. morrow draining yellow urine. pt and aware of plan of care for shift- verbalized understanding
to education. left radial bert zeroed. all safety precautions in place, call costa within reach.
--- NOTE | 2024-09-30 08:11 | W.PN.ONC2 ---
Today's Communication / Plan
-
.
Impression
Impression
Recurrent large cell lymphoma, on the basis of my review of flow cytometry and discussing morphology with the pathologist; report not finalized
TLS s/p rasburicase 09/25
mediport placed 09/26
ELIGIO started HD
Extubated and off pressors
PNA
pancytopenia -leukopenia resolved, platelet count 96,000, Hgb 7.7g/dL s/p 2U prbc during hospitalization, last 09/29
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
LVEF 55-60%
Hyperbilirubinemia possibly due to intrahepatic and extrahepatic bile duct dilatation and possible extrinsic compression from periportal lymphadenopathy, although the CBD does not appear to be significantly narrowed at the level of the
lymphadenopathy. Hepatosplenomegaly and hepatic steatosis
Plan
Plan
on HD
Dexamethasone 40mg daily x 4 (started 09/27), consider transition to prednisone tomorrow
PPI while on steroids
transfuse Hgb <7 or as needed for sxs anemia
allopurinol, renal dosing
CBC, CMP, LDH, urate, phos daily
final path pending
Rituxan and DH vs transfer to [facility] d/w [place] [facility] -met with pt, , and daughter who are agreeable to plan
Subjective/Objective
Subjective
no new complaints
improved Tbili
Vital Signs:
Vital Signs
Temp Pulse Resp BP Pulse Ox
97.8 F 84 24 149/80 96
09/30/24 03:38 09/30/24 07:00 09/30/24 07:00 09/30/24 07:21 09/30/24 08:00
Lab Results:
Laboratory Data
WBC 5.6 10^3/uL (4.8-10.8) 09/30/24 04:04
Hgb 7.7 g/dL (13.0-18.0) L 09/30/24 04:04
Plt Count 96 10^3/uL (130-400) L 09/30/24 04:04
PT 15.2 Sec (11.4-14.6) H 09/29/24 07:04
INR 1.16 09/29/24 07:04
APTT 37.5 Sec (23.4-35.0) H 09/26/24 19:39
eGFR 15.44 09/30/24 04:04
Orders
Orders
Orders From Last 24 Hours
09/30/24 04:04
CBC/With Diff [Complete Blood Count/With Diff] IN AM
CMP [Comprehensive Metabolic Panel] IN AM
LDH IN AM
Phos [Phosphorus] IN AM
Uric Acid IN AM
10/01/24 06:00
CBC/With Diff [Complete Blood Count/With Diff] IN AM
CMP [Comprehensive Metabolic Panel] IN AM
LDH IN AM
Phos [Phosphorus] IN AM
Uric Acid IN AM
[2024-09-30] MEDS: LOPRESSOR 5 MG IV (08:57)
--- NOTE | 2024-09-30 09:03 | PN.DE.MGMTRT ---
Insulin Management
- -
09/30/2024: Diabetes Management Follow up
69 year old male admitted on 09/25 from oncologist office for abnormal workup that showed elevated bilirubin, acute kidney injury as well as pancytopenia.
PMH: cholecystectomy, large B-cell lymphoma in remission for about 5 years, diabetes, s/p surgery for prostate cancer in remission, who was sent by and was admitted on 09/25. Patient family reports that over the last few months, he had started to
develop night sweats which was concerning for return of his prior lymphoma. He also developed worsening abdominal distention couple of weeks ago along with dark urine and intermittent vomiting.
He is s/p lymph node biopsy by IRAD on 09/25/24, and MRCP done that showed compression of the bile duct by lymphadenopathy. Had also had RIJ port-a-cath placement, right axillary lymph node dissection on 09/26/24 and could not maintain his airways after
procedure, so he remained intubated-->concern for new pneumonia, started pulse steroids on 09/27/24 contributing to Hyperglycemia--> initiated Glycemic protocol. 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 States he has a working
glucose monitor with enough supplies at home. A1C 7.4%, Cr 3.2-->4.0, eGFR 15.44 today.
Pt awake, alert, oriented, sitting up in bed, offers no complaints, on HD treatment.
Pt remains on IV Steroids-Decadron 40mg daily, Transitioned off Glycemic protocol to SQ insulin 09/29. Premeal Glucose range 124 to 179.
Pt had a late dinner, states he was given a regular taylor lalo, PP glucose up to 301 @ HS, received 10 units of aspart, improved to 243, received an additional 4 units, FBG 181 V this AM
Will increase AC NovoLog to 6 units. Cont Lantus 15 units daily in AM while on steroids and Moderate corrective with meals.
Will cont to follow and adjust insulin dose as steroids get tapered off.
Discussed with nurse.
Diabetes History
- -
Type of Diabetes: 2 requiring insulin
Pre-Admission Diabetes Regimen
09/29/24 09/29/24 09/30/24
12:14 18:00 04:04
Creatinine 2.9 H Cancelled 4.0 H
Lab Results
Hemoglobin A1c 7.4 % (4.0-5.6) H 09/25/24 10:25
Insulin Pump Settings
IP Diabetes Regimen
09/29/24 09/29/24 09/29/24
10:15 12:13 12:14
Glucose 127 H
POC Glucose 144 H 124 H
09/29/24 09/29/24 09/29/24
17:53 18:00 21:38
Glucose Cancelled
POC Glucose 179 H 301 H
09/30/24 09/30/24 09/30/24
01:08 04:04 07:21
Glucose 181 H
POC Glucose 243 H 185 H
Meal type: Dinner
Meal type: Lunch
Amount consumed: 100%
Amount consumed: Patient refused
Patient Education
--- NOTE | 2024-09-30 09:57 | W.PN.HOSP.TC ---
Today's Communication/Plan
-
HD today
consider A-line DC
follow Onc recs re: steroids and Rituxan
Psych eval
Assessment / Plan
Assessment / Plan
69yo M with PMHx of cholecystectomy, large B-cell lymphoma in remission for 5 years, GERD, DM, Hx of prostate CA s/p resection sent by oncologist due to abnormal bloodwork. managed for possible TLS on the recurrence of lymphoma. Uric acid improved
on Rasburicase, s/p lyumph node biopsy by [facility] on 09/25/24, pending chemo port placement by [facility]. With direct bilirubinemia MRCP done that showed compression of the bile duct by lymphadenopathy. Had also Right internal jugular port-a-cath placement,
right axillary lymph node dissection on 09/26/24 and could not maintain his airways after procedure, so remained intubated. Concern for new pneumonia. Started pulse steroids on 09/27/24
Assessment:
Shock, septic (related to Pneumonia) vs related to tumor lysis syndrome
- wean pressors to off
Acute VDRF with bibasilar pneumonia
- extubated 09/28 to NC; wean as able
- continue IV Unasyn - day 4/5 day course
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
- follow Ca, Potassium, Phosphorus, Uric acid
- Heme/Onc following
- s/p Rasburicase. continue IV steroids.
- Rituxan planned in next 24-48 hours
- continue Allopurinol
ELIGIO with hyperkalemia, now on CRRT, initiated 09/27/24
- Nephrology following
- s/p tunnelled HD cath 09/29
- HD to start today
- continue Pedraza for critical I/Os
acute anemia/thrombocytopenia
- possible hemolysis
- s/p 1 unit PRBC
- VTE workup negative
- Heme/Onc following
non-ischemic myocardial injury
- peaked at .097
Hyperphosphatemia
Elevated total bilirubin
Elevated Alk-phos
hepatosplenomegaly
- follow labs
- likely related to tumor burden in liver
Intra and extrahepatic bile duct dilation, felt to be related to extrinsic compression from periportal lymphadenopathy.
- Abd MRI: lymphadenopathy compressing bile duct
- GI evaluated
- may need ERCP when less critically ill
Hypercholesteremia
GERD without esophagitis
Cancer of prostate s/p radical perineal prostatectomy- 10/2018- stage T3- mayuri 3+3
History of diabetes mellitus
Obesity, BMI 32
- holding Metformin and Glipizide
- [employer] following
- continue Lantus + SSI
- Accu-checks
GERD
- PPI
L adrenal mass stable since 2021
Chronic non-incarcerated asymptomatic umbilical hernia
- [facility] evaluated - cont monitor
Constipation
- laxatives
Depression/anxiety over clinical course
- psych consulted; patient request/agrees
DVT ppx: SCDs
Code: Full
Total Critical Care Time 42 minutes. I was immediately available to the patient and staff. I personally examined, reviewed labs, diagnostic images/reports, interpretations, treatment plans, discussed patient care with other providers and family
or caregivers (if patient is unable to make decisions), entered orders as appropriate and documented the medical record.
Anticipated Discharge: > 48 hours
Subjective/Interval History
-
Date of Service: September 30, 2024
resting comfortably
nervous/anxious over lymphoma treatment, HD - agrees to psych consult
Objective Data
-
Labs:
Laboratory Results
09/30/24
04:04
WBC 5.6
Hgb 7.7 L
Hct 22.4 L
Plt Count 96 L
Sodium 137
Potassium 4.8
Chloride 104
Carbon Dioxide 22
BUN 100 H
Creatinine 4.0 H
Glucose 181 H
Calcium 9.1
Total Bilirubin 5.6 H
AST 129 H
ALT 89 H
Alkaline Phosphatase 443 H
Vital Signs:
Vital Signs
Temp Pulse Resp BP Pulse Ox
97.5 F 81 27 179/91 96
09/30/24 08:00 09/30/24 09:00 09/30/24 09:00 09/30/24 08:53 09/30/24 09:00
I&O
09/29/24 09/30/24 10/01/24
06:59 06:59 06:59
Intake Total 1448.0 / 1522.7 823.1 / 823.1
Output Total 4668 / 4966 2455 / 2470 55 / 55
Balance -3220.0 / -3443.3 -1631.9 / -1646.9 -55 / -55
Physical Exam
-
General: No Apparent Distress
HEENT: Normocephalic and Atraumatic
Respiratory: Clear to Auscultation; Negative Wheezes
Cardiac: Regular Rhythm and S1/S2
GI: Soft
Neuro: AO x 3
Psych: Calm
Data Reviewed
-
Critical Care Time (in minutes): 42
Labs: Labs Reviewed by me
[2024-09-30] MEDS: DECADRON 60 MG IV (11:05)
--- NOTE | 2024-09-30 11:13 | W.PN.UPDATE ---
Update Note
Progress Note Update
Psychiatric evaluation dictated.
Patient reports he was both anxious and depressed regarding the re occurrence of his lymphoma, worries understandably about his future and response to treatment. At thie same time he has support from his famiily and friends and that provides him
with relief.
He denies hopelessness, helplessness or suicidal thoughts. He denies previous psychiatric history or having used psychotropic meds.
For now I do not feel psychotropic medications are needed. He seems content with his family and friends providing support but will ask for professional help if needed.
Discussed my recommendations with daughter as well who was present.
--- NOTE | 2024-09-30 11:22 | W.PN.UPDATE ---
Update Note
Progress Note Update
Patient accepted by Dr. Enrique as level 0 to [facility] for next steps in lymphoma -awaiting bed.
Requested to pathology that available cell block/slide be sent to [facility] for there review.
--- NOTE | 2024-09-30 11:22 | PTCARENOTE ---
left radial bert removed per order, pressure dressing applied. assessment unchanged. pt remains oob to chair.
[2024-09-30 12:06] LABS: Glucose - Point of Care 180 mg/dl (70-99)
--- NOTE | 2024-09-30 12:13 | W.PN.NEPH.HD ---
Assessment
-
Seen on HD. looks uncomfortable, but no complaints. VSS< access ok
on 4L NC
UF tomorrow
Progress Note - Hemodialysis
-
Date of Service: September 30, 2024
Duration: 30 minutes and 3 hours
Potassium Bath: 3
Calcium Bath: 2.5
Opti-Dialyzer: 160
Ultrafiltration: Other (2.5)
Blood Flow: 400
Dialysate Flow: 600
Heparin: no
EPO: no
--- NOTE | 2024-09-30 12:16 | W.PN.NEPH.PH ---
Today's Communication / Plan
-
UF tomorrow
Assessment/Plan
-
Impression:
Acute renal failure (3.0)
History of prior lymphoma with suspicion for recurrence given B symptoms
Pancytopenia
Armstrong's esophagus
Hypoalbuminemia
Long-term Diabetes
Plan:
HD today
no signs of renal recovery currently
follow Cr trend
remains on supplemental O2
Abx for PNA continue
still appears to be volume overloaded as well
plan for UF treatment tomorrow to try and optimize for impending chemo
could eventually see what his response to lasix will be
critical care time 34 minutes
-
-
Date of Service: September 30, 2024
CC / HPI / ROS
-
Chief Complaint:
Acute kidney injury
History of Present Illness:
recurrent DLBCL, initially tx with [facility] 2020. s/p IR Left LN core bx 09/25
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
CRRT stopped yesterday
off pressors
remains on 4L NC
oliguric at best
critcally ill in ICU
Review of Systems:.
no CP/SOB
looks uncomfortable
Labs
-
Labs:
WBC 5.6 10^3/uL (4.8-10.8) 09/30/24 04:04
RBC 2.87 10^6/uL (4.70-6.10) L 09/30/24 04:04
Hgb 7.7 g/dL (13.0-18.0) L 09/30/24 04:04
Hct 22.4 % (39.0-52.0) L 09/30/24 04:04
Plt Count 96 10^3/uL (130-400) L 09/30/24 04:04
Sodium 137 mmol/L (135-145) 09/30/24 04:04
Potassium 4.8 mmol/L (3.5-5.1) 09/30/24 04:04
Chloride 104 mmol/L (98-107) 09/30/24 04:04
Carbon Dioxide 22 mmol/L (22-30) 09/30/24 04:04
BUN 100 mg/dl (9-20) H 09/30/24 04:04
Creatinine 4.0 mg/dL (0.7-1.3) H 09/30/24 04:04
eGFR 15.44 09/30/24 04:04
Glucose 181 mg/dl (70-99) H 09/30/24 04:04
Calcium 9.1 mg/dl (8.4-10.2) 09/30/24 04:04
Phosphorus 7.0 mg/dl (2.5-4.5) H 09/30/24 04:04
Xmj-T-Jqwnqkidomd Pept 6060 pg/ml 09/29/24 00:11
Albumin 2.4 g/dl (3.5-5.0) L 09/30/24 04:04
Physical Exam
-
Vital Signs:
Vital Signs
Temp Pulse Resp BP Pulse Ox
97.5 F 83 18 141/81 95
09/30/24 08:00 09/30/24 11:00 09/30/24 11:00 09/30/24 10:47 09/30/24 11:00
Cardiovascular:: Regular rate and rhythm
Respiratory:: Bilateral: Coarse and Bilateral: Rales
Lung Excursion:: Normal
Abdomen:: Nontender and Soft
Bowel Sounds:: Normal
Extremity Edema:: +2: Bilateral:
--- NOTE | 2024-09-30 13:51 | PTCARENOTE ---
pt bleeding from left chest wall hd cath, Dr. Pelaez notified by [employer] crew person Swapna. Dr. Ibrahim notified, IR RN Lorena at bedside to address, ir consulted for line. [facility] sent as per order.
[2024-09-30 13:53] LABS: Hematocrit 24.1 % (39.0-52.0); Hemoglobin 8.4 g/dL (13.0-18.0)
--- NOTE | 2024-09-30 15:25 | CM ---
CM following re: discharge planning.
Reviewed pt's chart, met with pt and pt's spouse at bedside.
D/C plan: transfer to [facility] for further treatment.
CM will follow to assit pt with a transfer to [facility] as needed.
--- NOTE | 2024-09-30 15:39 | PTCARENOTE ---
left arm swollen and bruised, Dr. Ibrahim aware, ultrasound ordered.
[2024-09-30] MEDS: HEPARIN SC (17:36)
[2024-09-30 17:44] LABS: Glucose - Point of Care 191 mg/dl (70-99)
[2024-09-30] MEDS: UNASYN IV (17:48)
--- NOTE | 2024-09-30 17:49 | PTCARENOTE ---
pt back from IR for left chest wall hd cath. report given to Jose Guadalupe Rendon at [facility] to room [id number]. and patient aware of transfer, pt sent with belongings. pt taken via [facility].
== END 2024-09-30 17:54 | disposition short-term general hospital (02) | DRG 673 ==
LOC: ICU 12:09
PROVIDERS: Internal Medicine Critical Care Medicine; Internal Medicine Nephrology; Nurse Practitioner; Nurse Practitioner Acute Care; Nurse Practitioner Family; Radiology Diagnostic Radiology; Radiology Vascular & Interventional Radiology; Specialist; Surgery; ADMITTING PHYSICIAN Internal Medicine; ATTENDING PHYSICIAN Internal Medicine; CONSULT PHYSICIAN Internal Medicine; CONSULT PHYSICIAN Psychiatry & Neurology Psychiatry; CONSULT PHYSICIAN Specialist; CONSULT PHYSICIAN Surgery; EMERGENCY PHYSICIAN Emergency Medicine; FAMILY PHYSICIAN Family Medicine; OTHER PHYSICIAN Internal Medicine
PROC: 5A1945Z Respiratory Ventilation, 24-96 Consecutive Hours (ICD-10-PCS; 2024-09-25)
PROC: 0BH17EZ Insertion of Endotracheal Airway into Trachea, Via Natural or Artificial Opening (ICD-10-PCS; 2024-09-25)
PROC: 07B63ZX Excision of Left Axillary Lymphatic, Percutaneous Approach, Diagnostic (ICD-10-PCS; 2024-09-25)
PROC: 07B50ZX Excision of Right Axillary Lymphatic, Open Approach, Diagnostic (ICD-10-PCS; 2024-09-26)
PROC: 0JH60WZ Insertion of Totally Implantable Vascular Access Device into Chest Subcutaneous Tissue and Fascia, Open Approach (ICD-10-PCS; 2024-09-26)
PROC: 02H633Z Insertion of Infusion Device into Right Atrium, Percutaneous Approach (ICD-10-PCS; 2024-09-26)
PROC: B5181ZA Fluoroscopy of Superior Vena Cava using Low Osmolar Contrast, Guidance (ICD-10-PCS; 2024-09-26)
PROC: 0JWT0WZ Revision of Totally Implantable Vascular Access Device in Trunk Subcutaneous Tissue and Fascia, Open Approach (ICD-10-PCS; 2024-09-26)
PROC: 06HY33Z Insertion of Infusion Device into Lower Vein, Percutaneous Approach (ICD-10-PCS; 2024-09-27)
PROC: 5A1D90Z Performance of Urinary Filtration, Continuous, Greater than 18 hours Per Day (ICD-10-PCS; 2024-09-27)
PROC: 0BP1XDZ Removal of Intraluminal Device from Trachea, External Approach (ICD-10-PCS; 2024-09-28)
PROC: 30233N1 Transfusion of Nonautologous Red Blood Cells into Peripheral Vein, Percutaneous Approach (ICD-10-PCS; 2024-09-28)
PROC: 30243N1 Transfusion of Nonautologous Red Blood Cells into Central Vein, Percutaneous Approach (ICD-10-PCS; 2024-09-29)
PROC: 0JH60XZ Insertion of Tunneled Vascular Access Device into Chest Subcutaneous Tissue and Fascia, Open Approach (ICD-10-PCS; 2024-09-29)
PROC: 0J2TXYZ Change Other Device in Trunk Subcutaneous Tissue and Fascia, External Approach (ICD-10-PCS; 2024-09-30)
PROC: 5A1D70Z Performance of Urinary Filtration, Intermittent, Less than 6 Hours Per Day (ICD-10-PCS; 2024-09-30)
DX: E88.3 Tumor lysis syndrome (principal); A41.89 Other specified sepsis; R65.21 Severe sepsis with septic shock; J96.01 Acute respiratory failure with hypoxia; J18.9 Pneumonia, unspecified organism; C83.34 Diffuse large B-cell lymphoma, lymph nodes of axilla and upper limb; D61.818 Other pancytopenia; J98.11 Atelectasis; T82.524A Displacement of infusion catheter, initial encounter; I5A Non-ischemic myocardial injury (non-traumatic); C83.398 Diffuse large B-cell lymphoma of other extranodal and solid organ sites; N17.9 Acute kidney failure, unspecified; K22.70 Barrett's esophagus without dysplasia; R59.0 Localized enlarged lymph nodes; E88.09 Other disorders of plasma-protein metabolism, not elsewhere classified; E86.0 Dehydration; F17.290 Nicotine dependence, other tobacco product, uncomplicated; K21.9 Gastro-esophageal reflux disease without esophagitis; K76.0 Fatty (change of) liver, not elsewhere classified; K42.9 Umbilical hernia without obstruction or gangrene; R16.2 Hepatomegaly with splenomegaly, not elsewhere classified; K44.9 Diaphragmatic hernia without obstruction or gangrene; K57.30 Diverticulosis of large intestine without perforation or abscess without bleeding; E27.9 Disorder of adrenal gland, unspecified; D46.9 Myelodysplastic syndrome, unspecified; K59.00 Constipation, unspecified; E10.65 Type 1 diabetes mellitus with hyperglycemia; R94.5 Abnormal results of liver function studies; R74.02 Elevation of levels of lactic acid dehydrogenase [LDH]; K83.8 Other specified diseases of biliary tract; E66.9 Obesity, unspecified; E78.00 Pure hypercholesterolemia, unspecified; D69.6 Thrombocytopenia, unspecified; F43.23 Adjustment disorder with mixed anxiety and depressed mood; E83.39 Other disorders of phosphorus metabolism; T81.82XA Emphysema (subcutaneous) resulting from a procedure, initial encounter; E87.5 Hyperkalemia; Y84.8 Other medical procedures as the cause of abnormal reaction of the patient, or of later complication, without mention of misadventure at the time of the procedure; Y92.239 Unspecified place in hospital as the place of occurrence of the external cause; Z85.46 Personal history of malignant neoplasm of prostate; Z79.84 Long term (current) use of oral hypoglycemic drugs; Z87.19 Personal history of other diseases of the digestive system; Z90.49 Acquired absence of other specified parts of digestive tract; Z11.52 Encounter for screening for COVID-19; Z80.0 Family history of malignant neoplasm of digestive organs; Z68.32 Body mass index [BMI] 32.0-32.9, adult; Z92.21 Personal history of antineoplastic chemotherapy
CPT/HCPCS: 88305; 88307; 36558; 36581; 36598; 38505; 71045; 71046; 71250; 74176; 74181; 76000; 76937; 76942; 77001; 80048; 80053; 80076; 80202; 81003; 81015; 82140; 82248; 82330; 82550; 82570; 82728; 82784; 82787; 82805; 82962; 83010; 83036; 83516; 83605; 83615; 83735; 83880; 83935; 84100; 84105; 84156; 84300; 84484; 84550; 85014; 85018; 85025; 85027; 85045; 85379; 85384; 85610; 85730; 86231; 86663; 86664; 86665; 86704; 86706; 86708; 86803; 86850; 86880; 86900; 86901; 86920; 87040; 87070; 87086; 87205; 87340; 87449; 87502; 87811; 87899; 88333; 88341; 88342; 93005; 93306; 93970; 94002; 94003; 99152; 99153; 99285; C1750; C1769; C1788; G0257; J2783; P9016; P9047